=== PATIENT | female | born 1965 | race Caucasian/White ===

== ENCOUNTER → 2016-08-16 | Outpatient (CLI) | payer OTHER ==
[~2016-08-16] MED LIST: BND25 PO; DXY100 PO; LACTCAP3 PO; LVMIPEN SC; METF-382 PO; OXYC5TAB PO
[2016-08-16 10:25] LABS: ESTIMATED AVERAGE GLUCOSE 134 mg/dl; HA1C FLAG Normal (Normal)
[2016-08-16 10:54] LABS: ALT/SGPT 33 U/L (12-78); AST/SGOT 17 U/L (15-37); BLOOD UREA NITROGEN 18 mg/dl (7-18); BUN/CREATININE RATIO 32.3 (10-20); CALCIUM 9.4 mg/dl (8.5-10.1); CARBON DIOXIDE 30 mmol/L (21-32); CHLORIDE 101 mmol/L (98-107); CREATININE 0.57 mg/dl (0.60-1.20); GLUCOSE 170 mg/dl (70-99); POTASSIUM 4.4 mmol/L (3.5-5.1); SODIUM 140 mmol/L (136-145)
[2016-08-16 11:05] LABS: ALB/GLOB RATIO 1.2 (0.9-2); ALKALINE PHOSPHATASE 94 U/L (45-117); CHOLESTEROL 204 mg/dl (0-200); CHOLESTEROL/HDL RATIO 3.3; HDL CHOLESTEROL 62 mg/dl; LDL CHOLESTEROL CALCULATED 116 mg/dl; TRIGLYCERIDES 129 mg/dl (0-150); VERY LOW DENSITY LIPOPROT CALC 26 mg/dl
== END | disposition home or self-care (01) ==
LOC: C.LAB 09:05
PROVIDERS: ATTEND Family Medicine
DX: E11.65 Type 2 diabetes mellitus with hyperglycemia (principal)

== ENCOUNTER → 2017-08-28 | Outpatient (CLI) | payer OTHER ==
[~2017-08-28] MED LIST changes: -BND25 PO; +DIPH25CA5 PO
[2017-08-28 09:43] LABS: HEMATOCRIT 46.6 % (37-47); HEMOGLOBIN 15.1 g/dL (12.0-16.0); IG# 0.02 K/uL (0.00-0.02); LYMPH % 23.7 %; LYMPH ABS # 1.75 K/uL (1.2-3.4); MEAN CELL VOLUME 79.8 fL (80-100); MEAN CORPUSCULAR HEMOGLOBIN 25.9 pg (25-34); MEAN CORPUSCULAR HGB CONC 32.4 g/dl (32-36); MEAN PLATELET VOLUME 11.3 fL (7.4-10.4); MONO % 7.2 %; MONO ABS # 0.53 K/uL (0.11-0.59); NEUT % 68.8 %; NEUT ABS # 5.08 K/uL (1.4-6.5); PLATELET COUNT 217 K/uL (130-400); RED CELL DISTRIBUTION WIDTH CV 15.2 % (11.5-14.5); WHITE BLOOD COUNT 7.38 K/uL (4.8-10.8)
[2017-08-28 10:00] LABS: ALBUMIN 3.8 gm/dl (3.4-5.0); ALT/SGPT 31 U/L (12-78); AST/SGOT 14 U/L (15-37); BLOOD UREA NITROGEN 21 mg/dl (7-18); CALCIUM 8.8 mg/dl (8.5-10.1); CARBON DIOXIDE 29 mmol/L (21-32); CREATININE 0.66 mg/dl (0.60-1.20); GLUCOSE 187 mg/dl (70-99); POTASSIUM 4.4 mmol/L (3.5-5.1); SODIUM 133 mmol/L (136-145)
[2017-08-28 10:04] LABS: HEMOGLOBIN A1C 7.9 % (4.5-5.6)
[2017-08-28 10:11] LABS: ALKALINE PHOSPHATASE 141 U/L (45-117); CHOLESTEROL 202 mg/dl (0-200); LDL CHOLESTEROL CALCULATED 110 mg/dl; TOTAL PROTEIN 7.5 gm/dl (6.4-8.2)
== END | disposition home or self-care (01) ==
LOC: C.LAB 07:23
PROVIDERS: ATTEND Internal Medicine
DX: Z00.00 Encounter for general adult medical examination without abnormal findings (principal); E78.5 Hyperlipidemia, unspecified; I10 Essential (primary) hypertension; E11.9 Type 2 diabetes mellitus without complications

== ENCOUNTER → 2017-09-12 | Outpatient (CLI) | payer OTHER ==
--- NOTE | 2017-09-12 18:42 | DIAGNOSTIC IMAGING REPORT ---
CHEST 2 VIEWS ROUTINE CLINICAL HISTORY: 51 years-old Female presenting with COUGH. TECHNIQUE: PA and lateral views of the chest were obtained. COMPARISON: 03/17/2016. FINDINGS: Atherosclerosis of the aortic arch. Cardiac silhouette normal in size. Lungs and pleural spaces clear. Osseous structures normal. Upper abdomen normal. IMPRESSION: 1. No acute cardiopulmonary disease. Electronically signed by: Stan Burnham M.D. 09/12/2017 6:41 PM Dictated Date/Time: 09/12/2017 6:40 PM
== END | disposition home or self-care (01) ==
LOC: C.RAD 18:24
PROVIDERS: ATTEND Internal Medicine
DX: R05 Cough (principal)

== ENCOUNTER → 2017-10-23 | Outpatient (CLI) | payer OTHER ==
[2017-10-23 17:54] LABS: BLOOD UREA NITROGEN 18 mg/dl (7-18); CARBON DIOXIDE 27 mmol/L (21-32); GLUCOSE 235 mg/dl (70-99); SODIUM 134 mmol/L (136-145)
== END | disposition home or self-care (01) ==
LOC: C.LAB1850 16:06
PROVIDERS: ATTEND Internal Medicine
DX: I10 Essential (primary) hypertension (principal)

== ENCOUNTER → 2017-12-05 | Outpatient (CLI) | payer OTHER ==
[2017-12-05 12:34] LABS: BLOOD UREA NITROGEN 18 mg/dl (7-18); CARBON DIOXIDE 32 mmol/L (21-32); CREATININE 0.68 mg/dl (0.60-1.20); GLUCOSE 128 mg/dl (70-99); POTASSIUM 4.3 mmol/L (3.5-5.1); SODIUM 139 mmol/L (136-145)
[2017-12-05 12:46] LABS: HEMOGLOBIN A1C 7.8 % (4.5-5.6)
== END | disposition home or self-care (01) ==
LOC: C.LAB1850 10:29
PROVIDERS: ATTEND Nurse Practitioner Adult Health
DX: E11.65 Type 2 diabetes mellitus with hyperglycemia (principal); Z79.4 Long term (current) use of insulin; I10 Essential (primary) hypertension

== ENCOUNTER 2020-03-29 17:16 | Inpatient (IN) ==
[2020-03-29] MEDS ORDERED: MoRPHine SULFATE 4 MG/ML 1 ML CARP\\VIAL IV STA (18:44)
[2020-03-29] MEDS ORDERED: ONDANSETRON INJ 2 MG/ML 2 ML VIAL IV STA (18:44)
[2020-03-29] MEDS ORDERED: SODIUM CHLORIDE 0.9% 500 ML IV SCH (18:45)
--- NOTE | 2020-03-29 18:52 | Emergency Department Note ---
History of Present Illness General Chief complaint: Fall Stated complaint: fell, severe abd pain, back pain Time Seen by Provider: 03/29/20 18:30 Source: patient History of Present Illness Provider complaint: Upper abdominal pain Onset (ago): hour(s) Location: abdomen Radiation: back Severity: severe Pain Consistency: + constant Maximum Pain Intensity: 10 Quality: + other (Sore) Relieved By: + none Associated symptoms: + nausea/vomiting; no chest pain, no cough, no fever/chills, no headaches and no shortness of breath This is a 54-year-old female presents with abdominal pain after falling today. The patient states that she was cleaning her porch and the step was wet which caused her foot to slip and she fell backwards hitting her lower back into the deck. Since then she developed pain in the upper abdomen radiating around toward her back. She describes it as sore. She rates it a 10 on a 10 in severity. No alleviating factors. It is associated with vomiting. She states that she has been having self diagnosed gallbladder issues for the past 3 weeks. The patient states that when she had her daughter 30 years ago she was told that she had gallbladder problems. Over the past 3 weeks she has been having epigastric abdominal pain which got much worse after her fall at 2 PM today. She does state that she had some peirogies at 12:00 today but did not have much pain after that. She denies any fever, chest pain, shortness of breath, urinary symptoms or diarrhea. She denies cough or cold symptoms or known exposure to COVID-19. She denies any head or neck injury from the fall. She denies any urinary symptoms, black or bloody stools or diarrhea. Home Medications Home Medications Medication Instructions Recorded Confirmed Type cholecalciferol (vitamin D3) 25 1,000 units PO DAILY cap 05/29/19 03/29/20 History mcg (1,000 unit) capsule cyanocobalamin (vitamin B-12) 1,000 mcg PO DAILY tab 05/29/19 03/29/20 History 1,000 mcg tablet,extended release ramipril 10 mg capsule 10 mg PO DAILY #90 cap 09/23/19 03/29/20 Rx hydrochlorothiazide 25 mg tablet 25 mg PO DAILY #90 tab 10/22/19 03/29/20 Rx rosuvastatin 5 mg tablet 5 mg PO DAILY #90 tab 11/20/19 03/29/20 Rx Basaglar BeckyPen U-100 Insulin 100 90 units SQ DAILY 90 Days #6 box NS 01/24/20 03/29/20 Rx unit/mL (3 mL) subcutaneous liraglutide 0.6 mg/0.1 mL (18 mg/3 1.8 mg SUBCUT DAILY #27 ml 01/24/20 03/29/20 Rx mL) subcutaneous pen injector metformin 1,000 mg tablet 1,000 mg PO BID #180 tab 01/24/20 03/29/20 Rx Allergies Allergy/AdvReac Type Severity Reaction Status Date / Time latex Allergy Rash Unverified 03/29/20 21:39 Past Med/Surg History Medical History Controlled type 2 diabetes mellitus, with long-term current use of insulin Dyslipidemia Essential hypertension 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 Shingles Surgical History History of incision and drainage abdominal wall abscess--panniculitis History of tonsillectomy Family History Aunt Colorectal cancer Father H/O coronary artery bypass surgery age 70 Cardiac disorder Diabetes Gallbladder disease Hypertension Sister Gallbladder disease Mother Hypothyroidism Social History Smoking Status: Never smoker Second Hand Exposure: No; Hx Alcohol Use: No Hx Substance Use: No Preferred Language: Luxembourgish Visual Impairment: No Limitations Hearing Ability: Normal marital status: Single Current Living Situation: Family Current Living Situation Comment: daughter and father current occupational status: employed 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 and A total of 10 systems reviewed and were otherwise negative Physical Exam Vital Signs Vital Signs - 24 hr 03/29/20 17:27 03/29/20 19:02 03/29/20 21:00 Temperature 36.8 C Temperature Source Oral Pulse Rate 74 Pulse Rate [Finger] 68 75 Respiratory Rate 18 20 18 Respiratory Effort / Characteristics Non-Labored Spontaneous Respiratory Depth Normal Blood Pressure 193/73 H Blood Pressure [Left Arm] 224/93 H 167/90 H Blood Pressure Mean 113 Blood Pressure Mean [Left Arm] 136 115 Pulse Oximetry 100 100 94 Oxygen Delivery Method Room Air Room Air Sepsis Recent Fever Within 48 Hours No Sepsis New/Unexplained Change in Mental Status No Sepsis Action Taken by Nursing No Action Required 03/29/20 22:46 03/29/20 23:31 Temperature Temperature Source Pulse Rate Pulse Rate [Finger] 65 80 Respiratory Rate 20 20 Respiratory Effort / Characteristics Non-Labored Spontaneous Non-Labored Spontaneous Respiratory Depth Normal Normal Blood Pressure Blood Pressure [Left Arm] 179/106 H 169/118 H Blood Pressure Mean Blood Pressure Mean [Left Arm] 130 135 Pulse Oximetry 99 98 Oxygen Delivery Method Room Air Room Air Sepsis Recent Fever Within 48 Hours Sepsis New/Unexplained Change in Mental Status Sepsis Action Taken by Nursing Constitutional: Vital signs reviewed. Eyes: Pupils are equal round reactive to light. Conjunctiva are noninjected. ENT: Pharynx is clear without erythema or exudate. Mucous membranes are dry. Neck supple without meningeal signs. Respiratory: Clear to auscultation bilaterally. Breath sounds are equal bilaterally. Cardiovascular: Regular rate and rhythm. No rubs or gallops. GI: Soft, nondistended with epigastric and right upper quadrant tenderness. No Del Rio sign. Bowel sounds are present. Musculoskeletal: No midline tenderness to the thoracic or lumbar spine. She does have a linear bruise across her right lower back without rib tenderness. Integumentary: No cyanosis. or jaundice. Neurological: The patient is awake and alert. No focal deficits. Psychiatric: Normal affect. Not anxious appearing. Course Administered Medications Discontinued Medications Hydromorphone HCl (Hydromorphone Inj 0.5 Mg/0.5 Ml Syr) 0.5 mg IV NOW STA Stop: 03/29/20 20:48 Last Admin: 03/29/20 20:57 Dose: 0.5 mg Documented by: [id number] Hydromorphone HCl (Hydromorphone Inj 0.5 Mg/0.5 Ml Syr) 0.25 mg IV NOW STA Stop: 03/29/20 22:22 Last Admin: 03/29/20 22:27 Dose: 0.25 mg Documented by: [id number] Sodium Chloride (Nss) 500 mls @ 999 mls/hr IV .Q31M LUZ Stop: 03/29/20 19:15 Last Infusion: 03/29/20 19:35 Dose: 0 mls/hr Documented by: [id number] Admin: 03/29/20 19:00 Dose: 999 mls/hr Documented by: [id number] Ioversol (Ioversol 100ml) 93 ml IV ONCE ONE Stop: 03/29/20 20:07 Last Admin: 03/29/20 20:06 Dose: 93 ml Documented by: [id number] Morphine Sulfate (Morphine Sulfate 4 Mg/Ml 1 Ml Carp\Vial) 4 mg IV NOW STA Stop: 03/29/20 18:45 Last Admin: 03/29/20 19:00 Dose: 4 mg Documented by: [id number] Ondansetron HCl (Ondansetron Inj 2 Mg/Ml 2 Ml Vial) 4 mg IV NOW STA Stop: 03/29/20 18:45 Last Admin: 03/29/20 19:00 Dose: 4 mg Documented by: [id number] Medical Decision Making Differential Diagnosis Liver laceration, hemoperitoneum, cholecystitis, cholelithiasis, pancreatitis, peptic ulcer disease, rib fracture Medical Records Attestation: I reviewed the patient's medical records. I did perform a limited focused review of portions of the patient's old chart on the electronic medical record. The patient has had no recent pertinent visits to this hospital. Home Medications Current Medication List: was personally reviewed by me Laboratory Data Attestation: I reviewed the patient's lab results. Result diagrams: 03/29/20 18:46 03/29/20 18:46 Lab Results 03/29/20 03/29/20 03/29/20 Range/Units 18:46 18:46 18:51 WBC 8.68 (4.8-10.8) K/uL RBC 5.39 (4.2-5.4) M/uL Hgb 14.3 (12.0-16.0) g/dL POC Hgb 15.0 (12.0-16.0) g/dl Hct 43.5 (37-47) % POC Hct 44 (37-47) % MCV 80.7 (80-100) fL MCH 26.5 (25-34) pg MCHC 32.9 (32-36) g/dL RDW Std Deviation 44.4 (36.4-46.3) fL RDW Coeff of Jim 15.1 H (11.5-14.5) % Plt Count 179 (130-400) K/uL MPV 10.5 H (7.4-10.4) fL Immature Gran % (Auto) 0.2 % Neut % (Auto) 80.1 % Lymph % (Auto) 13.1 % Moody % (Auto) 6.6 % Eos % (Auto) 0.0 % Baso % (Auto) 0.0 % Neut # (Auto) 6.95 H (1.4-6.5) K/uL Lymph # (Auto) 1.14 L (1.2-3.4) K/uL Moody # (Auto) 0.57 (0.11-0.59) K/uL Eos # (Auto) 0.00 (0-0.5) K/uL Baso # (Auto) 0.00 (0-0.2) K/uL Immature Gran # (Auto) 0.02 (0.00-0.02) K/uL POC Sodium 138 (135-144) mmol/L Sodium 138 (136-145) mmol/L POC Potassium 3.7 (3.3-5.0) mmol/L Potassium 3.6 (3.5-5.1) mmol/L POC Chloride 99 L (101-112) mmol/L Chloride 101 (98-107) mmol/L Carbon Dioxide 28 (21-32) mmol/L POC Total CO2 27 (24-31) mmol/L Anion Gap 9.0 (3-11) POC Anion Gap 16.0 (16-25) mmol/L POC BUN 28 H (7-18) mg/dl BUN 28 H (7-18) mg/dl Creatinine 0.99 (0.6-1.2) mg/dl POC Creatinine 0.9 (0.6-1.3) mg/dl Est Cr Clr Drug Dosing 79.2 ml/min Est GFR ( Amer) 74.9 Est GFR (Non-Af Amer) 64.6 BUN/Creatinine Ratio 28.3 H (10-20) Glucose 160 H (70-99) mg/dl POC Glucose (other) 162 H (70-99) mg/dl Calcium 9.8 (8.5-10.1) mg/dl POC Ioniz Calcium Gabriella 1.19 (1.12-1.32) mmol/l Total Bilirubin 0.6 (0.2-1) mg/dl AST 20 (15-37) U/L ALT 26 (12-78) U/L Alkaline Phosphatase 108 (45-117) U/L Total Protein 8.0 (6.4-8.2) gm/dl Albumin 4.2 (3.4-5.0) gm/dl Globulin 3.8 (2.5-4.0) gm/dl Albumin/Globulin Ratio 1.1 (0.9-2) Lipase 350 (73-393) U/L Urine Color Urine Appearance (Clear) Urine pH (4.5-7.5) Ur Specific [place] (1.000-1.030) Urine Protein (Negative) Urine Glucose (UA) (Negative) Urine Ketones (Negative) Urine Blood (Negative) Urine Nitrite (Negative) Urine Bilirubin (Negative) Urine Urobilinogen (Negative) Ur Leukocyte Esterase (Negative) 03/29/20 Range/Units 19:05 WBC (4.8-10.8) K/uL RBC (4.2-5.4) M/uL Hgb (12.0-16.0) g/dL POC Hgb (12.0-16.0) g/dl Hct (37-47) % POC Hct (37-47) % MCV (80-100) fL MCH (25-34) pg MCHC (32-36) g/dL RDW Std Deviation (36.4-46.3) fL RDW Coeff of Jim (11.5-14.5) % Plt Count (130-400) K/uL MPV (7.4-10.4) fL Immature Gran % (Auto) % Neut % (Auto) % Lymph % (Auto) % Moody % (Auto) % Eos % (Auto) % Baso % (Auto) % Neut # (Auto) (1.4-6.5) K/uL Lymph # (Auto) (1.2-3.4) K/uL Moody # (Auto) (0.11-0.59) K/uL Eos # (Auto) (0-0.5) K/uL Baso # (Auto) (0-0.2) K/uL Immature Gran # (Auto) (0.00-0.02) K/uL POC Sodium (135-144) mmol/L Sodium (136-145) mmol/L POC Potassium (3.3-5.0) mmol/L Potassium (3.5-5.1) mmol/L POC Chloride (101-112) mmol/L Chloride (98-107) mmol/L Carbon Dioxide (21-32) mmol/L POC Total CO2 (24-31) mmol/L Anion Gap (3-11) POC Anion Gap (16-25) mmol/L POC BUN (7-18) mg/dl BUN (7-18) mg/dl Creatinine (0.6-1.2) mg/dl POC Creatinine (0.6-1.3) mg/dl Est Cr Clr Drug Dosing ml/min Est GFR ( Amer) Est GFR (Non-Af Amer) BUN/Creatinine Ratio (10-20) Glucose (70-99) mg/dl POC Glucose (other) (70-99) mg/dl Calcium (8.5-10.1) mg/dl POC Ioniz Calcium Gabriella (1.12-1.32) mmol/l Total Bilirubin (0.2-1) mg/dl AST (15-37) U/L ALT (12-78) U/L Alkaline Phosphatase (45-117) U/L Total Protein (6.4-8.2) gm/dl Albumin (3.4-5.0) gm/dl Globulin (2.5-4.0) gm/dl Albumin/Globulin Ratio (0.9-2) Lipase (73-393) U/L Urine Color Yellow Urine Appearance Clear (Clear) Urine pH 5.0 (4.5-7.5) Ur Specific [place] 1.022 (1.000-1.030) Urine Protein Negative (Negative) Urine Glucose (UA) Negative (Negative) Urine Ketones Negative (Negative) Urine Blood Negative (Negative) Urine Nitrite Negative (Negative) Urine Bilirubin Negative (Negative) Urine Urobilinogen Negative (Negative) Ur Leukocyte Esterase Negative (Negative) Imaging Data Attestation: I personally reviewed and interpreted this imaging study as fol lows: My Impression: Chest x-ray per my interpretation shows no acute cardiopulmonary process. X-rays of the right ribs do not show any acute fracture or dislocati on. Radiologist's Impression: CT ABDOMEN & PELVIS With Contrast: The lung bases are clear Right coronary calcification or stent The gallbladder is distended and contains several small calcified dependent layering gallstones, clinically correlate No evidence of calcified duct stone Abdominal solid organs and abdominal aorta appear within limits No bowel dilation or free air Normal caliber appendix without secondary signs No free fluid Ovaries appear within limits Radiologist: Mykel Soto M.D. Study ready at 20:19 and initial results transmitted at 20:33 CT L SPINE: No fracture or malalignment No CT evidence of significant appearing central or foraminal canal narrowing Spondylosis Radiologist: Mykel Soto M.D. Study ready at 20:19 and initial results transmitted at 20:35 US GALLBLADDER: Cholelithiasis. No significant gallbladder wall thickening. Common bile duct is upper normal measuring 6 mm. Negative sonographic Del Rio's sign. Correlate clinically regarding cholecystitis. Heterogeneous liver parenchyma Radiologist: Adriana Mayen M.D. Study ready at 22:18 and initial results transmitted at 22:32 ECG Data Attestation: I personally reviewed and interpreted this ECG as follows: Indication: + abdominal pain Rate (beats per minute): 66 Rhythm: + normal sinus ECG Intervals/blocks: + Normal QRS ECG ST segments: no ST depression and no ST elevation ECG Findings: no PVCs Blood Pressure Blood Pressure Findings: Elevated blood pressure Blood Pressure Disposition: Referred to patients primary care provider MDM Narrative I did evaluate the patient as noted above. The patient is presenting with abdominal pain after a fall today at 2 PM. I did attempt to perform a FAST exam on her but unfortunately due to body habitus this was limited. No hemoperitoneum was noted. IV access was established. She was treated with IV morphine and Zofran. I did place an order for continuous cardiac monitoring. The monitor showed normal sinus rhythm at a rate of 68 bpm. I did order and personally review the patient's 12-lead EKG as described above. She has no acute ischemic changes on her EKG. I did order and personally reviewed the images of the patient's chest/rib x-ray as described above. There is no evidence of acute fracture or dislocation of the ribs. No pneumothorax. I did order a urine analysis. She has no UTI or hematuria. I did order and review the patient's blood work as noted in the electronic medical record. She does not have leukocytosis or anemia. Electrolytes and LFTs and lipase are all unremarkable. I did order a CT of the abdomen and pelvis and lumbar spine. I did review the images myself as well as the radiology report as described above. There is no evidence of solid organ injury. She does have a distended gallbladder with multiple gallstones. There is no evidence of acute fracture of the lumbar spine. I did reassess the patient. She continues to have pain. I did treat her with Dilaudid IV. I did order a right upper quadrant ultrasound which shows gallstones but no evidence of cholecystitis or biliary obstruction. On reassessment the patient continues to have pain. She initially stated she felt better but after the ultrasound her pain got worse. I did feel she should be hospitalized for further care and evaluation including surgical consultation and/or HIDA scan. I did treat her with additional Dilaudid IV. I did discuss the case with the hospitalist and pillowcase cutter. Impression & Plan Intractable abdominal pain, Cholelithiasis, Fall Discharge Plan Visit Data Chief Complaint: Fall Stated Complaint: fell, severe abd pain, back pain ED Provider: Mansoor Jorgensen Discharge Problem: Intractable abdominal pain, Cholelithiasis, Fall Patient Disposition: Being Evaluated by Hospitalist Forms Stand Alone Forms: [facility] Prescriptions Prescriptions: No Action ramipril 10 mg capsule 10 mg PO DAILY Qty: 90 RF: 3 hydrochlorothiazide 25 mg tablet 25 mg PO DAILY Qty: 90 RF: 1 rosuvastatin 5 mg tablet 5 mg PO DAILY Qty: 90 RF: 3 cholecalciferol (vitamin D3) 1,000 unit capsule 1,000 units PO DAILY RF: 0 cyanocobalamin (vitamin B-12) 1,000 mcg tablet extended release 1,000 mcg PO DAILY RF: 0 metformin 1,000 mg tablet 1,000 mg PO BID Qty: 180 RF: 3 liraglutide 0.6 mg/0.1 mL (18 mg/3 mL) pen injector 1.8 mg subcut DAILY Qty: 27 RF: 3 Basaglar KwikPen U-100 Insulin 100 unit/mL (3 mL) insulin pen 90 units SQ DAILY 90 Days Qty: 6 RF: 3 Referrals Referrals: Stan Fernández MD [Primary Care Provider] - Discharge Problem: Cholelithiasis Qualifiers: Cholelithiasis location: gallbladder Cholecystitis presence: without cholecystitis Biliary obstruction: without biliary obstruction Qualified Code (s): K80.20 - Calculus of gallbladder without cholecystitis without obstruction Fall Qualifiers: Encounter type: initial encounter Qualified Code(s): W19.XXXA - Unspecified fall, initial encounter
[2020-03-29 18:59] LABS: Hematocrit (blood only) 43.5 % (37-47); Hemoglobin 14.3 g/dL (12.0-16.0); Immature Granulocytes # (auto) 0.02 K/uL (0.00-0.02); Immature Granulocytes % (auto) 0.2 %; Lymphocytes # (auto) 1.14 K/uL (1.2-3.4); Lymphocytes % (auto) 13.1 %; Mean Corpuscular Hemoglobin 26.5 pg (25-34); Mean Corpuscular Hgb Conc 32.9 g/dL (32-36); Mean Corpuscular Volume 80.7 fL (80-100); Mean Platelet Volume 10.5 fL (7.4-10.4); Monocytes # (auto) 0.57 K/uL (0.11-0.59); Monocytes % (auto) 6.6 %; Neutrophils # (auto) 6.95 K/uL (1.4-6.5); Neutrophils % (auto) 80.1 %; Platelet Count 179 K/uL (130-400); RDW Coefficient of Variation 15.1 % (11.5-14.5); RDW Standard Deviation 44.4 fL (36.4-46.3); Red Blood Count 5.39 M/uL (4.2-5.4); White Blood Count 8.68 K/uL (4.8-10.8)
[2020-03-29 19:07] LABS: iSTAT Creatinine 0.9 mg/dl (0.6-1.3); iSTAT Ionized Calcium 1.19 mmol/l (1.12-1.32); iSTAT Potassium 3.7 mmol/L (3.3-5.0)
[2020-03-29 19:23] LABS: Appearance Urine Clear (Clear); Bilirubin Urine Negative (Negative); Blood Urine Negative (Negative); Color Urine Yellow; Glucose Urine UA Negative (Negative); Ketones Urine Negative (Negative); Leukocyte Esterase Urine Negative (Negative); Nitrite Urine Negative (Negative); Protein Urine Negative (Negative); Specific Gravity Urine 1.022 (1.000-1.030); Urobilinogen Urine Negative (Negative)
[2020-03-29 19:24] LABS: Albumin Level 4.2 gm/dl (3.4-5.0); BUN Creatinine Ratio 28.3 (10-20); Calcium 9.8 mg/dl (8.5-10.1); Creatinine Clr Calc Pharmacy 79.2 ml/min; Est GFR (African American) 74.9; Est GFR (Non-African American) 64.6; Potassium 3.6 mmol/L (3.5-5.1)
[2020-03-29 19:27] LABS: Albumin Globulin Ratio 1.1 (0.9-2); Bilirubin,Total 0.6 mg/dl (0.2-1); Globulin 3.8 gm/dl (2.5-4.0)
[2020-03-29] MEDS ORDERED: IOVERSOL 100ml IV ONE (20:06)
[2020-03-29] MEDS ORDERED: HYDROmorphone INJ 0.5 MG/0.5 ML SYR IV STA ×2 (20:47→22:21)
--- NOTE | 2020-03-30 00:51 | History & Physical Report ---
Date of Service March 30, 2020 Assessment & Plan (1) Intractable abdominal pain: Effie Franklin is a 54 y/o is a with past medical hx of DM2-insulin dependent, HLD, HTN, Abdominal Pain who presented to [facility] ED for Fall. But was admitted for intractable abdominal pain. - She notes coming here for a fall, but that she has been dealing with RUQ pain that has increased in severity over the past 3 weeks. She has turned down outpatient workup in the past. - It is worsened with lettuce and spicy foods over the past 3 weeks, which is odd because lettuce wouldn't cause contraction of the gallbladder...unless the dressing was fatty. - In the ED, she is afebrile, no elevated WBC or signs of infection, Lipase WNL, ALT/AST WNL. - Imaging workup did show gallstones, and common bile duct upper limit of normal 6mm. Will order HIDA scan for further workup. - Clinically signs do not point to acute cholecystitis, there is no elevated WBC, there is no elevated LFTs for a choledolecholithiasis. [place] Rio's was negative. - Discussed that cholecystectomy wouldn't be indicated for need to be done emergent or urgently. Since, she didn't have surgical referral or work up in outpatient this could be worked up as outpatient. But, she would like admission to hospital for pain management and further workup. Will work up with HIDA. Surgical consult not indicated at this time. - Will provide analgesics but already with significant dosage to opioid naive patient, will be cautious. Discussed that she most likely will have pain from fall for several days and that this usually wouldn't require opioids as there was no acute fractures or injury from fall. - It is difficult to associate how fall would have exacerbated her gallbladder pain. - Other differentials could be gastritis or adverse effect from her Victoza. - Will make NPO overnight in case day time team would like to pursue surgical consult if HIDA scan shows something of interest. I believe surgical referral for outpatient would be appropriate. Dispo: Obs, med/surg Code: Full FENGI: NPO, NSS @ 125ml/hr DVT ppx: SCDs (2) Fall: Mechanical, no acute fractures. Suspect will be sore from fall in upcoming days. (3) Cholelithiasis: as above (4) Essential hypertension: c/w HCTZ 25mg PO daily Ramipril 10mg non formulary (5) Dyslipidemia: Rosuvastatin 5mg PO daily (6) Controlled type 2 diabetes mellitus, with long-term current use of insulin: pharmacy consult placed, insulin dependent, currently NPO (7) Morbid obesity: Recommend lifestyle modifications. History of Present Illness Chief Complaint: Abdominal Pain Primary Care Provider: Stan Fernández MD Effie Franklin is a 54 y/o is a with past medical hx of DM2-insulin dependent, HLD, HTN, Abdominal Pain who presented to [facility] ED for Fall. She notes today she fell about 2pm after slipping on wet porch she was cleaning. She fell backwards and struck her lower back against the deck. She notes she got up and was recovering from fall when about 30 minutes later she had 10/10 RUQ pain. She notes the pain has been constant since. She notes coming here for a fall, but that she has been dealing with RUQ pain that has increased in severity over the past 3 weeks. It is worsened with lettuce and spicy foods over the past 3 weeks. She notes she has brought this up to her PCP, but she has always declined the workup/US Gallbladder in the office. She notes she has been using lechitin in attempt to treat her this. She notes she had perorgies and saur kraut at 12pm today. She notes that the ride took 45 minutes here from where she lives and she almost passed out from the pain. She notes she had nausea and vomiting from pain when she arrived. She denies any recent fever, chills, chest pain, shortness of breath. In the ED, she is afebrile, no elevated WBC or signs of infection, Lipase WNL, ALT/AST WNL. Imaging with CT Abd Pelvis w/IV contrast - The gallbladder is distended and contains several small calcified dependent layering gallstone, correlate clinically. Normal appendix. CT L spine no evidence of fracture or malalignment US gallbladder - Cholelithiasis, no significant gallbladder wall thickening, common bile duct upper limit of normal 6mm, negative del rio's. CXR no evidence of rib fracture. She received Morphine 4mg IV, Dilaudid 0.25mg IV, Dilaudid 0.5mg, Zofran 4mg IV, NS 500cc. Allergies Allergy/AdvReac Type Severity Reaction Status Date / Time latex Allergy Rash Unverified 03/29/20 21:39 Home Medications Home Medications Medication Instructions Recorded Confirmed Type cholecalciferol (vitamin D3) 25 1,000 units PO DAILY cap 05/29/19 03/29/20 History mcg (1,000 unit) capsule cyanocobalamin (vitamin B-12) 1,000 mcg PO DAILY tab 05/29/19 03/29/20 History 1,000 mcg tablet,extended release ramipril 10 mg capsule 10 mg PO DAILY #90 cap 09/23/19 03/29/20 Rx hydrochlorothiazide 25 mg tablet 25 mg PO DAILY #90 tab 10/22/19 03/29/20 Rx rosuvastatin 5 mg tablet 5 mg PO DAILY #90 tab 11/20/19 03/29/20 Rx Basaglar KwikPen U-100 Insulin 100 90 units SQ DAILY 90 Days #6 box NS 01/24/20 03/29/20 Rx unit/mL (3 mL) subcutaneous liraglutide 0.6 mg/0.1 mL (18 mg/3 1.8 mg SUBCUT DAILY #27 ml 01/24/20 03/29/20 Rx mL) subcutaneous pen injector metformin 1,000 mg tablet 1,000 mg PO BID #180 tab 01/24/20 03/29/20 Rx Past Med/Surg History Medical History Controlled type 2 diabetes mellitus, with long-term current use of insulin Dyslipidemia Essential hypertension 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 Shingles Surgical History History of incision and drainage abdominal wall abscess--panniculitis History of tonsillectomy Family History Aunt Colorectal cancer Father H/O coronary artery bypass surgery age 70 Cardiac disorder Diabetes Gallbladder disease Hypertension Sister Gallbladder disease Mother Hypothyroidism Social History Smoking Status: Never smoker Second Hand Exposure: No; Hx Alcohol Use: No Hx Substance Use: No Preferred Language: Khmer Communication Ability: Effective Visual Impairment: No Limitations Hearing Ability: Normal Beliefs That Will Affect Care: None marital status: Single Current Living Situation: Parent, Family and Other Current Living Situation Comment: patients father and daughter live with her current occupational status: employed 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 Other Information That Helps Us Care for You: No Feels Safe at Home: Yes Safety Concerns: Feels Safe At This Time Childhood Exposure to Second-Hand Smoke: No Dental Care, Regularly: No Physical Activity Frequency: Daily Seatbelt Use: always Sunscreen Use: Yes Review of Systems Review of Systems: All systems reviewed & are unremarkable except as noted in HPI & below Constitutional: no fever and no chills Eyes: no diplopia and no spots in vision Ear, Nose, Mouth, Throat: no nasal congestion, no nasal obstruction and no epistaxis Respiratory: no cough and no dyspnea Cardiovascular: no chest pain and no syncope Gastrointestinal: as per Subjective / HPI; no constipation and no diarrhea/loose stools Genitourinary: no dysuria and no urinary frequency Musculoskeletal: as per Subjective / HPI; no neck pain, no joint pain and no deformity Integumentary: no rash and no skin ulcer Neurologic: as per Subjective / HPI; no localized weakness and no numbness Endocrine: no polydipsia, no polyphagia and no polyuria Physical Exam Constitutional: WD/WN, vitals as above cooperative and comfortable able to sit up when asked to auscultate lungs without noticable pain; nods off occasionally during interview Eyes: PERRL, conjunctivae normal, anicteric sclerae ENMT: external ear and nose normal, oropharynx normal Neck: normal visual inspection and trachea midline Respiratory: normal respiratory effort, lungs clear to auscultation Cardiovascular: Rate/Rhythm: regular rate and regular rhythm Extremities: no calf tenderness Gastrointestinal (Abdomen): Inspection/Auscultation: abdomen normal to inspection and normal bowel sounds Percussion/Palpation: + abdomen tender (mild epigastric without rebound) and abdomen soft; no guarding and abdomen not rigid negative del rio Musculoskeletal: Head/Neck/Chest: normocephalic and head atraumatic Skin: no rashes, warm and dry Neurologic: moves all extremities and awake Psychiatric: Orientation: alert and oriented x 3 Results & Data Results & Data ([facility]) Vital Signs (Past 12 Hours) Vital Signs Temp Pulse Pulse Resp BP BP Pulse Ox 03/29/20 23:31 80 20 169/118 H 98 03/29/20 22:46 65 20 179/106 H 99 03/29/20 21:00 75 18 167/90 H 94 03/29/20 19:02 68 20 224/93 H 100 03/29/20 17:27 36.8 C 74 18 193/73 H 100 Laboratory Results Laboratory Results - last 24 hr 03/29/20 03/29/20 03/29/20 18:46 18:46 18:51 WBC 8.68 RBC 5.39 Hgb 14.3 POC Hgb 15.0 Hct 43.5 POC Hct 44 MCV 80.7 MCH 26.5 MCHC 32.9 RDW Std Deviation 44.4 RDW Coeff of Jim 15.1 H Plt Count 179 MPV 10.5 H Immature Gran % (Auto) 0.2 Neut % (Auto) 80.1 Lymph % (Auto) 13.1 [place] % (Auto) 6.6 Eos % (Auto) 0.0 Baso % (Auto) 0.0 Neut # (Auto) 6.95 H Lymph # (Auto) 1.14 L [place] # (Auto) 0.57 Eos # (Auto) 0.00 Baso # (Auto) 0.00 Immature Gran # (Auto) 0.02 POC Sodium 138 Sodium 138 POC Potassium 3.7 Potassium 3.6 POC Chloride 99 L Chloride 101 Carbon Dioxide 28 POC Total CO2 27 Anion Gap 9.0 POC Anion Gap 16.0 POC BUN 28 H BUN 28 H Creatinine 0.99 POC Creatinine 0.9 Est Cr Clr Drug Dosing 79.2 Est GFR ( Amer) 74.9 Est GFR (Non-Af Amer) 64.6 BUN/Creatinine Ratio 28.3 H Glucose 160 H POC Glucose (other) 162 H Calcium 9.8 POC Ioniz Calcium Gabriella 1.19 Total Bilirubin 0.6 AST 20 ALT 26 Alkaline Phosphatase 108 Total Protein 8.0 Albumin 4.2 Globulin 3.8 Albumin/Globulin Ratio 1.1 Lipase 350 Urine Color Urine Appearance Urine pH Ur Specific [place] Urine Protein Urine Glucose (UA) Urine Ketones Urine Blood Urine Nitrite Urine Bilirubin Urine Urobilinogen Ur Leukocyte Esterase 03/29/20 19:05 WBC RBC Hgb POC Hgb Hct POC Hct MCV MCH MCHC RDW Std Deviation RDW Coeff of Jim Plt Count MPV Immature Gran % (Auto) Neut % (Auto) Lymph % (Auto) [place] % (Auto) Eos % (Auto) Baso % (Auto) Neut # (Auto) Lymph # (Auto) [place] # (Auto) Eos # (Auto) Baso # (Auto) Immature Gran # (Auto) POC Sodium Sodium POC Potassium Potassium POC Chloride Chloride Carbon Dioxide POC Total CO2 Anion Gap POC Anion Gap POC BUN BUN Creatinine POC Creatinine Est Cr Clr Drug Dosing Est GFR ( Amer) Est GFR (Non-Af Amer) BUN/Creatinine Ratio Glucose POC Glucose (other) Calcium POC Ioniz Calcium Gabriella Total Bilirubin AST ALT Alkaline Phosphatase Total Protein Albumin Globulin Albumin/Globulin Ratio Lipase Urine Color Yellow Urine Appearance Clear Urine pH 5.0 Ur Specific [place] 1.022 Urine Protein Negative Urine Glucose (UA) Negative Urine Ketones Negative Urine Blood Negative Urine Nitrite Negative Urine Bilirubin Negative Urine Urobilinogen Negative Ur Leukocyte Esterase Negative Diagnostic Findings Imaging with CT Abd Pelvis w/IV contrast - The gallbladder is distended and contains several small calcified dependent layering gallstone, correlate clinically. Normal appendix. CT L spine no evidence of fracture or malalignment US gallbladder - Cholelithiasis, no significant gallbladder wall thickening, common bile duct upper limit of normal 6mm, negative del rio's. CXR no evidence of rib fracture. Medications Administered Code Status & VTE Plan Code Status Full Code VTE Prophylaxis Plan VTE Prophylaxis will be ordered: Yes Supervising Physician Co-Signing Physician Notes Patient seen and examined, chart reviewed, case discussed with Dr. Reese and I agree with his assessment and plan as documented above Resident Activity Tracking Resident Involvement: Resident Care Provided Care Provided: Adult Hospital Medicine (1) Fall Encounter type: initial encounter Qualified Code(s): W19.XXXA - Unspecified fall, initial encounter (2) Cholelithiasis Biliary obstruction: without biliary obstruction Cholecystitis presence: without cholecystitis Cholelithiasis location: gallbladder Qualified Code(s): K80.20 - Calculus of gallbladder without cholecystitis without obstruction
[2020-03-30] MEDS ORDERED: GLUCAGON FOR INJ 1 MG VIAL SQ PRN (01:15)
[2020-03-30] MEDS ORDERED: GLUCOSE 40% GEL 15 GM TUBE PO PRN (01:15)
[2020-03-30] MEDS ORDERED: GLUCOSE 10 TABS/TUBE PO PRN (01:15)
[2020-03-30] MEDS ORDERED: DEXTROSE 50% 50 ML SYRINGE IV PRN (01:15)
[2020-03-30] MEDS ORDERED: DC ALL PREVIOUSLY ORDERED DIABETES MEDS ONE (01:15)
[2020-03-30] MEDS ORDERED: CARBOHYDRATES FOR HYPOGLYCEMIA PO PRN (01:15)
[2020-03-30] MEDS ORDERED: SODIUM CHLORIDE 0.9% 1000ML 1,000 ML IV SCH ×2 (01:15→09:15)
[2020-03-30] MEDS ORDERED: POLYETHYLENE (MIRALAX) 17 GM PACK PO PRN (01:15)
[2020-03-30] MEDS ORDERED: OXYCODONE HCL IR 5 MG TAB (IMMEDIATE RELEASE) PO PRN ×2 (01:15→17:50)
[2020-03-30] MEDS: ACETAMINOPHEN 1,000 MG/100 ML VIAL IV PRN ×2 (01:57→12:14)
[2020-03-30] MEDS: ONDANSETRON INJ 2 MG/ML 2 ML VIAL IV PRN ×3 (01:58→22:24)
[2020-03-30] MEDS: HYDROmorphone INJ 0.5 MG/0.5 ML SYR IV PRN ×2 (01:58→02:10)
[2020-03-30] MEDS ORDERED: Nursing to Pharmacy Communication SCH (02:30)
[2020-03-30] MEDS ORDERED: PHARMACY GLYCEMIC MGMT CONSULT PRN (04:52)
[2020-03-30] MEDS ORDERED: INSULIN GLARGINE SOLOSTAR 100 UNITS/ML 3 ML PEN SC SCH ×3 (06:00)
[2020-03-30] MEDS: INSULIN ASPART 100 UNITS/ML 3 ML PEN SC SCH ×5 (06:23→23:37)
--- NOTE | 2020-03-30 06:43 | Billing Data ---
Date of Service March 30, 2020 Coding Level of Care Code 80577 OBS Care - Level 3
--- NOTE | 2020-03-30 07:08 | XRay Report ---
XR ribs RT min 3V w CXR1V CLINICAL HISTORY: Fall. Evaluate for fracture. COMPARISON: Chest radiograph September 12, 2017. FINDINGS: Cardiomediastinal silhouette is stable. No pneumothorax or pleural effusion is noted. No a irspace opacities are identified. No acute right rib fractures are identified. IMPRESSION: No pneumothorax. No acute right rib fractures identified. ACT 112: Negative or not required by law. Electronically signed by: Jeremy Weiss M.D. 03/30/2020 7:07 AM
[2020-03-30 07:13] LABS: Estimated Average Glucose 137 mg/dl; Hemoglobin A1C 6.4 % (4.5-5.6)
--- NOTE | 2020-03-30 07:31 | CT Scan Report ---
CT OF THE ABDOMEN AND PELVIS WITH CONTRAST CLINICAL HISTORY: fall eval for liver lac/cholecystitis COMPARISON STUDY: Right upper quadrant ultrasound March 21, 2016. TECHNIQUE: Following IV administration of 93 mL of Optiray-320, axial images of the abdomen and pelvi s were obtained from the lung bases to the proximal femurs. Images were reviewed in the axial, sagitt al, and coronal planes. IV contrast was administered without complication. Automated exposure contro l was utilized for the study. A dose lowering technique was utilized adhering to the principles of A ALEXX. CT DOSE: 1606.65 mGy.cm FINDINGS: Imaged portions of the lower chest demonstrate a probable acute nondisplaced fracture of th e anterior right eighth rib. No pneumatosis, free air or portal venous gas is present. There is fatty infiltration liver. There is nodularity of the liver surface which suggests cirrhosis. There are gal lstones within the gallbladder. Gallbladder is moderately distended. There is trace fluid adjacent to the gallbladder neck and a probable 3 mm calculus within the cystic duct. The spleen, adrenal glands , kidneys and pancreas are unremarkable. Subcentimeter lesion within the upper pole of the right kidn ey favors a cyst. There is no peripancreatic infiltration. The caliber and wall thickness of small an d large bowel are normal. There is no ascites. There is no lymphadenopathy. No hydronephrosis. IMPRESSION: 1. Acute nondisplaced fracture of the anterior right eighth rib. This finding will be called/faxed to the floor following dictation. No additional acute traumatic findings on this exam. 2. Moderate gallbladder distention and cholelithiasis. Trace fluid adjacent to the gallbladder neck a nd a probable 3 mm calculus within the cystic duct. These findings raise the possibility of acute cho lecystitis. 3. Fatty infiltration of the liver. Probable cirrhosis. Findings discussed with Dr. Lyles at time of dictation. ACT 112: Negative or not required by law. Electronically signed by: Jeremy Weiss M.D. 03/30/2020 7:29 AM
--- NOTE | 2020-03-30 08:02 | CT Scan Report ---
CT lumbar spine wo con CT DOSE: CLINICAL HISTORY: Back pain status post trauma TECHNIQUE: Helical images were acquired in transverse plane. Reformatted sagittal and coronal images were reviewed. A dose lowering technique was utilized adhering to the principles of ALARA. CONTRAST: No contrast was administered COMPARISON STUDY: None. FINDINGS: L1-2 level: There is no evidence of significant disc bulge or focal herniation. There is no evidence of spinal or foraminal stenosis. L2-3 level: There is no evidence of significant disc bulge or focal herniation. There is no evidence of spinal or foraminal stenosis. L3-4 level: There is a circumferential disc bulge and mild spinal stenosis. There is no significant f oraminal narrowing L4-5 level: There is a circumferential disc bulge and mild to moderate spinal stenosis. There is no s ignificant foraminal narrowing L5-S1 level: There is no evidence of significant disc bulge or focal herniation. There is no evidence of spinal or foraminal stenosis. No acute fractures or traumatic subluxations are visualized. IMPRESSION: No fractures or subluxations are visualized. ACT 112: Negative or not required by law. Electronically signed by: Boom Tuttle M.D. 03/30/2020 8:01 AM
--- NOTE | 2020-03-30 08:13 | Ultrasound Report ---
Biliary ultrasound CLINICAL HISTORY: Right upper quadrant abdominal pain cholelithiasis COMPARISON STUDY: CT scan dated 03/29/2020 FINDINGS: The liver is somewhat heterogeneous in echotexture without evidence of focal mass. The appendix appears normal as visualized. Multiple gallstones are visualized. There is no gallbladder wall thickening and no evidence of perich olecystic fluid. The technologist reports a negative sonographic [place] sign. There is no ductal dilatation. The common bile duct measures 6 mm. There is no right-sided hydronephrosis. IMPRESSION: 1. Cholelithiasis. No evidence of ductal dilatation 2. Heterogeneous hepatic echotexture without evidence of focal mass ACT 112: Negative or not required by law. Electronically signed by: Boom Tuttle M.D. 03/30/2020 8:12 AM
[2020-03-30] MEDS: hydroCHLOROthiazide 25 MG TAB PO SCH (08:32)
[2020-03-30] MEDS: ROSUVASTATIN CALCIUM 5 MG TAB PO SCH (08:33)
[2020-03-30] MEDS: ENALAPRIL MALEATE 10 MG TAB PO SCH (08:33)
--- NOTE | 2020-03-30 09:32 | Pharmacy Report ---
Pharmacy Glycemic Short Note 2 - Date of Service March 30, 2020 - Glycemic Short BSG Results (Last 24 hours): 03/29/20 03/29/20 03/30/20 18:46 18:51 06:21 Glucose 160 H POC Glucose 155 H POC Glucose (other) 162 H OUTPATIENT ANTIDIABETIC REGIMEN: * Basaglar 90 units QAM, Metformin 1000 mg BIDM, Victoza 1.8 sq daily ASSESSMENT: * Ms. Franklin has type II diabetes admitted to observation with abdominal pain * Currently NPO, reduced lantus dose given this morning- will dose BID for now and then transition back to once daily dosing * Novolog parameters dosed at weight based stress of 3 (although will not be getting carb coverage d/t NPO status) for now * Patient to [place] this afternoon for [place], will set lantus scale for this evening up to 45 units (total daily dose would be ~44-12% reduction from home dose) PLAN FOR INPATIENT GLYCEMIC CONTROL: * Hold outpatient oral diabetes medications * Basal insulin * Lantus 35 units SQ this AM, Scale for PM 25-45 units * Bolus insulin * NovoLog per scale ACHS or Q6hrs while NPO * Goal Range: Low 110 mg/dL - High 140 mg/dL * Correction Factor: 15 mg/dL/unit * Nutritional / Prandial insulin per carb ratio of 1 unit per 5 grams CHO consumed PLAN FOR DISCHARGE: * TBD
--- NOTE | 2020-03-30 10:40 | Hospitalist Progress Note ---
Date of Service March 30, 2020 Assessment & Plan (1) Intractable abdominal pain: Effie Franklin is a 54 y/o is a with past medical hx of DM2-insulin dependent, HLD, HTN, Abdominal Pain who presented to [facility] ED for Fall. But was admitted for intractable abdominal pain. She notes coming here for a fall, but that she has been dealing with RUQ pain that has increased in severity over the past 3 weeks. She has turned down outpatient workup in the past. It is worsened with lettuce and spicy foods over the past 3 weeks, which is odd because lettuce wouldn't cause contraction of the gallbladder...unless the dressing was fatty. She has been afebrile, no elevated WBC or signs of infection, Lipase WNL, ALT/AST WNL. She denies her pain is related to the fall. Imaging workup did show gallstones, and common bile duct upper limit of normal 6mm. Per Radiology HIDA was positive, will order Surgery cx. -HIDA positive, official read pending -Surg CX appreciated -requested rapid COVID pre-op test -continue NPO pending surg cx -IVF @100 CC -continue analgesia with IV Tylenol and 0.5 mg dilaudid q3h -supportive care Dispo: Obs, med/surg Code: Full FENGI: NPO, NSS @ 100ml/hr DVT ppx: SCDs (2) Fall: Mechanical, no acute fractures. Suspect will be sore from fall in upcoming days. -analgesia as above, discussed with pt importance to reduce opiate use as much as possible to prevent constipation and other adverse events (3) Cholelithiasis: as above (4) Essential hypertension: c/w HCTZ 25mg PO daily Ramipril 10mg non formulary (5) Dyslipidemia: Rosuvastatin 5mg PO daily (6) Controlled type 2 diabetes mellitus, with long-term current use of insulin: pharmacy consult placed, insulin dependent, currently NPO (7) Morbid obesity: Recommend lifestyle modifications. pt is precontemplation Admission and Anticipated Discharge Date Admission Date: March 30, 2020 Supervising Physician Co-Signing Physician Notes I personally examined the patient and verified all lambert points of history and exam, discussed case, and agree with decision making with Dr Brown. feeling sore but reaosnalbe post op. pain under control vitals noted nad heent nc at mmm breathing unlabored no accessory muscles good effort skin no rashes no pallor or icterus gangrenous cholecystitis - now post op. continue zosyn. DM - insulin management DVT proph - heparin SQ Subjective Pt lying in bed this morning endorsing ruq pain. Pt reports sleeping well overnight s/p pain meds. SHe has been voiding and stooling without issue. PT has been NPO overnight for HIDA to be preformed today PT requesting surgical consult. Pt reports pain is well controlled with pain meds. Acute concerns related to RUQ pain, questions related to surgical consult. Review of Systems Review of Systems: All systems reviewed & are unremarkable except as noted in HPI & below Physical Exam Physical Exam: General:NAD Eyes:EOMI, NL to visual inspection Neck:normal to visual inspection trachea midline Chest:See attestation Cardiac:see attestation GI:Tender throughout all quadrants worst in the RUQ, no gaurding, neg murphys MSK:moves all extremities Neuro:alert and oriented Psych:calm, cooperative Results & Data Results & Data ([facility]) Vital Signs (Past 12 Hours) Vital Signs Temp Pulse Resp BP Pulse Ox 03/30/20 07:25 37.1 C 85 18 157/81 H 97 03/30/20 01:15 36.6 C 75 16 179/91 H 99 03/30/20 00:53 76 20 169/89 H 100 03/29/20 23:31 80 20 169/118 H 98 03/29/20 22:46 65 20 179/106 H 99 Laboratory Results 03/30/20 03/30/20 03/30/20 Range/Units 06:21 05:21 05:21 WBC (4.8-10.8) K/uL RBC (4.2-5.4) M/uL Hgb (12.0-16.0) g/dL POC Hgb (12.0-16.0) g/dl Hct (37-47) % POC Hct (37-47) % MCV (80-100) fL MCH (25-34) pg MCHC (32-36) g/dL RDW Std Deviation (36.4-46.3) fL RDW Coeff of Jim (11.5-14.5) % Plt Count (130-400) K/uL MPV (7.4-10.4) fL Immature Gran % (Auto) % Neut % (Auto) % Lymph % (Auto) % Wallace % (Auto) % Eos % (Auto) % Baso % (Auto) % Neut # (Auto) (1.4-6.5) K/uL Lymph # (Auto) (1.2-3.4) K/uL Wallace # (Auto) (0.11-0.59) K/uL Eos # (Auto) (0-0.5) K/uL Baso # (Auto) (0-0.2) K/uL Immature Gran # (Auto) (0.00-0.02) K/uL POC Sodium (135-144) mmol/L Sodium (136-145) mmol/L POC Potassium (3.3-5.0) mmol/L Potassium (3.5-5.1) mmol/L POC Chloride (101-112) mmol/L Chloride (98-107) mmol/L Carbon Dioxide (21-32) mmol/L POC Total CO2 (24-31) mmol/L Anion Gap (3-11) POC Anion Gap (16-25) mmol/L POC BUN (7-18) mg/dl BUN (7-18) mg/dl Creatinine (0.6-1.2) mg/dl POC Creatinine (0.6-1.3) mg/dl Est Cr Clr Drug Dosing ml/min Est GFR ( Amer) Est GFR (Non-Af Amer) BUN/Creatinine Ratio (10-20) Glucose (70-99) mg/dl POC Glucose 155 H (70-99) mg/dl POC Glucose (other) (70-99) mg/dl Estimat Average Glucose 137 mg/dl Hemoglobin A1c 6.4 H (4.5-5.6) % Calcium (8.5-10.1) mg/dl POC Ioniz Calcium Gabriella (1.12-1.32) mmol/l Total Bilirubin (0.2-1) mg/dl AST (15-37) U/L ALT (12-78) U/L Alkaline Phosphatase (45-117) U/L Total Protein (6.4-8.2) gm/dl Albumin (3.4-5.0) gm/dl Globulin (2.5-4.0) gm/dl Albumin/Globulin Ratio (0.9-2) Amylase 64 (25-115) U/L Lipase (73-393) U/L Urine Color Urine Appearance (Clear) Urine pH (4.5-7.5) Ur Specific [place] (1.000-1.030) Urine Protein (Negative) Urine Glucose (UA) (Negative) Urine Ketones (Negative) Urine Blood (Negative) Urine Nitrite (Negative) Urine Bilirubin (Negative) Urine Urobilinogen (Negative) Ur Leukocyte Esterase (Negative) 03/29/20 03/29/20 03/29/20 Range/Units 19:05 18:51 18:46 WBC 8.68 (4.8-10.8) K/uL RBC 5.39 (4.2-5.4) M/uL Hgb 14.3 (12.0-16.0) g/dL POC Hgb 15.0 (12.0-16.0) g/dl Hct 43.5 (37-47) % POC Hct 44 (37-47) % MCV 80.7 (80-100) fL MCH 26.5 (25-34) pg MCHC 32.9 (32-36) g/dL RDW Std Deviation 44.4 (36.4-46.3) fL RDW Coeff of Jim 15.1 H (11.5-14.5) % Plt Count 179 (130-400) K/uL MPV 10.5 H (7.4-10.4) fL Immature Gran % (Auto) 0.2 % Neut % (Auto) 80.1 % Lymph % (Auto) 13.1 % Wallace % (Auto) 6.6 % Eos % (Auto) 0.0 % Baso % (Auto) 0.0 % Neut # (Auto) 6.95 H (1.4-6.5) K/uL Lymph # (Auto) 1.14 L (1.2-3.4) K/uL Wallace # (Auto) 0.57 (0.11-0.59) K/uL Eos # (Auto) 0.00 (0-0.5) K/uL Baso # (Auto) 0.00 (0-0.2) K/uL Immature Gran # (Auto) 0.02 (0.00-0.02) K/uL POC Sodium 138 (135-144) mmol/L Sodium (136-145) mmol/L POC Potassium 3.7 (3.3-5.0) mmol/L Potassium (3.5-5.1) mmol/L POC Chloride 99 L (101-112) mmol/L Chloride (98-107) mmol/L Carbon Dioxide (21-32) mmol/L POC Total CO2 27 (24-31) mmol/L Anion Gap (3-11) POC Anion Gap 16.0 (16-25) mmol/L POC BUN 28 H (7-18) mg/dl BUN (7-18) mg/dl Creatinine (0.6-1.2) mg/dl POC Creatinine 0.9 (0.6-1.3) mg/dl Est Cr Clr Drug Dosing ml/min Est GFR ( Amer) Est GFR (Non-Af Amer) BUN/Creatinine Ratio (10-20) Glucose (70-99) mg/dl POC Glucose (70-99) mg/dl POC Glucose (other) 162 H (70-99) mg/dl Estimat Average Glucose mg/dl Hemoglobin A1c (4.5-5.6) % Calcium (8.5-10.1) mg/dl POC Ioniz Calcium Gabriella 1.19 (1.12-1.32) mmol/l Total Bilirubin (0.2-1) mg/dl AST (15-37) U/L ALT (12-78) U/L Alkaline Phosphatase (45-117) U/L Total Protein (6.4-8.2) gm/dl Albumin (3.4-5.0) gm/dl Globulin (2.5-4.0) gm/dl Albumin/Globulin Ratio (0.9-2) Amylase (25-115) U/L Lipase (73-393) U/L Urine Color Yellow Urine Appearance Clear (Clear) Urine pH 5.0 (4.5-7.5) Ur Specific [place] 1.022 (1.000-1.030) Urine Protein Negative (Negative) Urine Glucose (UA) Negative (Negative) Urine Ketones Negative (Negative) Urine Blood Negative (Negative) Urine Nitrite Negative (Negative) Urine Bilirubin Negative (Negative) Urine Urobilinogen Negative (Negative) Ur Leukocyte Esterase Negative (Negative) 03/29/20 Range/Units 18:46 WBC (4.8-10.8) K/uL RBC (4.2-5.4) M/uL Hgb (12.0-16.0) g/dL POC Hgb (12.0-16.0) g/dl Hct (37-47) % POC Hct (37-47) % MCV (80-100) fL MCH (25-34) pg MCHC (32-36) g/dL RDW Std Deviation (36.4-46.3) fL RDW Coeff of Jim (11.5-14.5) % Plt Count (130-400) K/uL MPV (7.4-10.4) fL Immature Gran % (Auto) % Neut % (Auto) % Lymph % (Auto) % Wallace % (Auto) % Eos % (Auto) % Baso % (Auto) % Neut # (Auto) (1.4-6.5) K/uL Lymph # (Auto) (1.2-3.4) K/uL Wallace # (Auto) (0.11-0.59) K/uL Eos # (Auto) (0-0.5) K/uL Baso # (Auto) (0-0.2) K/uL Immature Gran # (Auto) (0.00-0.02) K/uL POC Sodium (135-144) mmol/L Sodium 138 (136-145) mmol/L POC Potassium (3.3-5.0) mmol/L Potassium 3.6 (3.5-5.1) mmol/L POC Chloride (101-112) mmol/L Chloride 101 (98-107) mmol/L Carbon Dioxide 28 (21-32) mmol/L POC Total CO2 (24-31) mmol/L Anion Gap 9.0 (3-11) POC Anion Gap (16-25) mmol/L POC BUN (7-18) mg/dl BUN 28 H (7-18) mg/dl Creatinine 0.99 (0.6-1.2) mg/dl POC Creatinine (0.6-1.3) mg/dl Est Cr Clr Drug Dosing 79.2 ml/min Est GFR ( Amer) 74.9 Est GFR (Non-Af Amer) 64.6 BUN/Creatinine Ratio 28.3 H (10-20) Glucose 160 H (70-99) mg/dl POC Glucose (70-99) mg/dl POC Glucose (other) (70-99) mg/dl Estimat Average Glucose mg/dl Hemoglobin A1c (4.5-5.6) % Calcium 9.8 (8.5-10.1) mg/dl POC Ioniz Calcium Gabriella (1.12-1.32) mmol/l Total Bilirubin 0.6 (0.2-1) mg/dl AST 20 (15-37) U/L ALT 26 (12-78) U/L Alkaline Phosphatase 108 (45-117) U/L Total Protein 8.0 (6.4-8.2) gm/dl Albumin 4.2 (3.4-5.0) gm/dl Globulin 3.8 (2.5-4.0) gm/dl Albumin/Globulin Ratio 1.1 (0.9-2) Amylase (25-115) U/L Lipase 350 (73-393) U/L Urine Color Urine Appearance (Clear) Urine pH (4.5-7.5) Ur Specific [place] (1.000-1.030) Urine Protein (Negative) Urine Glucose (UA) (Negative) Urine Ketones (Negative) Urine Blood (Negative) Urine Nitrite (Negative) Urine Bilirubin (Negative) Urine Urobilinogen (Negative) Ur Leukocyte Esterase (Negative) Medications Administered Current Inpatient Medications Acetaminophen (Acetaminophen 325 Mg Tab) 650 mg PO Q4H PRN PRN Reason: Pain or Fever Stop: 04/29/20 01:14 Dextrose (Dextrose 50% 50 Ml Syringe) 25 - 50 ml IV UD PRN; Protocol PRN Reason: Hypoglycemia Protocol Stop: 04/29/20 01:14 Enalapril Maleate (Enalapril Maleate 10 Mg Tab) 40 mg PO DAILY PENDING SALE TO [facility] Stop: 04/29/20 08:59 Last Admin: 03/30/20 08:33 Dose: 10 mg Documented by: Glucagon (Glucagon For Inj 1 Mg Vial) 1 mg SQ UD PRN; Protocol PRN Reason: Hypoglycemia Protocol Stop: 04/29/20 01:14 Glucose (Glucose 10 Tabs/Tube) 4 - 8 tabs PO UD PRN; Protocol PRN Reason: Hypoglycemia Protocol Stop: 04/29/20 01:14 Glucose (Glucose 40% Gel 15 Gm Tube) 15 - 30 gm PO UD PRN; Protocol PRN Reason: Hypoglycemia Protocol Stop: 04/29/20 01:14 Hydrochlorothiazide (Hydrochlorothiazide 25 Mg Tab) 25 mg PO DAILY LUZ Stop: 04/29/20 08:59 Last Admin: 03/30/20 08:32 Dose: 25 mg Documented by: Hydromorphone HCl (Hydromorphone Inj 0.5 Mg/0.5 Ml Syr) 0.5 mg IV Q3H PRN PRN Reason: SEVERE Pain (Scale 7,8,9,10) Stop: 04/13/20 01:14 Last Admin: 03/30/20 02:10 Dose: 0.5 mg Documented by: Acetaminophen (Ofirmev) 1,000 mg in 100 mls @ 400 mls/hr IV Q8H PRN PRN Reason: MILD Pain (Scale 1,2,3) Stop: 04/02/20 01:14 Last Infusion: 03/30/20 02:12 Dose: Infused Documented by: Sodium Chloride (Nss 1000ml) 1,000 mls @ 100 mls/hr IV .Q10H LUZ Stop: 04/29/20 09:14 Last Admin: 03/30/20 09:14 Dose: 100 mls/hr Documented by: Insulin Aspart (Insulin Aspart 100 Units/Ml 3 Ml Pen) 0 units SC Q6 LUZ Stop: 04/29/20 05:59 Last Admin: 03/30/20 06:23 Dose: 1 units Documented by: Insulin Glargine (Insulin Glargine Solostar 100 Units/Ml 3 Ml Pen) 35 units SC BID PENDING SALE TO [facility] Stop: 04/29/20 05:59 Last Admin: 03/30/20 06:23 Dose: 35 units Documented by: Miscellaneous (Carbohydrates For Hypoglycemia ) 15 - 30 gm PO UD PRN PRN Reason: Hypoglycemia Protocol Stop: 04/29/20 01:14 Miscellaneous Information (Pharmacy Glycemic Mgmt Consult) 1 ea N/A UD PRN; Protocol PRN Reason: Consult Stop: 04/29/20 04:51 Ondansetron HCl (Ondansetron Inj 2 Mg/Ml 2 Ml Vial) 4 mg IV Q6H PRN PRN Reason: Nausea Stop: 04/29/20 01:14 Last Admin: 03/30/20 08:36 Dose: 4 mg Documented by: Oxycodone HCl (Oxycodone Hcl Ir 5 Mg Tab (Immediate Release)) 5 mg PO Q4H PRN PRN Reason: MODERATE Pain (Scale 4,5,6) Stop: 04/13/20 01:14 Polyethylene Glycol (Polyethylene (Miralax) 17 Gm Pack) 17 gm PO DAILY PRN PRN Reason: Constipation Stop: 04/29/20 01:14 Rosuvastatin Calcium (Rosuvastatin Calcium 5 Mg Tab) 5 mg PO DAILY LUZ Stop: 04/29/20 08:59 Last Admin: 03/30/20 08:33 Dose: 5 mg Documented by: Resident Activity Tracking Resident Involvement: Resident Care Provided Care Provided: Adult Hospital Medicine (1) Fall Encounter type: initial encounter Qualified Code(s): W19.XXXA - Unspecified fall, initial encounter (2) Cholelithiasis Biliary obstruction: without biliary obstruction Cholecystitis presence: without cholecystitis Cholelithiasis location: gallbladder Qualified Code(s): K80.20 - Calculus of gallbladder without cholecystitis without obstruction
[2020-03-30] MEDS ORDERED: SINCALIDE 2.3 MCG in 0.9 % SODIUM CHLORIDE 100 ML IV SCH (11:30)
[2020-03-30] MEDS ORDERED: cefOXitin 2,000 MG in DEXTROSE 5% 50 ML IV STA (11:51)
--- NOTE | 2020-03-30 12:00 | Nuclear Medicine Report ---
NUCLEAR MEDICINE HEPATOBILIARY SCAN CLINICAL HISTORY: Right upper quadrant pain. COMPARISON: CT of the abdomen and pelvis and ultrasound March 29, 2020. TECHNIQUE: 5.4 mCi of technetium 99m Choletec IV was injected at 10:30 AM on March 30, 2020. Immed iately following injection, imaging of the abdomen was carried out for 60 minutes in the anterior pro jection. FINDINGS: Hepatic uptake of radiotracer is prompt and homogeneous. Activity is identified within the common bile duct at 10 minutes. Small bowel activity was noted at 15 minutes. No gallbladder activit y was identified at 60 minutes. Given the findings on the previous imaging studies, picture and lack of gallbladder activity at 60 minutes, the surgeon decided to not proceed with further imaging. IMPRESSION: Nonvisualization of the gallbladder is 60 minutes. This favors acute cholecystitis given the findings on prior CT. ACT 112: Negative or not required by law. Electronically signed by: Jeremy Weiss M.D. 03/30/2020 11:59 AM
[2020-03-30] MEDS ORDERED: LIDOCAINE HCL 2% 2 ML VIAL/AMP(20MG/ML) INFIL ONE (12:14)
[2020-03-30] MEDS ORDERED: ROCURONIUM BROMIDE 10 MG/ML 5 ML VIAL IV ONE (12:14)
[2020-03-30] MEDS ORDERED: DEXAMETHASONE SOD INJ 4 MG/ML VIAL ONE (12:14)
[2020-03-30] MEDS ORDERED: MIDAZOLAM HCL 1 MG/ML 2ML VIAL ONE (12:14)
[2020-03-30] MEDS ORDERED: fentaNYL citrate 100 MCG/2 ML VIAL ONE ×3 (12:14→15:55)
[2020-03-30] MEDS ORDERED: ONDANSETRON INJ 2 MG/ML 2 ML VIAL ONE (12:14)
[2020-03-30] MEDS ORDERED: LARYING-O-JET KIT (LTA) ONE (12:14)
[2020-03-30] MEDS ORDERED: PROPOFOL IV EMULSION 10 MG/ML 20 ML VIAL IV ONE (12:14)
--- NOTE | 2020-03-30 12:36 | Anesthesiology Consultation ---
Date of Service March 30, 2020 Assessment & Plan (1) Encounter for pre-operative examination: Chart Review Chart Review: Acceptable Risk for Surgery and Patient NOT seen in Pre Admission Testing Consults Requested none History Surgery Operation Date: 03/30/20 10:20 Proposed Procedures p Laparoscopic Cholecystectomy - Mykel Ellis MD, FACS Height/Weight Height: 5 ft 3 in Weight: 114.1 kg Allergies Allergy/AdvReac Type Severity Reaction Status Date / Time latex Allergy Rash Unverified 03/29/20 21:39 Medications Home Medications Medication Instructions Recorded Confirmed Last Taken cholecalciferol (vitamin D3) 25 1,000 units PO DAILY cap 05/29/19 03/29/20 Unknown mcg (1,000 unit) capsule cyanocobalamin (vitamin B-12) 1,000 mcg PO DAILY tab 05/29/19 03/29/20 Unknown 1,000 mcg tablet,extended release ramipril 10 mg capsule 10 mg PO DAILY #90 cap 09/23/19 03/29/20 Unknown hydrochlorothiazide 25 mg tablet 25 mg PO DAILY #90 tab 10/22/19 03/29/20 Unknown rosuvastatin 5 mg tablet 5 mg PO DAILY #90 tab 11/20/19 03/29/20 Unknown Basaglar KwikPen U-100 Insulin 100 90 units SQ DAILY 90 Days #6 box NS 01/24/20 03/29/20 Unknown unit/mL (3 mL) subcutaneous liraglutide 0.6 mg/0.1 mL (18 mg/3 1.8 mg SUBCUT DAILY #27 ml 01/24/20 03/29/20 Unknown mL) subcutaneous pen injector metformin 1,000 mg tablet 1,000 mg PO BID #180 tab 01/24/20 03/29/20 Unknown Active Medications Generic Name Dose Route Start Last Admin Trade Name Freq PRN Reason Stop Dose Admin Enalapril Maleate 40 mg 03/30/20 09:00 03/30/20 08:33 Enalapril Maleate 10 Mg Tab PO 04/29/20 08:59 10 mg DAILY LUZ Administration Hydrochlorothiazide 25 mg 03/30/20 09:00 03/30/20 08:32 Hydrochlorothiazide 25 Mg Tab PO 04/29/20 08:59 25 mg DAILY LUZ Administration Hydromorphone HCl 0.5 mg 03/30/20 01:15 03/30/20 02:10 Hydromorphone Inj 0.5 Mg/0.5 Ml Syr IV 04/13/20 01:14 0.5 mg Q3H PRN Administration SEVERE Pain (Scale 7,8,9,10) Acetaminophen 1,000 mg in 100 mls @ 400 mls/hr 03/30/20 01:15 03/30/20 12:14 Ofirmev IV 04/02/20 01:14 400 mls/hr Q8H PRN Administration MILD Pain (Scale 1,2,3) Sodium Chloride 1,000 mls @ 100 mls/hr 03/30/20 09:15 03/30/20 09:14 Nss 1000ml IV 04/29/20 09:14 100 mls/hr .Q10H LUZ Administration Insulin Aspart 0 units 03/30/20 06:00 03/30/20 06:23 Insulin Aspart 100 Units/Ml 3 Ml Pen SC 04/29/20 05:59 1 units Q6 LUZ Administration Insulin Glargine 35 units 03/30/20 06:00 03/30/20 06:23 Insulin Glargine Solostar 100 Units/Ml 3 Ml Pen SC 04/29/20 05:59 35 units BID LUZ Administration Ondansetron HCl 4 mg 03/30/20 01:15 03/30/20 08:36 Ondansetron Inj 2 Mg/Ml 2 Ml Vial IV 04/29/20 01:14 4 mg Q6H PRN Administration Nausea Rosuvastatin Calcium 5 mg 03/30/20 09:00 03/30/20 08:33 Rosuvastatin Calcium 5 Mg Tab PO 04/29/20 08:59 5 mg DAILY LUZ Administration NPO Date Last Intake of Fluids: 03/30/20 Time Last Intake of Fluids: 01:15 Date Last Intake of Solids: 03/30/20 Time Last Intake of Solids: 01:15 Last Intake of Solids Comment: Patient arrived to the floor from the ED at 0115 Past Medical History Medical History Controlled type 2 diabetes mellitus, with long-term current use of insulin Dyslipidemia Essential hypertension Left knee DJD Obesity Proteinuria due to type 2 diabetes mellitus Shingles Past Family History Family History Aunt Colorectal cancer Father H/O coronary artery bypass surgery age 70 Cardiac disorder Diabetes Gallbladder disease Hypertension Sister Gallbladder disease Mother Hypothyroidism Past Surgical History Surgical History History of incision and drainage abdominal wall abscess--panniculitis History of tonsillectomy Social History Smoking Status: Never smoker Hx Alcohol Use: No Hx Substance Use: No Physical Exam Vital Signs Last Vital Signs Temp 37.1 C 03/30/20 07:25 Pulse 85 03/30/20 07:25 Resp 18 03/30/20 07:25 BP 157/81 H 03/30/20 07:25 Pulse Ox 97 03/30/20 07:25 Testing Laboratory Results 03/29/20 18:46 03/29/20 18:46 Hemoglobin A1c 6.4 % (4.5-5.6) H 03/30/20 05:21 Urine Color Yellow 03/29/20 19:05 Urine Appearance Clear (Clear) 03/29/20 19:05 Urine pH 5.0 (4.5-7.5) 03/29/20 19:05 Ur Specific [place] 1.022 (1.000-1.030) 03/29/20 19:05 Urine Protein Negative (Negative) 03/29/20 19:05 Urine Glucose (UA) Negative (Negative) 03/29/20 19:05 Urine Ketones Negative (Negative) 03/29/20 19:05 Urine Nitrite Negative (Negative) 03/29/20 19:05 Ur Leukocyte Esterase Negative (Negative) 03/29/20 19:05 03/30/20 03/30/20 12:26 06:21 POC Glucose 140 H 155 H Electrocardiogram Date: 03/29/20 Findings: + NSR @ (66) Chest X-Ray Date: 03/29/20 Findings: + NAD
--- NOTE | 2020-03-30 13:33 | History & Physical Report ---
Date of Service March 30, 2020 Assessment & Plan (1) Acute cholecystitis: Patient has a very distended gallbladder with stones and possible sludge I believe her pain is from obstructive symptoms of the gallbladder especially with early nonvisualization of the gallbladder She is for laparoscopic cholecystectomy She does understand and does wish to proceed Admission and Anticipated Discharge Date Admission Date: March 30, 2020 History of Present Illness Primary Care Provider: Stan Fernández MD 54-year-old female presenting to the hospital after a fall and persistent abdominal pain in the right upper quadrant Found on ultrasound with a very distended gallbladder with gallstones and probable sludge Her CAT scan showed a very distended gallbladder with mild fluid consistent with possible early acute cholecystitis She underwent HIDA scan which initially did not show any visualization of the gallbladder and it was stopped Allergies Allergy/AdvReac Type Severity Reaction Status Date / Time latex Allergy Rash Unverified 03/29/20 21:39 Home Medications Home Medications Medication Instructions Recorded Confirmed Type cholecalciferol (vitamin D3) 25 1,000 units PO DAILY cap 05/29/19 03/29/20 History mcg (1,000 unit) capsule cyanocobalamin (vitamin B-12) 1,000 mcg PO DAILY tab 05/29/19 03/29/20 History 1,000 mcg tablet,extended release ramipril 10 mg capsule 10 mg PO DAILY #90 cap 09/23/19 03/29/20 Rx hydrochlorothiazide 25 mg tablet 25 mg PO DAILY #90 tab 10/22/19 03/29/20 Rx rosuvastatin 5 mg tablet 5 mg PO DAILY #90 tab 11/20/19 03/29/20 Rx Basaglhung Joseph U-100 Insulin 100 90 units SQ DAILY 90 Days #6 box NS 01/24/20 03/29/20 Rx unit/mL (3 mL) subcutaneous liraglutide 0.6 mg/0.1 mL (18 mg/3 1.8 mg SUBCUT DAILY #27 ml 01/24/20 03/29/20 Rx mL) subcutaneous pen injector metformin 1,000 mg tablet 1,000 mg PO BID #180 tab 01/24/20 03/29/20 Rx Past Med/Surg History Medical History Controlled type 2 diabetes mellitus, with long-term current use of insulin Dyslipidemia Essential hypertension Left knee DJD Obesity Proteinuria due to type 2 diabetes mellitus Shingles Surgical History History of incision and drainage abdominal wall abscess--panniculitis History of tonsillectomy Family History Aunt Colorectal cancer Father H/O coronary artery bypass surgery age 70 Cardiac disorder Diabetes Gallbladder disease Hypertension Sister Gallbladder disease Mother Hypothyroidism Social History Smoking Status: Never smoker Second Hand Exposure: No; Hx Alcohol Use: No Hx Substance Use: No Preferred Language: Bol[place]ian Communication Ability: Effective Visual Impairment: No Limitations Hearing Ability: Normal Beliefs That Will Affect Care: None marital status: Single Current Living Situation: Parent, Family and Other Current Living Situation Comment: patients father and daughter live with her current occupational status: employed 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 Other Information That Helps Us Care for You: No Feels Safe at Home: Yes Safety Concerns: Feels Safe At This Time Childhood Exposure to Second-Hand Smoke: No Dental Care, Regularly: No Physical Activity Frequency: Daily Seatbelt Use: always Sunscreen Use: Yes Review of Systems All systems reviewed & are unremarkable except as noted in HPI & below Physical Exam Constitutional: well developed and well nourished; no acute distress Eyes: + anicteric sclerae Respiratory: normal respiratory effort; no respiratory distress Cardiovascular: Rate/Rhythm: regular rate Gastrointestinal (Abdomen): Percussion/Palpation: abdomen soft Musculoskeletal: Gait: normal gait Skin: no rashes, warm and dry Neurologic: awake Psychiatric: Orientation: alert Results & Data ([facility]) Vital Signs (Past 12 Hours) Vital Signs Temp Pulse Resp BP Pulse Ox 03/30/20 12:59 37.2 C 90 18 155/86 H 98 03/30/20 07:25 37.1 C 85 18 157/81 H 97 I did review her ultrasound and CAT scan Code Status & VTE Plan VTE Prophylaxis Plan VTE Prophylaxis will be ordered: Yes
[2020-03-30] MEDS ORDERED: BUPIVACAINE 0.5 % 5 MG/1 ML MPF 30ML VIAL ONE (13:51)
[2020-03-30] MEDS ORDERED: GLYCOPYRROLATE 0.2 MG/ML VIAL ONE (14:47)
[2020-03-30] MEDS ORDERED: NEOSTIGMINE METHYLSULFATE 5 MG/5 ML SYR ONE (14:47)
--- NOTE | 2020-03-30 15:11 | Post Operative Brief Note ---
PG Immediate Post Op with CF Date of Surgery March 30, 2020 Pre & Post Diagnosis Operation Date: 03/30/20 10:20 Pre-Op Diagnosis: Acute Cholecystitis Post-Op Diagnosis: Gangrenous Cholecystitis I identified the patient and participated in the time-out.: Yes Procedure Operation Date: 03/30/20 10:20 Actual Procedures p Laparoscopic Cholecystectomy - Mykel Ellis MD, FACS Surgeon Mykel Ellis MD, FACS Pricing Supervisor Germain Mckeon Estimated Blood Loss 20 Findings Consistent with Post-Op Diagnosis Specimens Specimen Description: A. Gallbladder and Contents Drains [place] Drain (15fr)
[2020-03-30] MEDS ORDERED: ACETAMINOPHEN 1,000 MG/100 ML VIAL IV ONE (15:14)
[2020-03-30] MEDS ORDERED: PIPERACILLIN/TAZOBACTAM 3.375 GM in DEXTROSE 5% 100 ML IV SCH (15:15)
[2020-03-30] MEDS ORDERED: FLOSEAL HEMOSTATIC MATRIX 10ML TOP ONE (15:18)
[2020-03-30] MEDS ORDERED: PIPERACILL/TAZOBAC CONSULT ACTIVE PRN (15:30)
[2020-03-30] MEDS ORDERED: SUGAMMADEX SODIUM 200 MG/2 ML VIAL IV ONE (15:32)
[2020-03-30] MEDS ORDERED: PIPERACILLIN/TAZOBACTAM 4.5 GM in DEXTROSE 5% 100 ML IV ONE (15:35)
[2020-03-30] MEDS ORDERED: ONDANSETRON INJ 2 MG/ML 2 ML VIAL IV PRN (15:55)
[2020-03-30] MEDS ORDERED: ePHEDrine sulfate 50 MG/ML AMP IV PRN (15:55)
[2020-03-30] MEDS ORDERED: ATROPINE SULFATE 0.1 MG/ML 10ML SYR IV PRN (15:55)
[2020-03-30] MEDS ORDERED: PROMETHAZINE HCL 6.25 MG in SODIUM CHLORIDE 0.9% 50 ML IV PRN (15:55)
[2020-03-30] MEDS ORDERED: PROMETHAZINE HCL 6.25 MG in SODIUM CHLORIDE 0.9% 50 ML IV STA (15:56)
[2020-03-30] MEDS: fentaNYL citrate 100 MCG/2 ML VIAL IV PRN ×4 (16:01→16:25)
--- NOTE | 2020-03-30 16:02 | Operative Report (OR) ---
DATE OF OPERATION: 03/30/2020 NAME OF OPERATION: Laparoscopic cholecystectomy with drainage. PREOPERATIVE DIAGNOSIS: Acute cholecystitis. POSTOPERATIVE DIAGNOSES: Acute cholecystitis with acute necrotizing cholecystitis, gangrenous gallbladder. STAFF SURGEON: Mykel Ellis MD. VALIDATION ENGINEER: Jessica Mckeon PA-C. ANESTHESIA: General. DESCRIPTION OF PROCEDURE: The patient was brought in the operating room and placed on the operating table in supine position. Her abdomen was prepped and draped in usual fashion. Pneumatic stockings, orogastric tube were placed. Incision was made above the umbilicus, carrying dissection down through significant adipose tissue to the fascia, placing a Veress needle producing pneumoperitoneum. An 11 mm port placed at this level. Under visualization, three 5 mm ports were placed, 1 cephalad and 2 laterally. Gallbladder was very inflamed. There were acute adhesions to the gallbladder as well as some chronic adhesions. There were necrotic areas of the gallbladder consistent with necrotizing cholecystitis. I did aspirate the bile from the gallbladder to decompress it some. We did have some bile spillage also. With some difficulty, the gallbladder was retracted. I did have to reposition my upper mid 5 mm port. At this point, we were able to identify the cystic duct and cystic artery. These were clipped and transected. It was with some difficulty because of the edema and inflammation. There was severe edema in the wall of the gallbladder. It was dissected away from the liver bed with some mild bleeding. I did place some FloSeal. After appropriate hemostasis and irrigation, a #15 round Efrain-Flores drain was placed into the subhepatic space, secured to the skin using 3-0 nylon suture. Prior to this, the gallbladder was placed into an Endobag. Using a 5 mm scope, the Endobag was removed through the umbilical site. I did have to enlarge the fascial defect and skin to remove the gallbladder as it was very large. The fascia at the umbilical area was closed using interrupted 0 PDS suture. Skin reapproximated there using 5-0 Prolene suture. Other sites using subcuticular 4-0 Monocryl with Dermabond. Dressings applied and patient was transferred to recovery room in stable condition. My events assistant helped with prepping, draping, removal of the gallbladder and closure of the wounds. I attest to the content of the Intraoperative Record and any orders documented therein. Any exception s are noted below.
[2020-03-30] MEDS ORDERED: NovoLIN-R INSULIN PER UNIT CHARGE ONE ×2 (16:07→16:40)
[2020-03-30] MEDS ORDERED: INSULIN HUMAN REGULAR PER UNIT 5 UNITS in SYRINGE 0 ML IV STA ×2 (16:11→16:41)
--- NOTE | 2020-03-30 16:59 | Anesthesiology Progress Note ---
Date of Service March 30, 2020 Anesthesia Post Procedure Vital Signs Vital Signs: Temp Pulse Pulse Pulse Resp BP BP 03/30/20 16:55 97.5 F L 79 16 03/30/20 16:45 82 16 03/30/20 16:34 97.2 F L 81 14 03/30/20 16:25 75 14 03/30/20 16:15 83 20 03/30/20 16:05 102 H 21 03/30/20 15:55 83 16 03/30/20 15:45 86 15 03/30/20 15:38 97.0 F L 89 16 03/30/20 12:59 99.0 F 90 18 155/86 H 03/30/20 07:25 98.8 F 85 18 157/81 H 03/30/20 01:15 97.9 F 75 16 179/91 H 03/30/20 00:53 76 20 169/89 H 03/29/20 23:31 80 20 169/118 H 03/29/20 22:46 65 20 179/106 H 03/29/20 21:00 75 18 167/90 H 03/29/20 19:02 68 20 224/93 H 03/29/20 17:27 98.2 F 74 18 193/73 H BP Pulse Ox 03/30/20 16:55 143/88 H 99 03/30/20 16:45 123/86 99 03/30/20 16:34 129/81 98 03/30/20 16:25 134/77 96 03/30/20 16:15 139/77 97 03/30/20 16:05 151/78 H 95 03/30/20 15:55 137/116 H 90 03/30/20 15:45 145/110 H 93 03/30/20 15:38 154/85 H 93 03/30/20 12:59 98 03/30/20 07:25 97 03/30/20 01:15 99 03/30/20 00:53 100 03/29/20 23:31 98 03/29/20 22:46 99 03/29/20 21:00 94 03/29/20 19:02 100 03/29/20 17:27 100 Pain Intensity Abdomen: Pain Intensity: 3 Transfer of Care Handoff Completed per policy Notes Mental Status: alert / awake / arousable and participated in evaluation Patient Amnestic to Procedure: Yes Nausea / Vomiting: adequately controlled Pain: adequately controlled Airway Patency, RR, SpO2: stable & adequate BP & HR: stable & adequate Hydration State: stable & adequate Anesthetic Complications: no major complications apparent and Pt Satisfied with anesthetic care
[2020-03-30] MEDS ORDERED: HYDROmorphone INJ 0.5 MG/0.5 ML SYR IV PRN (17:50)
[2020-03-30] MEDS ORDERED: IBUPROFEN 600 MG TAB PO PRN (17:50)
[2020-03-30] MEDS: SODIUM CHLORIDE 0.9% 1000ML 1,000 ML IV SCH (18:27)
[2020-03-30] MEDS: OXYCODONE HCL IR 5 MG TAB (IMMEDIATE RELEASE) PO PRN (18:42)
[2020-03-30] MEDS: PIPERACILLIN/TAZOBACTAM 4.5 GM in DEXTROSE 5% 100 ML IV SCH (20:17)
[2020-03-30] MEDS: INSULIN GLARGINE SOLOSTAR 100 UNITS/ML 3 ML PEN SC SCH (21:08)
[2020-03-30] MEDS: HYDROmorphone INJ 1 MG/ML SYRINGE IV PRN (22:24)
[2020-03-31] MEDS: INSULIN ASPART 100 UNITS/ML 3 ML PEN SC SCH ×5 (03:56→21:26)
[2020-03-31] MEDS: ONDANSETRON INJ 2 MG/ML 2 ML VIAL IV PRN (04:02)
[2020-03-31] MEDS: OXYCODONE HCL IR 5 MG TAB (IMMEDIATE RELEASE) PO PRN ×2 (04:02→09:19)
[2020-03-31] MEDS: PIPERACILLIN/TAZOBACTAM 4.5 GM in DEXTROSE 5% 100 ML IV SCH ×3 (04:06→20:49)
[2020-03-31] MEDS: SODIUM CHLORIDE 0.9% 1000ML 1,000 ML IV SCH ×2 (04:07→13:25)
[2020-03-31 06:12] LABS: Hematocrit (blood only) 37.4 % (37-47); Hemoglobin 12.3 g/dL (12.0-16.0); Immature Granulocytes # (auto) 0.04 K/uL (0.00-0.02); Immature Granulocytes % (auto) 0.4 %; Lymphocytes # (auto) 0.86 K/uL (1.2-3.4); Lymphocytes % (auto) 8.1 %; Mean Corpuscular Hemoglobin 26.6 pg (25-34); Mean Corpuscular Hgb Conc 32.9 g/dL (32-36); Mean Platelet Volume 10.7 fL (7.4-10.4); Monocytes % (auto) 8.5 %; Neutrophils # (auto) 8.79 K/uL (1.4-6.5); Platelet Count 150 K/uL (130-400); RDW Coefficient of Variation 15.3 % (11.5-14.5); RDW Standard Deviation 45.2 fL (36.4-46.3); Red Blood Count 4.62 M/uL (4.2-5.4); White Blood Count 10.59 K/uL (4.8-10.8)
--- NOTE | 2020-03-31 06:31 | Electrocardiogram Report ---
Test Reason : Blood Pressure : / mmHG Vent. Rate : 066 BPM Atrial Rate : 066 BPM P-R Int : 132 ms QRS Dur : 090 ms QT Int : 410 ms P-R-T Axes : 050 019 039 degrees QTc Int : 429 ms Normal sinus rhythm Normal ECG When compared with ECG of 17-MAR-2016 12:06, Vent. rate has decreased BY 43 BPM Nonspecific T wave abnormality no longer evident in Anterior leads Confirmed by Abhishek Schroeder ([id number]) on 03/31/2020 6:30:55 AM Referred By: REFERRED SELF Confirmed By:Abhishek Schroeder
[2020-03-31 06:42] LABS: Bilirubin Direct 0.3 mg/dl (0-0.2); Calcium 8.8 mg/dl (8.5-10.1); Creatinine Clr Calc Pharmacy 97.8 ml/min; Est GFR (African American) 96.9; Est GFR (Non-African American) 83.6; Magnesium 1.9 mg/dl (1.8-2.4); Potassium 3.7 mmol/L (3.5-5.1)
[2020-03-31 06:45] LABS: Albumin Globulin Ratio 0.9 (0.9-2); Globulin 3.3 gm/dl (2.5-4.0); Phosphorus 2.7 mg/dl (2.5-4.9); Total Protein 6.3 gm/dl (6.4-8.2)
--- NOTE | 2020-03-31 07:10 | Surgery Progress Note ---
Date of Service March 31, 2020 Assessment & Plan (1) History of laparoscopic cholecystectomy: Patient with gangrenous cholecystitis and some bilious ascites Operation was very difficult secondary to body habitus and severe inflammation I believe she should stay on IV antibiotics for another 48 hours and then be discharged home on oral antibiotics Advance activity and diet Leave drain and likely will discharge home with the drain Admission and Anticipated Discharge Date Admission Date: March 31, 2020 Results & Data ([facility]) Vital Signs (Past 12 Hours) Vital Signs Temp Pulse Resp BP Pulse Ox 03/31/20 03:51 37 C 81 18 145/83 H 97 03/30/20 23:30 36.9 C 84 20 123/77 97 03/30/20 19:34 36.9 C 86 17 124/75 92 PG Care Time/CCT Total # of Minutes Spent Total Time Spent with Patient: Total time spent is greater than 50% in coordination of care (as documented) at patient's floor/unit and/or counseling patient: Coding Level of Care Code None Diagnoses History of laparoscopic cholecystectomy Z90.49
[2020-03-31] MEDS: hydroCHLOROthiazide 25 MG TAB PO SCH (08:02)
[2020-03-31] MEDS: ROSUVASTATIN CALCIUM 5 MG TAB PO SCH (08:02)
[2020-03-31] MEDS: ENALAPRIL MALEATE 10 MG TAB PO SCH (08:02)
[2020-03-31] MEDS: INSULIN GLARGINE SOLOSTAR 100 UNITS/ML 3 ML PEN SC SCH (09:18)
[2020-03-31] MEDS: HEPARIN SOD 5,000 UNIT/0.5 ML VIAL SQ SCH ×2 (09:19→21:19)
[2020-03-31] MEDS ORDERED: Nursing to Pharmacy Communication SCH (13:00)
[2020-03-31] MEDS ORDERED: COUGH DROP (SUGAR FREE) LOZ 24 LOZ/1 BOX BUCCAL STA (13:27)
--- NOTE | 2020-03-31 14:49 | Pharmacy Report ---
Pharmacy Glycemic Short Note 2 - Date of Service March 31, 2020 - Glycemic Short BSG Results (Last 24 hours): 03/30/20 03/30/20 03/30/20 15:58 16:38 16:56 Glucose POC Glucose 226 H 241 H 245 H 03/30/20 03/30/20 03/30/20 17:48 20:27 23:33 Glucose POC Glucose 214 H 241 H 191 H 03/31/20 03/31/20 03/31/20 03:47 05:15 09:00 Glucose 161 H POC Glucose 164 H 163 H 03/31/20 03/31/20 12:04 12:27 Glucose POC Glucose 122 H 118 H OUTPATIENT ANTIDIABETIC REGIMEN: * Basaglar 90 units QAM, Metformin 1000 mg BIDM, Victoza 1.8 sq daily ASSESSMENT: 03/31 * Patient received total of 92 units of insulin yesterday, of which 70 were basal. Patient had been NPO, for procedure but then changed to diet at dinner yesterday * BSGs elevated yesterday evening likely related to steroids given in OR - fasting BSG 161 mg/dL, continue with Lantus 35 units this AM and will continue scale for HS * No change with CF/CR PLAN FOR INPATIENT GLYCEMIC CONTROL: * Hold outpatient oral diabetes medications * Basal insulin * Lantus 35 units SQ this AM, Scale for PM 25-35 units * Plan to adjust Lantus back to once daily dosing - will give this evenings dose slightly sooner * Bolus insulin * NovoLog per scale ACHS or Q6hrs while NPO * Goal Range: Low 110 mg/dL - High 140 mg/dL * Correction Factor: 15 mg/dL/unit * Nutritional / Prandial insulin per carb ratio of 1 unit per 5 grams CHO consumed PLAN FOR DISCHARGE: * tbd
--- NOTE | 2020-03-31 17:38 | Hospitalist Progress Note ---
Date of Service March 31, 2020 Assessment & Plan (1) Intractable abdominal pain: Effie Franklin is a 54 y/o is a with past medical hx of DM2-insulin dependent, HLD, HTN, Abdominal Pain who presented to [facility] ED for Fall. But was admitted for intractable abdominal pain. She notes coming here for a fall, but that she has been dealing with RUQ pain that has increased in severity over the past 3 weeks. She has turned down outpatient workup in the past. It is worsened with lettuce and spicy foods over the past 3 weeks, which is odd because lettuce wouldn't cause contraction of the gallbladder...unless the dressing was fatty. She has been afebrile, no elevated WBC or signs of infection, Lipase WNL, ALT/AST WNL. She denies her pain is related to the fall. Imaging workup did show gallstones, and common bile duct upper limit of normal 6mm. Per Radiology HIDA was positive, will order Surgery cx. -HIDA positive -Surg CX appreciated -Currently status post cholecystectomy postop day 1 -Routine postoperative care per surgery -Recommend 48 hours of IV antibiotics before transition to oral antibiotics -To consider transition to Augmentin -Advance diet and activity today patient tolerated well -Likely to discharge with a drain to be removed as an outpatient -continue analgesia with IV Tylenol and 0.5 mg dilaudid q3h Dispo: Obs, med/surg Code: Full FENGI: NPO, NSS @ 100ml/hr DVT ppx: SCDs (2) Fall: Mechanical, no acute fractures. Suspect will be sore from fall in upcoming days. -analgesia as above, discussed with pt importance to reduce opiate use as much as possible to prevent constipation and other adverse events -Rib fracture noted on review of chest x-ray, continue adequate analgesia to ensure pain control and full chest expansion (3) Cholelithiasis: as above (4) Essential hypertension: c/w HCTZ 25mg PO daily Ramipril 10mg non formulary (5) Dyslipidemia: Rosuvastatin 5mg PO daily (6) Controlled type 2 diabetes mellitus, with long-term current use of insulin: pharmacy consult placed, insulin dependent, currently NPO (7) Morbid obesity: Recommend lifestyle modifications. pt is precontemplation (8) Rib fracture: ensure adequate pain control. Incentive spirometer every hour while awake Admission and Anticipated Discharge Date Admission Date: March 31, 2020 Supervising Physician Co-Signing Physician Notes I personally examined the patient and verified all lambert points of history and exam, discussed case, and agree with decision making with Dr Brown. doing ok overall no new complaints vitals noted nad heent nc at mmm breathing unlabored no accessory muscles good effort skin no rashes no pallor or icterus gangrenous cholecystitis - now post op and doing well. continue zosyn. DM - insulin management, sugars acceptable. DVT proph - heparin SQ Subjective Patient lying in bed this morning in no acute distress. Patient reports not sleeping well overnight and that she is in significant discomfort although improved from yesterday. Patient reports her pain is well controlled on current pain regimen, however at times it takes a little bit to be effective. Patient reports voiding, has not had a bowel movement, sleeping well, tolerating her diet. Plan is to advance patient's diet this afternoon. Patient has been meeting her postoperative milestones and doing well. Acute concerns related to postoperative pain, all questions were answered. Review of Systems Review of Systems: All systems reviewed & are unremarkable except as noted in HPI & below Physical Exam Physical Exam: General:NAD Eyes:EOMI, NL to visual inspection Neck:normal to visual inspection trachea midline Chest:See attestation Cardiac:see attestation GI:Tender throughout all quadrants worst in the RUQ although improved from yesterday, no gaurding, neg murphys MSK:moves all extremities Neuro:alert and oriented Psych:calm, cooperative Results & Data Results & Data ([place]) Vital Signs (Past 12 Hours) Vital Signs Temp Pulse Resp BP BP Pulse Ox 03/31/20 16:29 37.3 C 85 16 143/85 H 98 03/31/20 13:49 36.9 C 87 16 107/70 98 03/31/20 07:54 36.8 C 76 16 125/80 97 Laboratory Results 03/31/20 03/31/20 03/31/20 Range/Units 17:02 12:27 12:04 WBC (4.8-10.8) K/uL RBC (4.2-5.4) M/uL Hgb (12.0-16.0) g/dL Hct (37-47) % MCV (80-100) fL MCH (25-34) pg MCHC (32-36) g/dL RDW Std Deviation (36.4-46.3) fL RDW Coeff of Jim (11.5-14.5) % Plt Count (130-400) K/uL MPV (7.4-10.4) fL Immature Gran % (Auto) % Neut % (Auto) % Lymph % (Auto) % Addison % (Auto) % Eos % (Auto) % Baso % (Auto) % Neut # (Auto) (1.4-6.5) K/uL Lymph # (Auto) (1.2-3.4) K/uL Addison # (Auto) (0.11-0.59) K/uL Eos # (Auto) (0-0.5) K/uL Baso # (Auto) (0-0.2) K/uL Immature Gran # (Auto) (0.00-0.02) K/uL Sodium (136-145) mmol/L Potassium (3.5-5.1) mmol/L Chloride (98-107) mmol/L Carbon Dioxide (21-32) mmol/L Anion Gap (3-11) BUN (7-18) mg/dl Creatinine (0.6-1.2) mg/dl Est Cr Clr Drug Dosing ml/min Est GFR ( Amer) Est GFR (Non-Af Amer) BUN/Creatinine Ratio (10-20) Glucose (70-99) mg/dl POC Glucose 133 H 118 H 122 H (70-99) mg/dl Calcium (8.5-10.1) mg/dl Phosphorus (2.5-4.9) mg/dl Magnesium (1.8-2.4) mg/dl Total Bilirubin (0.2-1) mg/dl Direct Bilirubin (0-0.2) mg/dl AST (15-37) U/L ALT (12-78) U/L Alkaline Phosphatase (45-117) U/L Total Protein (6.4-8.2) gm/dl Albumin (3.4-5.0) gm/dl Globulin (2.5-4.0) gm/dl Albumin/Globulin Ratio (0.9-2) 03/31/20 03/31/20 03/31/20 Range/Units 09:00 05:15 05:15 WBC 10.59 (4.8-10.8) K/uL RBC 4.62 (4.2-5.4) M/uL Hgb 12.3 (12.0-16.0) g/dL Hct 37.4 (37-47) % MCV 81.0 (80-100) fL MCH 26.6 (25-34) pg MCHC 32.9 (32-36) g/dL RDW Std Deviation 45.2 (36.4-46.3) fL RDW Coeff of Jim 15.3 H (11.5-14.5) % Plt Count 150 (130-400) K/uL MPV 10.7 H (7.4-10.4) fL Immature Gran % (Auto) 0.4 % Neut % (Auto) 83.0 % Lymph % (Auto) 8.1 % Addison % (Auto) 8.5 % Eos % (Auto) 0.0 % Baso % (Auto) 0.0 % Neut # (Auto) 8.79 H (1.4-6.5) K/uL Lymph # (Auto) 0.86 L (1.2-3.4) K/uL Addison # (Auto) 0.90 H (0.11-0.59) K/uL Eos # (Auto) 0.00 (0-0.5) K/uL Baso # (Auto) 0.00 (0-0.2) K/uL Immature Gran # (Auto) 0.04 H (0.00-0.02) K/uL Sodium 134 L (136-145) mmol/L Potassium 3.7 (3.5-5.1) mmol/L Chloride 99 (98-107) mmol/L Carbon Dioxide 28 (21-32) mmol/L Anion Gap 7.0 (3-11) BUN 13 D (7-18) mg/dl Creatinine 0.80 (0.6-1.2) mg/dl Est Cr Clr Drug Dosing 97.8 ml/min Est GFR ( Amer) 96.9 Est GFR (Non-Af Amer) 83.6 BUN/Creatinine Ratio 16.0 (10-20) Glucose 161 H (70-99) mg/dl POC Glucose 163 H (70-99) mg/dl Calcium 8.8 (8.5-10.1) mg/dl Phosphorus 2.7 (2.5-4.9) mg/dl Magnesium 1.9 (1.8-2.4) mg/dl Total Bilirubin 1.0 (0.2-1) mg/dl Direct Bilirubin 0.3 H (0-0.2) mg/dl AST 29 (15-37) U/L ALT 43 (12-78) U/L Alkaline Phosphatase 68 (45-117) U/L Total Protein 6.3 L D (6.4-8.2) gm/dl Albumin 3.0 L (3.4-5.0) gm/dl Globulin 3.3 (2.5-4.0) gm/dl Albumin/Globulin Ratio 0.9 (0.9-2) 03/31/20 03/30/20 03/30/20 Range/Units 03:47 23:33 20:27 WBC (4.8-10.8) K/uL RBC (4.2-5.4) M/uL Hgb (12.0-16.0) g/dL Hct (37-47) % MCV (80-100) fL MCH (25-34) pg MCHC (32-36) g/dL RDW Std Deviation (36.4-46.3) fL RDW Coeff of Jim (11.5-14.5) % Plt Count (130-400) K/uL MPV (7.4-10.4) fL Immature Gran % (Auto) % Neut % (Auto) % Lymph % (Auto) % Addison % (Auto) % Eos % (Auto) % Baso % (Auto) % Neut # (Auto) (1.4-6.5) K/uL Lymph # (Auto) (1.2-3.4) K/uL Addison # (Auto) (0.11-0.59) K/uL Eos # (Auto) (0-0.5) K/uL Baso # (Auto) (0-0.2) K/uL Immature Gran # (Auto) (0.00-0.02) K/uL Sodium (136-145) mmol/L Potassium (3.5-5.1) mmol/L Chloride (98-107) mmol/L Carbon Dioxide (21-32) mmol/L Anion Gap (3-11) BUN (7-18) mg/dl Creatinine (0.6-1.2) mg/dl Est Cr Clr Drug Dosing ml/min Est GFR ( Amer) Est GFR (Non-Af Amer) BUN/Creatinine Ratio (10-20) Glucose (70-99) mg/dl POC Glucose 164 H 191 H 241 H (70-99) mg/dl Calcium (8.5-10.1) mg/dl Phosphorus (2.5-4.9) mg/dl Magnesium (1.8-2.4) mg/dl Total Bilirubin (0.2-1) mg/dl Direct Bilirubin (0-0.2) mg/dl AST (15-37) U/L ALT (12-78) U/L Alkaline Phosphatase (45-117) U/L Total Protein (6.4-8.2) gm/dl Albumin (3.4-5.0) gm/dl Globulin (2.5-4.0) gm/dl Albumin/Globulin Ratio (0.9-2) 03/30/20 Range/Units 17:48 WBC (4.8-10.8) K/uL RBC (4.2-5.4) M/uL Hgb (12.0-16.0) g/dL Hct (37-47) % MCV (80-100) fL MCH (25-34) pg MCHC (32-36) g/dL RDW Std Deviation (36.4-46.3) fL RDW Coeff of Jim (11.5-14.5) % Plt Count (130-400) K/uL MPV (7.4-10.4) fL Immature Gran % (Auto) % Neut % (Auto) % Lymph % (Auto) % Addison % (Auto) % Eos % (Auto) % Baso % (Auto) % Neut # (Auto) (1.4-6.5) K/uL Lymph # (Auto) (1.2-3.4) K/uL Addison # (Auto) (0.11-0.59) K/uL Eos # (Auto) (0-0.5) K/uL Baso # (Auto) (0-0.2) K/uL Immature Gran # (Auto) (0.00-0.02) K/uL Sodium (136-145) mmol/L Potassium (3.5-5.1) mmol/L Chloride (98-107) mmol/L Carbon Dioxide (21-32) mmol/L Anion Gap (3-11) BUN (7-18) mg/dl Creatinine (0.6-1.2) mg/dl Est Cr Clr Drug Dosing ml/min Est GFR ( Amer) Est GFR (Non-Af Amer) BUN/Creatinine Ratio (10-20) Glucose (70-99) mg/dl POC Glucose 214 H (70-99) mg/dl Calcium (8.5-10.1) mg/dl Phosphorus (2.5-4.9) mg/dl Magnesium (1.8-2.4) mg/dl Total Bilirubin (0.2-1) mg/dl Direct Bilirubin (0-0.2) mg/dl AST (15-37) U/L ALT (12-78) U/L Alkaline Phosphatase (45-117) U/L Total Protein (6.4-8.2) gm/dl Albumin (3.4-5.0) gm/dl Globulin (2.5-4.0) gm/dl Albumin/Globulin Ratio (0.9-2) Medications Administered Current Inpatient Medications Acetaminophen (Acetaminophen 325 Mg Tab) 650 mg PO Q4H PRN PRN Reason: Pain or Fever Stop: 04/29/20 01:14 Dextrose (Dextrose 50% 50 Ml Syringe) 25 - 50 ml IV UD PRN; Protocol PRN Reason: Hypoglycemia Protocol Stop: 04/29/20 01:14 Enalapril Maleate (Enalapril Maleate 10 Mg Tab) 40 mg PO DAILY LUZ Stop: 04/29/20 08:59 Last Admin: 03/31/20 08:02 Dose: 40 mg Documented by: Glucagon (Glucagon For Inj 1 Mg Vial) 1 mg SQ UD PRN; Protocol PRN Reason: Hypoglycemia Protocol Stop: 04/29/20 01:14 Glucose (Glucose 10 Tabs/Tube) 4 - 8 tabs PO UD PRN; Protocol PRN Reason: Hypoglycemia Protocol Stop: 04/29/20 01:14 Glucose (Glucose 40% Gel 15 Gm Tube) 15 - 30 gm PO UD PRN; Protocol PRN Reason: Hypoglycemia Protocol Stop: 04/29/20 01:14 Heparin Sodium (Porcine) (Heparin Sod 5,000 Unit/0.5 Ml Vial) 5,000 units SQ Q12 LUZ Stop: 04/30/20 08:59 Last Admin: 03/31/20 09:19 Dose: 5,000 units Documented by: Hydrochlorothiazide (Hydrochlorothiazide 25 Mg Tab) 25 mg PO DAILY LUZ Stop: 04/29/20 08:59 Last Admin: 03/31/20 08:02 Dose: 25 mg Documented by: Hydromorphone HCl (Hydromorphone Inj 0.5 Mg/0.5 Ml Syr) 0.5 mg IV Q3H PRN PRN Reason: SEVERE Pain (Scale 7,8,9,10) Stop: 04/13/20 01:14 Last Admin: 03/30/20 02:10 Dose: 0.5 mg Documented by: Hydromorphone HCl (Hydromorphone Inj 0.5 Mg/0.5 Ml Syr) 0.5 mg IV Q3HWA PRN PRN Reason: Pain Stop: 04/13/20 17:49 Hydromorphone HCl (Hydromorphone Inj 1 Mg/Ml Syringe) 1 mg IV Q3HWA PRN PRN Reason: Pain Stop: 04/13/20 17:49 Last Admin: 03/30/20 22:24 Dose: 1 mg Documented by: Piperacillin Sod/Tazobactam (Sod 4.5 gm/ Dextrose) 120 mls @ 30 mls/hr IV Q8H [facility]; Protocol Stop: 04/09/20 19:59 Last Infusion: 03/31/20 15:48 Dose: Infused Documented by: Ibuprofen (Ibuprofen 600 Mg Tab) 600 mg PO Q6H PRN PRN Reason: Pain Stop: 04/29/20 17:49 Insulin Aspart (Insulin Aspart 100 Units/Ml 3 Ml Pen) 0 units SC ACHS [facility] Stop: 04/29/20 16:59 Last Admin: 03/31/20 17:32 Dose: 5 units Documented by: Insulin Glargine (Insulin Glargine Solostar 100 Units/Ml 3 Ml Pen) 0 units SC TODAY@1800 [facility]; Protocol Stop: 03/31/20 23:59 Last Admin: 03/31/20 17:32 Dose: 25 units Documented by: Miscellaneous (Carbohydrates For Hypoglycemia ) 15 - 30 gm PO UD PRN PRN Reason: Hypoglycemia Protocol Stop: 04/29/20 01:14 Miscellaneous Information (Pharmacy Glycemic Mgmt Consult) 1 ea N/A UD PRN; Protocol PRN Reason: Consult Stop: 04/29/20 04:51 Miscellaneous Information (Piperacill/Tazobac Consult Active) 1 ea N/A UD PRN PRN Reason: Consult Stop: 04/29/20 15:29 Ondansetron HCl (Ondansetron Inj 2 Mg/Ml 2 Ml Vial) 4 mg IV Q6H PRN PRN Reason: Nausea Stop: 04/29/20 01:14 Last Admin: 03/31/20 04:02 Dose: 4 mg Documented by: Oxycodone HCl (Oxycodone Hcl Ir 5 Mg Tab (Immediate Release)) 5 mg PO Q4HWA PRN PRN Reason: Pain Stop: 04/13/20 17:49 Last Admin: 03/31/20 13:25 Dose: 5 mg Documented by: Oxycodone HCl (Oxycodone Hcl Ir 5 Mg Tab (Immediate Release)) 10 mg PO Q4HWA PRN PRN Reason: Pain Stop: 04/13/20 18:34 Last Admin: 03/31/20 09:19 Dose: 10 mg Documented by: Polyethylene Glycol (Polyethylene (Miralax) 17 Gm Pack) 17 gm PO DAILY PRN PRN Reason: Constipation Stop: 04/29/20 01:14 Last Admin: 03/31/20 14:57 Dose: 17 gm Documented by: Rosuvastatin Calcium (Rosuvastatin Calcium 5 Mg Tab) 5 mg PO DAILY LUZ Stop: 04/29/20 08:59 Last Admin: 03/31/20 08:02 Dose: 5 mg Documented by: Resident Activity Tracking Resident Involvement: Resident Care Provided Care Provided: Adult Hospital Medicine (1) Fall Encounter type: initial encounter Qualified Code(s): W19.XXXA - Unspecified fall, initial encounter (2) Cholelithiasis Biliary obstruction: without biliary obstruction Cholecystitis presence: without cholecystitis Cholelithiasis location: gallbladder Qualified Code(s): K80.20 - Calculus of gallbladder without cholecystitis without obstruction
[2020-03-31] MEDS ORDERED: INSULIN GLARGINE SOLOSTAR 100 UNITS/ML 3 ML PEN SC SCH (18:00)
--- NOTE | 2020-03-31 20:04 | Billing Data ---
Date of Service March 31, 2020 Coding Level of Care Code 88255 Subseq Hosp Care Lvl 2
[2020-03-31] MEDS: HYDROmorphone INJ 1 MG/ML SYRINGE IV PRN (21:09)
[2020-04-01] MEDS: PIPERACILLIN/TAZOBACTAM 4.5 GM in DEXTROSE 5% 100 ML IV SCH ×3 (03:26→20:28)
--- NOTE | 2020-04-01 06:23 | Surgery Progress Note ---
Date of Service April 01, 2020 Assessment & Plan (1) History of laparoscopic cholecystectomy: Patient is doing well Tolerating some p.o. Continue IV antibiotics Check a.m. labs Planning on discharge tomorrow possibly with drain p.o. antibiotics And oxycodone Admission and Anticipated Discharge Date Admission Date: March 31, 2020 Results & Data ([facility]) Vital Signs (Past 12 Hours) Vital Signs Temp Pulse Resp BP Pulse Ox 04/01/20 00:12 36.8 C 86 20 143/76 H 97 PG Care Time/CCT Total # of Minutes Spent Total Time Spent with Patient: Total time spent is greater than 50% in coordination of care (as documented) at patient's floor/unit and/or counseling patient: Coding Level of Care Code None Diagnoses History of laparoscopic cholecystectomy Z90.49
[2020-04-01 06:49] LABS: Calcium 8.1 mg/dl (8.5-10.1); Potassium 3.5 mmol/L (3.5-5.1)
[2020-04-01 06:51] LABS: BUN Creatinine Ratio 15.2 (10-20); Creatinine Clr Calc Pharmacy 94.3 ml/min; Est GFR (African American) 92.7; Est GFR (Non-African American) 79.9
[2020-04-01 06:55] LABS: Albumin Globulin Ratio 0.8 (0.9-2); Albumin Level 2.8 gm/dl (3.4-5.0); Bilirubin Direct 0.4 mg/dl (0-0.2); Bilirubin,Total 1.1 mg/dl (0.2-1); Globulin 3.5 gm/dl (2.5-4.0); Total Protein 6.3 gm/dl (6.4-8.2)
[2020-04-01] MEDS: HEPARIN SOD 5,000 UNIT/0.5 ML VIAL SQ SCH ×2 (09:02→20:28)
[2020-04-01] MEDS: INSULIN ASPART 100 UNITS/ML 3 ML PEN SC SCH ×4 (09:03→20:33)
[2020-04-01] MEDS: ENALAPRIL MALEATE 10 MG TAB PO SCH (09:08)
[2020-04-01] MEDS: hydroCHLOROthiazide 25 MG TAB PO SCH (09:08)
[2020-04-01] MEDS: ROSUVASTATIN CALCIUM 5 MG TAB PO SCH (09:08)
--- NOTE | 2020-04-01 10:11 | Pharmacy Report ---
Pharmacy Glycemic Short Note 2 - Date of Service April 01, 2020 - Glycemic Short BSG Results (Last 24 hours): 03/31/20 03/31/20 03/31/20 12:04 12:27 17:02 Glucose POC Glucose 122 H 118 H 133 H 03/31/20 04/01/20 04/01/20 20:42 05:37 08:07 Glucose 141 H POC Glucose 160 H 131 H OUTPATIENT ANTIDIABETIC REGIMEN: * Basaglar 90 units QAM, Metformin 1000 mg BIDM, Victoza 1.8 sq daily ASSESSMENT: 04/01 * Patient received total of 73 units of insulin yesterday, of which 60 were basal insulin. No further steroids ordered * Fasting BSG 131 mg/dL - continue with 60 units of basal / adjusted to once daily dosing for ease in discharge to home regimen * BSGs well controlled / continue same CF/CR 03/31 * Patient received total of 92 units of insulin yesterday, of which 70 were basal. Patient had been NPO, for procedure but then changed to diet at dinner yesterday * BSGs elevated yesterday evening likely related to steroids given in OR - fasting BSG 161 mg/dL, continue with Lantus 35 units this AM and will continue scale for HS * No change with CF/CR PLAN FOR INPATIENT GLYCEMIC CONTROL: * Patient diet improving - restart home metformin with dinner * Basal insulin * Lantus 60 units daily * Bolus insulin * NovoLog per scale ACHS or Q6hrs while NPO * Goal Range: Low 110 mg/dL - High 140 mg/dL * Correction Factor: 15 mg/dL/unit * Nutritional / Prandial insulin per carb ratio of 1 unit per 5 grams CHO consumed PLAN FOR DISCHARGE: * A1C 6.4% - would recommend continuation of home diabetic medications as long as patient not reporting low BSGs at home
[2020-04-01] MEDS: ACETAMINOPHEN 325 MG TAB PO PRN ×2 (10:17→20:29)
[2020-04-01] MEDS ORDERED: POLYETHYLENE (MIRALAX) 17 GM PACK PO ONE ×2 (10:33→12:30)
--- NOTE | 2020-04-01 11:26 | Hospitalist Progress Note ---
Date of Service April 01, 2020 Assessment & Plan (1) Intractable abdominal pain: Effie Franklin is a 54 y/o is a with past medical hx of DM2-insulin dependent, HLD, HTN, Abdominal Pain who presented to [facility] for Fall. But was admitted for intractable abdominal pain. She notes coming here for a fall, but that she has been dealing with RUQ pain that has increased in severity over the past 3 weeks. She has turned down outpatient workup in the past. It is worsened with lettuce and spicy foods over the past 3 weeks, which is odd because lettuce wouldn't cause contraction of the gallbladder...unless the dressing was fatty. She has been afebrile, no elevated WBC or signs of infection, Lipase WNL, ALT/AST WNL. She denies her pain is related to the fall. Imaging workup did show gallstones, and common bile duct upper limit of normal 6mm. Per Radiology HIDA was positive, will order Surgery cx. -HIDA positive -Surg CX appreciated -Currently status post cholecystectomy postop day 2 -Routine postoperative care per surgery -day 2/2 of IV antibiotics before transition to oral antibiotics -To consider transition to Augmentin tomorrow -Advance diet and activity today patient tolerated well -Plan to discharge tomorrow with ocycodone for pain management drain to be removed as an outpatient -continue analgesia with IV Tylenol and 0.5 mg dilaudid q3h Dispo: Obs, med/surg Code: Full FENGI: NPO, NSS @ 100ml/hr DVT ppx: Heparin SQ (2) Fall: Mechanical, no acute fractures. Suspect will be sore from fall in upcoming days. -analgesia as above, discussed with pt importance to reduce opiate use as much as possible to prevent constipation and other adverse events -Rib fracture noted on review of chest x-ray, continue adequate analgesia to ensure pain control and full chest expansion -no concerns (3) Cholelithiasis: as above (4) Essential hypertension: c/w HCTZ 25mg PO daily Ramipril 10mg non formulary (5) Dyslipidemia: Rosuvastatin 5mg PO daily (6) Controlled type 2 diabetes mellitus, with long-term current use of insulin: pharmacy consult placed, insulin dependent, currently NPO (7) Morbid obesity: Recommend lifestyle modifications. pt is precontemplation (8) Rib fracture: ensure adequate pain control. Incentive spirometer every hour while awake Admission and Anticipated Discharge Date Admission Date: March 31, 2020 Supervising Physician Co-Signing Physician Notes I personally examined the patient and verified all lambert points of history and exam, discussed case, and agree with decision making with Dr Brown. feeling reasonably well. visiting w friends. in good spirits. vitals noted nad heent nc at mmm breathing unlabored no accessory muscles good effort skin no rashes no pallor or icterus gangrenous cholecystitis - now post op and doing well. continue zosyn into tomorrow - hopefully home tomorrow on po abx. DM - insulin management, sugars remain acceptable. DVT proph - heparin SQ Subjective Patient standing up next to the bed no acute distress. Reports significant improvement in her subjective pain today. Patient is in better spirits and overall feeling better. The plan is for the patient to receive 1 more day of IV antibiotics and transition to Augmentin which was subsequently discharged. She has been voiding, passing flatus, no bowel movement, sleeping, tolerating her diet. Acute concerns related to bowel movement all questions answered. Review of Systems Review of Systems: All systems reviewed & are unremarkable except as noted in HPI & below Physical Exam Physical Exam: General: No acute distress HEENT: Normocephalic atraumatic Neck: Normal to visual inspection trachea midline Cardiac: See attending attestation Respiratory: See attending attestation GI: Soft, significantly less tender, nondistended MSK: Negative calf tenderness Skin: Cool dry and intact Neuro: Alert and oriented x4 Psych: Calm and cooperative Results & Data Results & Data ([facility]) Vital Signs (Past 12 Hours) Vital Signs Temp Pulse Resp BP BP Pulse Ox 04/01/20 09:07 91 H 128/78 04/01/20 07:25 36.9 C 78 16 138/77 93 04/01/20 00:12 36.8 C 86 20 143/76 H 97 Laboratory Results 04/01/20 04/01/20 03/31/20 Range/Units 08:07 05:37 20:42 Sodium 136 (136-145) mmol/L Potassium 3.5 (3.5-5.1) mmol/L Chloride 100 (98-107) mmol/L Carbon Dioxide 29 (21-32) mmol/L Anion Gap 7.0 (3-11) BUN 13 (7-18) mg/dl Creatinine 0.83 (0.6-1.2) mg/dl Est Cr Clr Drug Dosing 94.3 ml/min Est GFR ( Amer) 92.7 Est GFR (Non-Af Amer) 79.9 BUN/Creatinine Ratio 15.2 (10-20) Glucose 141 H (70-99) mg/dl POC Glucose 131 H 160 H (70-99) mg/dl Calcium 8.1 L (8.5-10.1) mg/dl Total Bilirubin 1.1 H (0.2-1) mg/dl Direct Bilirubin 0.4 H (0-0.2) mg/dl AST 17 (15-37) U/L ALT 35 (12-78) U/L Alkaline Phosphatase 72 (45-117) U/L Total Protein 6.3 L (6.4-8.2) gm/dl Albumin 2.8 L (3.4-5.0) gm/dl Globulin 3.5 (2.5-4.0) gm/dl Albumin/Globulin Ratio 0.8 L (0.9-2) 03/31/20 03/31/20 03/31/20 Range/Units 17:02 12:27 12:04 Sodium (136-145) mmol/L Potassium (3.5-5.1) mmol/L Chloride (98-107) mmol/L Carbon Dioxide (21-32) mmol/L Anion Gap (3-11) BUN (7-18) mg/dl Creatinine (0.6-1.2) mg/dl Est Cr Clr Drug Dosing ml/min Est GFR ( Amer) Est GFR (Non-Af Amer) BUN/Creatinine Ratio (10-20) Glucose (70-99) mg/dl POC Glucose 133 H 118 H 122 H (70-99) mg/dl Calcium (8.5-10.1) mg/dl Total Bilirubin (0.2-1) mg/dl Direct Bilirubin (0-0.2) mg/dl AST (15-37) U/L ALT (12-78) U/L Alkaline Phosphatase (45-117) U/L Total Protein (6.4-8.2) gm/dl Albumin (3.4-5.0) gm/dl Globulin (2.5-4.0) gm/dl Albumin/Globulin Ratio (0.9-2) Medications Administered Current Inpatient Medications Acetaminophen (Acetaminophen 325 Mg Tab) 650 mg PO Q4H PRN PRN Reason: Pain or Fever Stop: 04/29/20 01:14 Last Admin: 04/01/20 10:17 Dose: 650 mg Documented by: Dextrose (Dextrose 50% 50 Ml Syringe) 25 - 50 ml IV UD PRN; Protocol PRN Reason: Hypoglycemia Protocol Stop: 04/29/20 01:14 Enalapril Maleate (Enalapril Maleate 10 Mg Tab) 40 mg PO DAILY LUZ Stop: 04/29/20 08:59 Last Admin: 04/01/20 09:08 Dose: 40 mg Documented by: Glucagon (Glucagon For Inj 1 Mg Vial) 1 mg SQ UD PRN; Protocol PRN Reason: Hypoglycemia Protocol Stop: 04/29/20 01:14 Glucose (Glucose 10 Tabs/Tube) 4 - 8 tabs PO UD PRN; Protocol PRN Reason: Hypoglycemia Protocol Stop: 04/29/20 01:14 Glucose (Glucose 40% Gel 15 Gm Tube) 15 - 30 gm PO UD PRN; Protocol PRN Reason: Hypoglycemia Protocol Stop: 04/29/20 01:14 Heparin Sodium (Porcine) (Heparin Sod 5,000 Unit/0.5 Ml Vial) 5,000 units SQ Q12 LUZ Stop: 04/30/20 08:59 Last Admin: 04/01/20 09:02 Dose: 5,000 units Documented by: Hydrochlorothiazide (Hydrochlorothiazide 25 Mg Tab) 25 mg PO DAILY LUZ Stop: 04/29/20 08:59 Last Admin: 04/01/20 09:08 Dose: 25 mg Documented by: Hydromorphone HCl (Hydromorphone Inj 0.5 Mg/0.5 Ml Syr) 0.5 mg IV Q3H PRN PRN Reason: SEVERE Pain (Scale 7,8,9,10) Stop: 04/13/20 01:14 Last Admin: 03/30/20 02:10 Dose: 0.5 mg Documented by: Hydromorphone HCl (Hydromorphone Inj 0.5 Mg/0.5 Ml Syr) 0.5 mg IV Q3HWA PRN PRN Reason: Pain Stop: 04/13/20 17:49 Hydromorphone HCl (Hydromorphone Inj 1 Mg/Ml Syringe) 1 mg IV Q3HWA PRN PRN Reason: Pain Stop: 04/13/20 17:49 Last Admin: 03/31/20 21:09 Dose: 1 mg Documented by: Piperacillin Sod/Tazobactam (Sod 4.5 gm/ Dextrose) 120 mls @ 30 mls/hr IV Q8H LUZ; Protocol Stop: 04/09/20 19:59 Last Infusion: 04/01/20 07:40 Dose: Infused Documented by: Ibuprofen (Ibuprofen 600 Mg Tab) 600 mg PO Q6H PRN PRN Reason: Pain Stop: 04/29/20 17:49 Insulin Aspart (Insulin Aspart 100 Units/Ml 3 Ml Pen) 0 units SC ACHS LUZ Stop: 04/29/20 16:59 Last Admin: 04/01/20 09:03 Dose: 9 units Documented by: Insulin Glargine (Insulin Glargine Solostar 100 Units/Ml 3 Ml Pen) 60 units SC DAILY LUZ Stop: 05/01/20 11:59 Metformin HCl (Metformin Hcl 500 Mg Tab) 1,000 mg PO BIDM LUZ Stop: 05/01/20 16:59 Miscellaneous (Carbohydrates For Hypoglycemia ) 15 - 30 gm PO UD PRN PRN Reason: Hypoglycemia Protocol Stop: 04/29/20 01:14 Miscellaneous Information (Pharmacy Glycemic Mgmt Consult) 1 ea N/A UD PRN; Protocol PRN Reason: Consult Stop: 04/29/20 04:51 Miscellaneous Information (Piperacill/Tazobac Consult Active) 1 ea N/A UD PRN PRN Reason: Consult Stop: 04/29/20 15:29 Ondansetron HCl (Ondansetron Inj 2 Mg/Ml 2 Ml Vial) 4 mg IV Q6H PRN PRN Reason: Nausea Stop: 04/29/20 01:14 Last Admin: 03/31/20 04:02 Dose: 4 mg Documented by: Oxycodone HCl (Oxycodone Hcl Ir 5 Mg Tab (Immediate Release)) 5 mg PO Q4HWA PRN PRN Reason: Pain Stop: 04/13/20 17:49 Last Admin: 03/31/20 13:25 Dose: 5 mg Documented by: Oxycodone HCl (Oxycodone Hcl Ir 5 Mg Tab (Immediate Release)) 10 mg PO Q4HWA PRN PRN Reason: Pain Stop: 04/13/20 18:34 Last Admin: 03/31/20 09:19 Dose: 10 mg Documented by: Polyethylene Glycol (Polyethylene (Miralax) 17 Gm Pack) 17 gm PO DAILY PRN PRN Reason: Constipation Stop: 04/29/20 01:14 Last Admin: 03/31/20 14:57 Dose: 17 gm Documented by: Polyethylene Glycol (Polyethylene (Miralax) 17 Gm Pack) 17 gm PO BID LUZ Stop: 05/01/20 20:59 Rosuvastatin Calcium (Rosuvastatin Calcium 5 Mg Tab) 5 mg PO DAILY LUZ Stop: 04/29/20 08:59 Last Admin: 04/01/20 09:08 Dose: 5 mg Documented by: Resident Activity Tracking Resident Involvement: Resident Care Provided Care Provided: Adult Hospital Medicine (1) Fall Encounter type: initial encounter Qualified Code(s): W19.XXXA - Unspecified fall, initial encounter (2) Cholelithiasis Biliary obstruction: without biliary obstruction Cholecystitis presence: without cholecystitis Cholelithiasis location: gallbladder Qualified Code(s): K80.20 - Calculus of gallbladder without cholecystitis without obstruction
[2020-04-01] MEDS: INSULIN GLARGINE SOLOSTAR 100 UNITS/ML 3 ML PEN SC SCH (12:15)
[2020-04-01] MEDS: METFORMIN HCL 500 MG TAB PO SCH (17:34)
--- NOTE | 2020-04-01 18:36 | Billing Data ---
Date of Service April 01, 2020 Coding Level of Care Code 20244 Subseq Hosp Care Lvl 2
[2020-04-01] MEDS: POLYETHYLENE (MIRALAX) 17 GM PACK PO SCH (20:29)
[2020-04-02] MEDS: PIPERACILLIN/TAZOBACTAM 4.5 GM in DEXTROSE 5% 100 ML IV SCH (04:06)
--- NOTE | 2020-04-02 06:28 | Surgery Progress Note ---
Date of Service April 02, 2020 Assessment & Plan (1) History of laparoscopic cholecystectomy: Patient with necrotizing cholecystitis-gangrenous cholecystitis She is stable for discharge from a surgical standpoint We will leave the drain in place and remove it in the office early next week I have written for oxycodone and Augmentin-prescription sent to pharmacy Activity info filled out in the discharge as well as other instructions We will see the patient in the office early next week Admission and Anticipated Discharge Date Admission Date: March 31, 2020 Results & Data ([facility]) Vital Signs (Past 12 Hours) Vital Signs Temp Pulse Resp BP Pulse Ox 04/01/20 23:25 36.7 C 80 16 137/83 97 PG Care Time/CCT Total # of Minutes Spent Total Time Spent with Patient: Total time spent is greater than 50% in c oordination of care (as documented) at patient's floor/unit and/or counseling patient: Coding Level of Care Code None Diagnoses History of laparoscopic cholecystectomy Z90.49
[2020-04-02 07:36] LABS: Est GFR (African American) 87.5; Est GFR (Non-African American) 75.5
--- NOTE | 2020-04-02 07:39 | Discharge Summary ---
Date of Service April 02, 2020 Admission HPI Per Admitting Provider Chief Complaint: Abdominal Pain Primary Care Provider: Stan Fernández MD Effie Franklin is a 54 y/o is a with past medical hx of DM2-insulin dependent, HLD, HTN, Abdominal Pain who presented to [facility] ED for Fall. She notes today she fell about 2pm after slipping on wet porch she was cleaning. She fell backwards and struck her lower back against the deck. She notes she got up and was recovering from fall when about 30 minutes later she had 10/10 RUQ pain. She notes the pain has been constant since. She notes coming here for a fall, but that she has been dealing with RUQ pain that has increased in severity over the past 3 weeks. It is worsened with lettuce and spicy foods over the past 3 weeks. She notes she has brought this up to her PCP, but she has always declined the workup/US Gallbladder in the office. She notes she has been using lechitin in attempt to treat her this. She notes she had perorgies and [place] at 12pm today. She notes that the ride took 45 minutes here from where she lives and she almost passed out from the pain. She notes she had nausea and vomiting from pain when she arrived. She denies any recent fever, chills, chest pain, shortness of breath. In the ED, she is afebrile, no elevated WBC or signs of infection, Lipase WNL, ALT/AST WNL. Imaging with CT Abd Pelvis w/IV contrast - The gallbladder is distended and contains several small calcified dependent layering gallstone, correlate clinically. Normal appendix. CT L spine no evidence of fracture or malalignment US gallbladder - Cholelithiasis, no significant gallbladder wall thickening, common bile duct upper limit of normal 6mm, negative marcelo's. CXR no evidence of rib fracture. She received Morphine 4mg IV, Dilaudid 0.25mg IV, Dilaudid 0.5mg, Zofran 4mg IV, NS 500cc. Admission Exam Per Admitting Provider Constitutional: WD/WN, vitals as above cooperative and comfortable able to sit up when asked to auscultate lungs without noticable pain; nods off occasionally during interview Eyes: PERRL, conjunctivae normal, anicteric sclerae ENMT: external ear and nose normal, oropharynx normal Neck: normal visual inspection and trachea midline Respiratory: normal respiratory effort, lungs clear to auscultation Cardiovascular: Rate/Rhythm: regular rate and regular rhythm Extremities: no calf tenderness Gastrointestinal (Abdomen): Inspection/Auscultation: abdomen normal to inspection and normal bowel sounds Percussion/Palpation: + abdomen tender (mild epigastric without rebound) and abdomen soft; no guarding and abdomen not rigid negative marcelo Musculoskeletal: Head/Neck/Chest: normocephalic and head atraumatic Skin: no rashes, warm and dry Neurologic: moves all extremities and awake Psychiatric: Orientation: alert and oriented x 3 Principal Diagnosis Necrotizing cholecystitis in the setting of abdominal pain status post fall complicated by morbid obesity, essential hypertension, diabetes end-stage and essential hypertension Discharge Exam General: No acute distress HEENT: Normocephalic atraumatic Neck: Normal to visual inspection trachea midline Cardiac: See attending attestation Respiratory: See attending attestation GI: Soft, significantly less tender, nondistended MSK: Negative calf tenderness Skin: Cool dry and intact Neuro: Alert and oriented x4 Psych: Calm and cooperative Discharge Data Allergies Allergy/AdvReac Type Severity Reaction Status Date / Time latex Allergy Rash Unverified 03/29/20 21:39 Consultations 03/29/20 23:10 ED Decision to Admit Stat 03/30/20 09:52 Consult General Surgery Routine Procedures Performed Operation Date: 03/30/20 10:20 Actual Procedures p Laparoscopic Cholecystectomy - Mykel Ellis MD, FACS Ordered Studies 03/29/20 18:44 CT abd pelvis IV con only Urgent CT lumbar spine wo con Urgent 03/29/20 20:47 US gallbladder Urgent Hospital Course (1) Intractable abdominal pain: Effie Franklin is a 54 y/o is a with past medical hx of DM2-insulin dependent, HLD, HTN, Abdominal Pain who presented to [facility] ED for Fall. But was admitted for intractable abdominal pain. She notes coming here for a fall, but that she has been dealing with RUQ pain that has increased in severity over the past 3 weeks. She has turned down outpatient workup in the past. It is worsened with lettuce and spicy foods over the past 3 weeks, which is odd because lettuce wouldn't cause contraction of the gallbladder...unless the dressing was fatty. She has been afebrile, no elevated WBC or signs of infection, Lipase WNL, ALT/AST WNL. She denies her pain is related to the fall. Imaging workup did show gallstones, and common bile duct upper limit of normal 6mm. Per Radiology HIDA was positive, will order general surgery was consulted and diagnosed with cholecystitis. Intraoperatively she was diagnosed with gangrenous acute cholecystitis. She tolerated the procedure well and met all of her postoperative milestones. She was provided routine postoperative care and 2 days of IV antibiotics before transitioning to Augmentin. She will be discharged with a drain in place to follow-up with surgery next week and to complete an outpatient course of Augmentin. Analgesia with NSAIDs and oxycodone per surgery Dispo: home Code: Full FENGI: NPO, NSS @ 100ml/hr DVT ppx: Heparin SQ (2) Fall: Because of her original presentation it was mechanical in nature with an acute rib fracture. Patient has been breathing well with no significant distress. Analgesia as above (3) Cholelithiasis: as above (4) Essential hypertension: c/w HCTZ 25mg PO daily Ramipril 10mg non formulary (5) Dyslipidemia: Rosuvastatin 5mg PO daily (6) Controlled type 2 diabetes mellitus, with long-term current use of insulin: Resume home insulin regimen on discharge (7) Morbid obesity: Recommend lifestyle modifications. pt is precontemplation (8) Rib fracture: ensure adequate pain control. Counseled patient on importance to take deep breaths Total Time Total Time Spent Total Time Spent (In Minutes): <30 Discharge Plan Discharge Items Patient Disposition: Home - Self-Care Reason For Visit: ABDOMINAL PAIN Discharge Diagnosis: Necrotizing cholecystitis Activity: As commented below Activity Comment: Light activity for 3 weeks Lifting: No more than 10 pounds Bathing Comment: May shower Exercise Comment: Wait 3 weeks Non-emergency contact: Primary Care Provider and Surgeon Call non-emergency contact if: your pain is not controlled, your temperature is above 101 and your wound has increased drainage Follow-up/Referrals: Stan Fernández MD [Primary Care Provider] - Diet: Carb Consistent or DM2 Addtl Attending Provider Instructions: SPECIAL CARE INSTRUCTIONS: * Cover incisions and change daily for comfort/drainage. *Empty drain 1-2 times per day and record volume * May use ibuprofen for pain as tolerated. * Expect some swelling and bruising. Call your doctor if: * Temperature above 101 degrees * Pain not relieved by pain medicine ordered * There is increased drainage or redness from any incision * You have any unanswered questions or concerns [phone]. FOLLOW UP VISIT: If not already scheduled, please call the office for a follow-up visit. For next Monday/Monday-possible drain removal, some suture removal OFFICE PHONE NUMBER: Dr. Ellis Office Pending Studies at Discharge: No Stand-Alone Forms: My [facility], Smoking Cessation Medications and DC Order Prescriptions: New amoxicillin-pot clavulanate [Augmentin] 875-125 mg tablet 1 tab PO BID Qty: 14 RF: 0 oxycodone 5 mg tablet 5 - 10 mg PO Q6H PRN (Reason: pain) Qty: 30 RF: 0 Continued ramipril 10 mg capsule 10 mg PO DAILY Qty: 90 RF: 3 hydrochlorothiazide 25 mg tablet 25 mg PO DAILY Qty: 90 RF: 1 rosuvastatin 5 mg tablet 5 mg PO DAILY Qty: 90 RF: 3 cholecalciferol (vitamin D3) 1,000 unit capsule 1,000 units PO DAILY RF: 0 cyanocobalamin (vitamin B-12) 1,000 mcg tablet extended release 1,000 mcg PO DAILY RF: 0 metformin 1,000 mg tablet 1,000 mg PO BID Qty: 180 RF: 3 liraglutide 0.6 mg/0.1 mL (18 mg/3 mL) pen injector 1.8 mg subcut DAILY Qty: 27 RF: 3 Basaglar KwikPen U-100 Insulin 100 unit/mL (3 mL) insulin pen 90 units SQ DAILY 90 Days Qty: 6 RF: 3 Discharge Orders: Discharge Order (Routine); Ordered 04/02/20 Ordered By: Mykel Murillo/Other Patient Handouts: Managing Type 2 Diabetes Admission Data Admit Date/Time: 03/31/20 06:29 Attending Provider: Basim Joseph Admit Provider: Elvis Johnston Primary Care Provider: Stan Fernández Other Providers: Starr Brown ; Mykel Ellis ; Matthew Hicks ; Luan Aparicio ; Elvis Shoemaker Jr ; Junior Rodríguez ; Gerber Luciano ; Jessica Mckeon ; Hemant Segura ; Gregg Larry Other Interventions: Discharge Summary Assessment (RN) Last Done: 04/02/20 10:48 Supervising Physician Co-Signing Physician Notes I personally examined the patient and verified all lambert points of history and exam, discussed case, and agree with decision making with Dr Brown. feeling reasonably well. ready to go home vitals noted nad heent nc at mmm breathing unlabored no accessory muscles good effort skin no rashes no pallor or icterus gangrenous cholecystitis - now post op and doing well. stable for home, PO abx. DM - stable to resume outpt management DVT proph - heparin SQ utilized while she was here Resident Activity Tracking Resident Involvement: Resident Care Provided Care Provided: Adult Hospital Medicine
[2020-04-02] MEDS: ENALAPRIL MALEATE 10 MG TAB PO SCH (08:47)
[2020-04-02] MEDS: ROSUVASTATIN CALCIUM 5 MG TAB PO SCH (08:47)
[2020-04-02] MEDS: hydroCHLOROthiazide 25 MG TAB PO SCH (08:47)
[2020-04-02] MEDS: METFORMIN HCL 500 MG TAB PO SCH (08:47)
[2020-04-02] MEDS: INSULIN GLARGINE SOLOSTAR 100 UNITS/ML 3 ML PEN SC SCH (08:49)
[2020-04-02] MEDS: HEPARIN SOD 5,000 UNIT/0.5 ML VIAL SQ SCH (08:49)
[2020-04-02] MEDS: POLYETHYLENE (MIRALAX) 17 GM PACK PO SCH (08:49)
[2020-04-02] MEDS: INSULIN ASPART 100 UNITS/ML 3 ML PEN SC SCH (08:51)
--- NOTE | 2020-04-02 19:37 | Billing Data ---
Date of Service April 02, 2020 Coding Level of Care Code D/C Day Management <30 mins
== END 2020-04-02 11:40 | disposition home or self-care (01) | DRG 418 ==
LOC: ED 17:16 → 3E 17:16 → SUATTDRO 03-30 00:25 → 3E 03-30 01:00

== ENCOUNTER 2020-04-06 19:20 | Inpatient (IN) ==
[2020-04-06] MEDS ORDERED: ONDANSETRON INJ 2 MG/ML 2 ML VIAL IV STA (19:48)
--- NOTE | 2020-04-06 19:56 | Emergency Department Note ---
History of Present Illness General Chief complaint: Nausea Stated complaint: EXTREME VOMITING POST OP SINCE LAST WEEK Time Seen by Provider: 04/06/20 19:36 Source: patient Mode of arrival: ambulatory Limitations: no limitations History of Present Illness Provider complaint: Nausea/vomiting Maximum Pain Intensity: 3 This is a 54-year-old female who presents to the ED with a chief complaint of nausea and vomiting. The patient states that she had her gallbladder removed a week ago by Dr. Ellis. It was gangrenous at that time. She was discharged on . She states that she started having a little nausea on Monday and Monday. She started vomiting on Monday. She was called in a prescription for Zofran ODT. It helped overnight but it did not help at all today. Her last dose of Zofran was 3 PM today. She reports that she is not been able to eat or drink anything for the past few days. She is also experiencing some right-sided abdominal discomfort that seems to be about the same as it has been. She also has a GILMAR drain that has been draining a straw-colored fluid. This is not changed in color since it was placed. She did not report any diarrhea, chest pains, shortness of breath or fevers. Home Medications Home Medications Medication Instructions Recorded Confirmed Type cholecalciferol (vitamin D3) 25 1,000 units PO DAILY cap 05/29/19 04/06/20 History mcg (1,000 unit) capsule cyanocobalamin (vitamin B-12) 1,000 mcg PO DAILY tab 05/29/19 04/06/20 History 1,000 mcg tablet,extended release metformin 1,000 mg tablet 1,000 mg PO BID #180 tab 01/24/20 04/06/20 Rx amoxicillin-pot clavulanate 1 tab PO BID #14 tab 04/02/20 04/06/20 Rx [Augmentin] Basaglhnug Joseph U-100 Insulin 38 - 40 units SQ BID MDD 90 04/06/20 04/06/20 History UNITS/DAY hydrochlorothiazide 25 mg PO QAM 04/06/20 04/06/20 History liraglutide 1.8 mg SUBCUT QAM 04/06/20 04/06/20 History ondansetron HCl [Zofran] 4 mg PO Q8H PRN 04/06/20 04/06/20 History oxycodone 5 - 10 mg PO Q6H PRN 04/06/20 04/06/20 History ramipril 10 mg PO QAM 04/06/20 04/06/20 History rosuvastatin 5 mg PO QAM 04/06/20 04/06/20 History Allergies Allergy/AdvReac Type Severity Reaction Status Date / Time latex Allergy Rash Verified 04/06/20 20:22 Past Med/Surg History Medical History Controlled type 2 diabetes mellitus, with long-term current use of insulin Dyslipidemia Essential hypertension Left knee DJD Obesity Proteinuria due to type 2 diabetes mellitus Shingles Surgical History History of incision and drainage abdominal wall abscess--panniculitis History of tonsillectomy Hx laparoscopic cholecystectomy (03/30/20) Laparoscopic cholecystectomy with drainage. Dr. Ellis 03/30/2020 Family History Aunt Colorectal cancer Father H/O coronary artery bypass surgery age 70 Cardiac disorder Diabetes Gallbladder disease Hypertension Sister Gallbladder disease Mother Hypothyroidism Social History Smoking Status: Never smoker Second Hand Exposure: No; Hx Alcohol Use: No Hx Substance Use: No Preferred Language: Georgian Communication Ability: Effective Visual Impairment: No Limitations Hearing Ability: Normal Beliefs That Will Affect Care: None marital status: Single Current Living Situation: Parent, Family and Other Current Living Situation Comment: patients father and daughter live with her current occupational status: employed 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 Feels Safe at Home: Yes Childhood Exposure to Second-Hand Smoke: No Dental Care, Regularly: No Physical Activity Frequency: Daily Seatbelt Use: always Sunscreen Use: Yes Review of Systems A total of 10 systems reviewed and were otherwise negative Physical Exam Vital Signs Vital Signs - 24 hr 04/06/20 19:24 04/06/20 20:10 04/06/20 20:31 Temperature 37.1 C Temperature Source Oral Pulse Rate 97 H 87 87 Pulse Rate from SpO2 Sensor 88 Pulse Rhythm Regular Respiratory Rate 18 18 14 Respiratory Effort / Characteristics Non-Labored Respiratory Depth Normal Blood Pressure 174/100 H Blood Pressure Mean 145 Pulse Oximetry 96 96 97 Oxygen Delivery Method Room Air Room Air Room Air Sepsis Recent Fever Within 48 Hours No Sepsis New/Unexplained Change in Mental Status No Sepsis Action Taken by Nursing No Action Required 04/06/20 21:01 Temperature Temperature Source Pulse Rate 84 Pulse Rate from SpO2 Sensor 83 Pulse Rhythm Respiratory Rate 19 Respiratory Effort / Characteristics Respiratory Depth Blood Pressure 157/90 H Blood Pressure Mean 103 Pulse Oximetry 96 Oxygen Delivery Method Sepsis Recent Fever Within 48 Hours Sepsis New/Unexplained Change in Mental Status Sepsis Action Taken by Nursing CONSTITUTIONAL/VITAL SIGNS: Reviewed / noted above. GENERAL: Non-toxic in appearance. INTEGUMENTARY: Warm, dry, and Aristes. HEAD: Normocephalic. EYES: without scleral icterus or trauma. ENT/OROPHARYNX: clear and moist. LYMPHADENOPATHY/NECK: Is supple without lymphadenopathy or meningismus. RESPIRATORY: Lungs clear and equal. CARDIOVASCULAR: Regular rate and rhythm. GI/ABDOMEN: Soft and tender in the right upper and mid abdominal region. No organomegaly or pulsatile mass. No rebound or guarding. Normal bowel sounds. There is a GILMAR drain in place draining a bilious fluid. EXTREMITIES: Warm and well perfused. BACK: No CVA tenderness. NEUROLOGICAL: Intact without focal deficits. PSYCHIATRIC: normal affect. MUSCULOSKELETAL: Normally developed with good muscle tone. TRIAGE NURSING DOCUMENTATION REVIEWED. Course Administered Medications Discontinued Medications Sodium Chloride (Nss 1000ml) 1,000 mls @ 999 mls/hr IV .Q1H1M LUZ Stop: 04/06/20 21:00 Last Infusion: 04/06/20 20:52 Dose: 0 mls/hr Documented by: [id number] Admin: 04/06/20 20:12 Dose: 999 mls/hr Documented by: [id number] Prochlorperazine (Compazine) 2 mls @ 1 mls/min IV ONE ONE Stop: 04/06/20 21:34 Last Admin: 04/06/20 21:57 Dose: 1 mls/min Documented by: [id number] Ioversol (Ioversol 100ml) 94 ml IV ONCE ONE Stop: 04/06/20 22:47 Last Admin: 04/06/20 22:46 Dose: 94 ml Documented by: [id number] Ondansetron HCl (Ondansetron Inj 2 Mg/Ml 2 Ml Vial) 4 mg IV NOW STA Stop: 04/06/20 19:49 Last Admin: 04/06/20 20:12 Dose: 4 mg Documented by: [id number] Medical Decision Making Differential Diagnosis Differential considered: pancreatitis, hepatitis, acute cholecystitis, AAA, UTI, pyelonephritis, kidney stones, appendicitis, diverticulitis, shingles, bowel obstruction, mesenteric ischemia, intussusception,hernia, postsurgical complication. Medical Records Attestation: I reviewed the patient's medical records. Home Medications Current Medication List: was personally reviewed by me Laboratory Data Attestation: I reviewed the patient's lab results. Result diagrams: 04/06/20 20:10 04/06/20 20:10 Lab Results 04/06/20 04/06/20 04/06/20 Range/Units 20:10 20:10 20:10 WBC 6.85 (4.8-10.8) K/uL RBC 5.08 (4.2-5.4) M/uL Hgb 13.6 (12.0-16.0) g/dL Hct 41.1 (37-47) % MCV 80.9 (80-100) fL MCH 26.8 (25-34) pg MCHC 33.1 (32-36) g/dL RDW Std Deviation 43.6 (36.4-46.3) fL RDW Coeff of Jim 14.8 H (11.5-14.5) % Plt Count 231 (130-400) K/uL MPV 9.4 (7.4-10.4) fL Immature Gran % (Auto) 0.6 % Neut % (Auto) 81.9 % Lymph % (Auto) 10.5 % Villalba % (Auto) 7.0 % Eos % (Auto) 0.0 % Baso % (Auto) 0.0 % Neut # (Auto) 5.61 (1.4-6.5) K/uL Lymph # (Auto) 0.72 L (1.2-3.4) K/uL Villalba # (Auto) 0.48 (0.11-0.59) K/uL Eos # (Auto) 0.00 (0-0.5) K/uL Baso # (Auto) 0.00 (0-0.2) K/uL Immature Gran # (Auto) 0.04 H (0.00-0.02) K/uL Sodium 136 (136-145) mmol/L Potassium 3.7 (3.5-5.1) mmol/L Chloride 95 L (98-107) mmol/L Carbon Dioxide 33 H (21-32) mmol/L Anion Gap 8.0 (3-11) BUN 9 (7-18) mg/dl Creatinine 0.93 (0.6-1.2) mg/dl Est Cr Clr Drug Dosing Not Reportable Est GFR ( Amer) 80.8 Est GFR (Non-Af Amer) 69.7 BUN/Creatinine Ratio 10.0 (10-20) Glucose 117 H (70-99) mg/dl Calcium 9.8 (8.5-10.1) mg/dl Total Bilirubin 5.0 H (0.2-1) mg/dl Direct Bilirubin 4.1 H (0-0.2) mg/dl AST 251 H (15-37) U/L ALT 233 H (12-78) U/L Alkaline Phosphatase 445 H (45-117) U/L Total Protein 7.6 (6.4-8.2) gm/dl Albumin 3.4 (3.4-5.0) gm/dl Globulin 4.2 H (2.5-4.0) gm/dl Albumin/Globulin Ratio 0.8 L (0.9-2) Lipase 191 (73-393) U/L Urine Color Urine Appearance (Clear) Urine pH (4.5-7.5) Ur Specific [place] (1.000-1.030) Urine Protein (Negative) Urine Glucose (UA) (Negative) Urine Ketones (Negative) Urine Blood (Negative) Urine Nitrite (Negative) Urine Bilirubin (Negative) Urine Urobilinogen (Negative) Ur Leukocyte Esterase (Negative) 04/06/20 Range/Units 20:55 WBC (4.8-10.8) K/uL RBC (4.2-5.4) M/uL Hgb (12.0-16.0) g/dL Hct (37-47) % MCV (80-100) fL MCH (25-34) pg MCHC (32-36) g/dL RDW Std Deviation (36.4-46.3) fL RDW Coeff of Jim (11.5-14.5) % Plt Count (130-400) K/uL MPV (7.4-10.4) fL Immature Gran % (Auto) % Neut % (Auto) % Lymph % (Auto) % Villalba % (Auto) % Eos % (Auto) % Baso % (Auto) % Neut # (Auto) (1.4-6.5) K/uL Lymph # (Auto) (1.2-3.4) K/uL Villalba # (Auto) (0.11-0.59) K/uL Eos # (Auto) (0-0.5) K/uL Baso # (Auto) (0-0.2) K/uL Immature Gran # (Auto) (0.00-0.02) K/uL Sodium (136-145) mmol/L Potassium (3.5-5.1) mmol/L Chloride (98-107) mmol/L Carbon Dioxide (21-32) mmol/L Anion Gap (3-11) BUN (7-18) mg/dl Creatinine (0.6-1.2) mg/dl Est Cr Clr Drug Dosing Est GFR ( Amer) Est GFR (Non-Af Amer) BUN/Creatinine Ratio (10-20) Glucose (70-99) mg/dl Calcium (8.5-10.1) mg/dl Total Bilirubin (0.2-1) mg/dl Direct Bilirubin (0-0.2) mg/dl AST (15-37) U/L ALT (12-78) U/L Alkaline Phosphatase (45-117) U/L Total Protein (6.4-8.2) gm/dl Albumin (3.4-5.0) gm/dl Globulin (2.5-4.0) gm/dl Albumin/Globulin Ratio (0.9-2) Lipase (73-393) U/L Urine Color Yellow Urine Appearance Clear (Clear) Urine pH 7.5 (4.5-7.5) Ur Specific [place] 1.010 (1.000-1.030) Urine Protein Negative (Negative) Urine Glucose (UA) Negative (Negative) Urine Ketones Negative (Negative) Urine Blood Negative (Negative) Urine Nitrite Negative (Negative) Urine Bilirubin 1+ H (Negative) Urine Urobilinogen Negative (Negative) Ur Leukocyte Esterase Negative (Negative) Imaging Data Radiologist's Impression: CT scan of the abdomen pelvis: 6.2 cm collection with trace air in the gallbladder fossa, could be postoperative collection, infected biloma or abscess. Drain passes through the inferior aspect of the collection. Cholecystectomy. Fatty liver. Small low-attenuation focus in the right kidney. Radiologist: Daly Diaz MD MDM Narrative 54-year-old female presents as above with nausea and vomiting that has not been improved with Zofran ODT. Her exam reveals some tenderness and a GILMAR drain draining a bilious fluid. She has some tenderness on my exam. She is afebrile and her vital signs are stable. The laboratory studies reveal a normal CBC. C hemistry panel shows a increased bilirubin of 5. AST and ALT are elevated suggesting a transaminitis. Lipase is normal. The patient CT scan as noted above. The patient was seen by the surgical service and admitted to the hospital. Impression & Plan Nausea & vomiting, Abdominal pain Discharge Plan Visit Data Chief Complaint: Nausea Stated Complaint: EXTREME VOMITING POST OP SINCE LAST WEEK ED Provider: Asher Ferrari Discharge Problem: Nausea & vomiting, Abdominal pain Patient Disposition: Admitted As Inpatient Discharge Instructions Interventions: ED Discharge Assessment Last Done: 04/06/20 22:37 Discharge Problem: Nausea & vomiting Qualifiers: Vomiting type: unspecified Vomiting Intractability: non-intractable Qualified Code(s): R11.2 - Nausea with vomiting, unspecified Abdominal pain Qualifiers: Abdominal location: right upper quadrant Qualified Code(s): R10.11 - Right upper quadrant pain
[2020-04-06] MEDS ORDERED: SODIUM CHLORIDE 0.9% 1000ML 1,000 ML IV SCH (20:00)
[2020-04-06 20:24] LABS: Hematocrit (blood only) 41.1 % (37-47); Hemoglobin 13.6 g/dL (12.0-16.0); Immature Granulocytes # (auto) 0.04 K/uL (0.00-0.02); Immature Granulocytes % (auto) 0.6 %; Lymphocytes # (auto) 0.72 K/uL (1.2-3.4); Lymphocytes % (auto) 10.5 %; Mean Corpuscular Hemoglobin 26.8 pg (25-34); Mean Corpuscular Hgb Conc 33.1 g/dL (32-36); Mean Corpuscular Volume 80.9 fL (80-100); Mean Platelet Volume 9.4 fL (7.4-10.4); Monocytes # (auto) 0.48 K/uL (0.11-0.59); Neutrophils # (auto) 5.61 K/uL (1.4-6.5); Neutrophils % (auto) 81.9 %; Platelet Count 231 K/uL (130-400); RDW Coefficient of Variation 14.8 % (11.5-14.5); RDW Standard Deviation 43.6 fL (36.4-46.3); Red Blood Count 5.08 M/uL (4.2-5.4); White Blood Count 6.85 K/uL (4.8-10.8)
[2020-04-06 20:42] LABS: Alanine Aminotransferase 233 U/L (12-78); Albumin Level 3.4 gm/dl (3.4-5.0); Aspartate Aminotransferase 251 U/L (15-37); Blood Urea Nitrogen 9 mg/dl (7-18); Calcium 9.8 mg/dl (8.5-10.1); Carbon Dioxide 33 mmol/L (21-32); Chloride 95 mmol/L (98-107); Est GFR (African American) 80.8; Est GFR (Non-African American) 69.7; Glucose 117 mg/dl (70-99); Lipase 191 U/L (73-393); Potassium 3.7 mmol/L (3.5-5.1); Sodium 136 mmol/L (136-145)
[2020-04-06 20:45] LABS: Albumin Globulin Ratio 0.8 (0.9-2); Alkaline Phosphatase 445 U/L (45-117); Globulin 4.2 gm/dl (2.5-4.0); Total Protein 7.6 gm/dl (6.4-8.2)
--- NOTE | 2020-04-06 21:08 | History & Physical Report ---
Date of Service April 06, 2020 Assessment & Plan (1) Elevated LFTs: Admission and Anticipated Discharge Date Admission Date: -pt. to be admitted to hospital -due to recent cholecystectomy and elevated LFTs, will follow up on CT that has been ordered but or HIDA scan as well: -nuclear medicine contacted and they cannot obtain nuclear tracer this evening, but this will be available in the morning -will keep npo -hydrate with IVF -provide anti-emetics -as she was d/c on antibiotic, will place on IV zosyn -additional recommendations will be based on the results of the pending studies History of Present Illness Chief Complaint: Persistent Nausea Primary Care Provider: Stan Fernández MD 54 year old female who underwent a recent cholecystectomy by Dr. Ellis on 03/30/20. At the time of her surgery, she was noted to have a gangrenous GB. She was d/c home on 04/02/20 on oral augmentin. She notes she was initially tolerating solid food and was not really having N/V. No fevers, shakes, chills noted. She was d/c home with a GILMAR drain in place which was initially not draining much. Over the past 24-48 hours she has noticed persistent nausea and vomiting. In addtion her rain output has increased to about 200 cc the past 24 hours--the drainage was a brownish color. In the ED, labs revealed elevation of her LFTs. The ED physician ordered at CT scan of her abdomen which is pending. At he edilma of my exam she was in no distress. Allergies Allergy/AdvReac Type Severity Reaction Status Date / Time latex Allergy Rash Verified 04/06/20 20:22 Home Medications Home Medications Medication Instructions Recorded Confirmed Type cholecalciferol (vitamin D3) 25 1,000 units PO DAILY cap 05/29/19 04/06/20 History mcg (1,000 unit) capsule cyanocobalamin (vitamin B-12) 1,000 mcg PO DAILY tab 05/29/19 04/06/20 History 1,000 mcg tablet,extended release metformin 1,000 mg tablet 1,000 mg PO BID #180 tab 01/24/20 04/06/20 Rx amoxicillin-pot clavulanate 1 tab PO BID #14 tab 04/02/20 04/06/20 Rx [Augmentin] Selenaaglhung PenaPen U-100 Insulin 38 - 40 units SQ BID MDD 90 04/06/20 04/06/20 History UNITS/DAY hydrochlorothiazide 25 mg PO QAM 04/06/20 04/06/20 History liraglutide 1.8 mg SUBCUT QAM 04/06/20 04/06/20 History ondansetron HCl [Zofran] 4 mg PO Q8H PRN 04/06/20 04/06/20 History oxycodone 5 - 10 mg PO Q6H PRN 04/06/20 04/06/20 History ramipril 10 mg PO QAM 04/06/20 04/06/20 History rosuvastatin 5 mg PO QAM 04/06/20 04/06/20 History Past Med/Surg History Medical History Controlled type 2 diabetes mellitus, with long-term current use of insulin Dyslipidemia Essential hypertension Left knee DJD Obesity Proteinuria due to type 2 diabetes mellitus Shingles Surgical History History of incision and drainage abdominal wall abscess--panniculitis History of tonsillectomy Hx laparoscopic cholecystectomy (03/30/20) Laparoscopic cholecystectomy with drainage. Dr. Ellis 03/30/2020 Family History Aunt Colorectal cancer Father H/O coronary artery bypass surgery age 70 Cardiac disorder Diabetes Gallbladder disease Hypertension Sister Gallbladder disease Mother Hypothyroidism Social History Smoking Status: Never smoker Second Hand Exposure: No; Hx Alcohol Use: No Hx Substance Use: No Preferred Language: Sami Communication Ability: Effective Visual Impairment: No Limitations Hearing Ability: Normal Beliefs That Will Affect Care: None marital status: Single Current Living Situation: Parent, Family and Other Current Living Situation Comment: patients father and daughter live with her current occupational status: 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 Feels Safe at Home: Yes Childhood Exposure to Second-Hand Smoke: No Dental Care, Regularly: No Physical Activity Frequency: Daily Seatbelt Use: always Sunscreen Use: Yes Review of Systems Constitutional: no fever and no chills Eyes: no diplopia Ear, Nose, Mouth, Throat: no ear pain Respiratory: no cough and no dyspnea Cardiovascular: no chest pain Gastrointestinal: + abdominal pain (minor), + nausea and + vomiting Genitourinary: no dysuria Musculoskeletal: no back pain Integumentary: no rash Neurologic: no localized weakness Physical Exam Constitutional: well developed and well nourished; no acute distress Eyes: + anicteric sclerae ENMT: Ears: no hearing impairment sublingual jaundice noted Neck: trachea midline Respiratory: normal respiratory effort, lungs clear to auscultation Cardiovascular: Rate/Rhythm: regular rate and regular rhythm Gastrointestinal (Abdomen): Percussion/Palpation: + abdomen tender (RUQ--minimal ) and abdomen soft laparoscopic incisions are C/D/I Musculoskeletal: no calf pain Skin: no rashes, warm and dry Neurologic: moves all extremities Psychiatric: A+Ox3, euthymic affect Results & Data Results & Data ([facility]) Vital Signs (Past 12 Hours) Vital Signs Temp Pulse Resp BP Pulse Ox 04/06/20 20:31 87 14 174/100 H 97 04/06/20 20:10 87 18 96 04/06/20 19:24 37.1 C 97 H 18 96 Supervising Physician Co-Signing Physician Notes As per Juan Hicks physician boilermaker's assistant Resting comfortable at this time but would like something for pain as needed The abdomen is soft not distended minimal right upper quadrant discomfort CT scan is pending E[place]Flores drain right upper quadrant bilious in nature Unable to do HIDA scan until tomorrow for no isotope at this time Clinically the patient has a bile leak and possibly a common bile duct stone based on the elevated liver function tests and bilirubin Systemic antibiotics given keep n.p.o. after midnight most likely ERCP in the morning All questions were answered PG Care Time/CCT Total # of Minutes Spent Total Time Spent with Patient: Total time spent is greater than 50% in coordination of care (as documented) at patient's floor/unit and/or counseling patient: Coding Level of Care Code None Diagnoses Elevated LFTs R79.89
[2020-04-06 21:13] LABS: Appearance Urine Clear (Clear); Blood Urine Negative (Negative); Color Urine Yellow; Glucose Urine UA Negative (Negative); Ketones Urine Negative (Negative); Leukocyte Esterase Urine Negative (Negative); Nitrite Urine Negative (Negative); Protein Urine Negative (Negative); Urobilinogen Urine Negative (Negative); pH Urine 7.5 (4.5-7.5)
[2020-04-06 21:14] LABS: Bilirubin Urine 1+ (Negative)
[2020-04-06 21:15] LABS: Ictotest Urine Positive (Negative)
[2020-04-06] MEDS ORDERED: PROCHLORPERAZINE 2 ML IV ONE (21:33)
[2020-04-06] MEDS ORDERED: IOVERSOL 100ml IV ONE (22:46)
[2020-04-06] MEDS ORDERED: MoRPHine SULFATE 2 MG/ML CARP IV PRN (23:11)
[2020-04-06] MEDS ORDERED: PIPERACILL/TAZOBAC CONSULT ACTIVE PRN (23:11)
[2020-04-07] MEDS ORDERED: PATIENT'S HEIGHT AND/OR WEIGHT NEEDED SCH (00:15)
[2020-04-07] MEDS ORDERED: PIPERACILLIN/TAZOBACTAM 3.375 GM in DEXTROSE 5% 100 ML IV ONE (00:15)
[2020-04-07] MEDS: ONDANSETRON INJ 2 MG/ML 2 ML VIAL IV PRN ×2 (00:29→04:35)
[2020-04-07] MEDS: SODIUM CHLORIDE 0.9% 1000ML 1,000 ML IV SCH ×3 (00:29→20:44)
[2020-04-07] MEDS ORDERED: PROCHLORPERAZINE 5 MG in SYRINGE 4 ML IV PRN (05:49)
[2020-04-07 06:07] LABS: Hematocrit (blood only) 42.5 % (37-47); Hemoglobin 13.8 g/dL (12.0-16.0); Immature Granulocytes # (auto) 0.03 K/uL (0.00-0.02); Immature Granulocytes % (auto) 0.3 %; Lymphocytes # (auto) 0.52 K/uL (1.2-3.4); Mean Corpuscular Hemoglobin 26.7 pg (25-34); Mean Corpuscular Volume 82.2 fL (80-100); Mean Platelet Volume 9.9 fL (7.4-10.4); Monocytes # (auto) 1.12 K/uL (0.11-0.59); Monocytes % (auto) 10.8 %; Neutrophils # (auto) 8.74 K/uL (1.4-6.5); Neutrophils % (auto) 83.9 %; Platelet Count 223 K/uL (130-400); RDW Standard Deviation 45.2 fL (36.4-46.3); Red Blood Count 5.17 M/uL (4.2-5.4); White Blood Count 10.41 K/uL (4.8-10.8)
[2020-04-07 06:11] LABS: Mean Corpuscular Hgb Conc 32.5 g/dL (32-36)
[2020-04-07] MEDS: PIPERACILLIN/TAZOBACTAM 4.5 GM in DEXTROSE 5% 100 ML IV SCH ×3 (06:34→21:42)
[2020-04-07 06:37] LABS: Albumin Globulin Ratio 0.8 (0.9-2); Albumin Level 3.1 gm/dl (3.4-5.0); BUN Creatinine Ratio 9.6 (10-20); Bilirubin Direct 4.8 mg/dl (0-0.2); Bilirubin,Total 6.3 mg/dl (0.2-1); Calcium 9.4 mg/dl (8.5-10.1); Creatinine Clr Calc Pharmacy 77.2 ml/min; Est GFR (African American) 72.2; Est GFR (Non-African American) 62.3; Globulin 4.1 gm/dl (2.5-4.0); Potassium 3.9 mmol/L (3.5-5.1); Total Protein 7.2 gm/dl (6.4-8.2)
[2020-04-07] MEDS ORDERED: PROMETHAZINE HCL 12.5 MG in SODIUM CHLORIDE 0.9% 50 ML IV PRN (06:37)
[2020-04-07] MEDS ORDERED: PROMETHAZINE HCL 25 MG in SODIUM CHLORIDE 0.9% 50 ML IV PRN (06:37)
--- NOTE | 2020-04-07 07:34 | CT Scan Report ---
ABDOMEN AND PELVIS CT WITH IV AND ORAL CONTRAST CT DOSE: 1756.33 mGy.cm HISTORY: Acute right upper quadrant abdominal pain rt sided abd pain s/p eula 1 wk ago TECHNIQUE: Multiaxial CT images of the abdomen and pelvis were performed following the IV administrat ion of 94 cc of Optiray 320 and oral contrast. A dose lowering technique was utilized adhering to th e principles of ALARA. COMPARISON STUDY: CT abdomen and pelvis 03/29/2020 FINDINGS: Clear lung bases. Imaged inferior cardiac chambers are unremarkable with coronary artery calcificatio ns. The spleen is enlarged, 13.5 cm. Mild generalized pancreatic atrophy. Unremarkable adrenal glands . Unremarkable liver. There appears to been interval cholecystectomy and interval. There is a single focus of air noted within the superior aspect of the kingsley hepatis. There is a 6.1 x 5.0 x 6.2 cm ovo id circumscribed fluid attenuating lesion within the kingsley hepatis with mild peripheral enhancement a nd stranding noted along the inferior margin. There is a surgical drainage catheter which passes thro ugh the inferior margin of this collection with the distal tip present 2.5 cm anterior to the anterio r wall. No biliary ductal dilation or biliary filling defects identified. Normal kidneys. Small subcentimeter cyst of the superior pole right kidney. No urolith or obstructive uropathy. Unremarkable uterus and adnexa. No aortic aneurysm or adenopathy. No bowel obstruction. Sc attered air-fluid levels are noted throughout a nondilated large bowel. Visualized appendix is noninf lamed. Bones appear intact. Degenerative changes of the spine, pelvis and hips. IMPRESSION: 1. Postoperative changes suggestive of interval cholecystectomy. There is an ovoid fluid-filled struc ture of the kingsley hepatis measuring up to 6.2 cm with mild peripheral enhancement along the inferior margin along with associated mild stranding/trace free fluid. A surgical drainage catheter passes thr ough the inferior margin of this structure. A biloma is the primary differential consideration. Corre late with laboratory analysis to exclude abscess. 2. No bowel obstruction or bowel wall thickening. ACT 112: Negative or not required by law. The above report was generated using voice recognition software. It may contain grammatical, syntax o r spelling errors. Electronically signed by: Pb Hennessy M.D. 04/07/2020 7:33 AM
[2020-04-07] MEDS ORDERED: GLUCAGON FOR INJ 1 MG VIAL SQ PRN (07:37)
[2020-04-07] MEDS ORDERED: DEXTROSE 50% 50 ML SYRINGE IV PRN (07:37)
[2020-04-07] MEDS ORDERED: GLUCOSE 10 TABS/TUBE PO PRN (07:37)
[2020-04-07] MEDS ORDERED: CARBOHYDRATES FOR HYPOGLYCEMIA PO PRN (07:37)
[2020-04-07] MEDS ORDERED: GLUCOSE 40% GEL 15 GM TUBE PO PRN (07:37)
[2020-04-07] MEDS ORDERED: PHARMACY GLYCEMIC MGMT CONSULT PRN (07:43)
[2020-04-07] MEDS ORDERED: INSULIN ASPART 100 UNITS/ML 3 ML PEN SC SCH (08:00)
[2020-04-07] MEDS ORDERED: INSULIN GLARGINE SOLOSTAR 100 UNITS/ML 3 ML PEN SC ONE ×3 (08:00→21:00)
--- NOTE | 2020-04-07 08:47 | Pharmacy Report ---
Glycemic Control Consultation - Date of Service April 07, 2020 - Scope Scope: Glycemic Pharmacist consulted for glycemic control and to write orders per [facility] inpatient glycemic control protocol. - Objective Weight: 111.9 kg Accuchecks BSG (last 24hrs): 04/06/20 04/07/20 04/07/20 20:10 00:45 05:46 Glucose 117 H 186 H POC Glucose 130 H Laboratory Data (last 24hrs): 04/06/20 04/07/20 20:10 05:46 Potassium 3.7 3.9 Carbon Dioxide 33 H 31 Anion Gap 8.0 7.0 Creatinine 0.93 1.02 Est Cr Clr Drug Dosing Not Reportable 77.2 - Recent Pertinent Medications Outpatient Anti-diabetic Regimen: * Basaglar 38-40 units BID * Metformin 1000 mg PO BIDM * Victoza 1.8 mg SC daily * A1c = 6.4 % (03/30/20) Risk Factors for Insulin Resistance: * Infection: Zosyn 4.5 g IV q8h * IVF: Normal saline @125 mL/hr * Recent Surgery: 03/30/20 - laparoscopic cholecystectomy * Diet: NPO - ERCP today - Assessment & Plan Assessment & Plan: ASSESSMENT: * RYAN is a 54 year old female who presented to [facility] ED with persistent nausea and vomiting x 24-48 hours. * POD #8 s/p laparoscopic cholecystectomy (gangrenous gallbladder) * Pharmacy consulted for glycemic management during this recent admission - will use this data to guide treatment decisions * Patient NPO today for ERCP, Zosyn ordered empirically for possible gastrointestinal infection * Fasting BSG this morning of 186 mg/dL -> no basal insulin received last evening * Will give Lantus 20 units (~50% of home AM Basaglar dose) due to NPO status and reassess postoperatively PLAN FOR INPATIENT GLYCEMIC CONTROL: * Holding outpatient diabetes medications (metformin and Victoza) * Basal insulin * Lantus 20 units x 1 this morning * Lantus scale this evening (20-40 units - see EHR for details) * Bolus insulin * NovoLog per scale ACHS or Q6hrs while NPO * Goal Range: Low 110 mg/dL - High 140 mg/dL * Correction Factor: 20 mg/dL/unit * Nutritional / Prandial insulin per carb ratio of 1 unit per 7 grams CHO consumed * Please note that the plan above was derived based on current level of insulin resistance and hospital stress. These recommendations are appropriate for inpatient admission only. Plan of care upon discharge will need to be reassessed to avoid potential outpatient hypo/hyperglycemia. Thank you.
--- NOTE | 2020-04-07 09:32 | Gastrointestinal Consultation ---
Date of Consultation April 07, 2020 Assessment & Plan (1) Elevated LFTs: 54 y/o female s/p recent CCY with gangrenous GB, admitted with n/v, elevated LFTs which worsened overnight with abd pain this AM. She remains on empric ABX. Presentation concerning for biliary stone/sludge Vs bile leak. - Keep NPO - IVF - Analgesia PRN - Antiemetics PRN - ERCP today - Further recommendations to follow procedure Thank you for allowing us to participate in the care of this patient. Please call with any acute changes, questions or concerns. Please see addendum below with additional recommendation from my supervising physician. (2) Abdominal pain: (3) Nausea & vomiting: (4) History of laparoscopic cholecystectomy: Supervising Physician Co-Signing Physician Notes I performed a history and physical examination of the patient today, including specifically on physical exam - soft abdomen, slightly tender. I have discussed the patient's management with the advanced practitioner. Please refer to the nurse practitioner's note for the documented findings and plan of care. 54 yrs old female patient admitted with abdominal pain and jaundice, labs with elevated bilirubin, Imaging with 6 cm collection ? biloma, perc drain in good place. ? Bile leak Vs retained stone. Recommend: ERCP today, explained risk, benefit and alternatives and patient agreed. History of Present Illness Attending Physician: Luan Aparicio MD History of Present Illness Pt is a 54 y/o female with PMHx T2DM, HLD, HTN and others s/p cholecystectomy by Dr. Ellis on 03/30/20, (GB was gangrenous), DC'd home with GILMAR drain and maintained on Augmentin, readmitted over the weekend with N/V, and LFTs noted to be elevated in an obstructive pattern. She was placed on empiric ABX and CTAP noted "Postoperative changes suggestive of interval cholecystectomy. There is an ovoid fluid-filled structure of the kingsley hepatis measuring up to 6.2 cm with mild peripheral enhancement along the inferior margin along with associated mild stranding/trace free fluid. A surgical drainage catheter passes through the in ferior margin of this structure. A biloma is the primary differential consideration." This AM she experienced severe epigastric/RUQ pain, currently being medicated with analgesia. LFTs continue to worsen, tbili 6.3, transaminases in the 300's, ALP 450. Denies nausea, vomiting, chest pain, dyspnea, fever, dysuria. Allergies Allergy/AdvReac Type Severity Reaction Status Date / Time latex Allergy Rash Verified 04/06/20 20:22 Home Medications Home Medications Medication Instructions Recorded Confirmed Type cholecalciferol (vitamin D3) 25 1,000 units PO DAILY cap 05/29/19 04/06/20 History mcg (1,000 unit) capsule cyanocobalamin (vitamin B-12) 1,000 mcg PO DAILY tab 05/29/19 04/06/20 History 1,000 mcg tablet,extended release metformin 1,000 mg tablet 1,000 mg PO BID #180 tab 01/24/20 04/06/20 Rx amoxicillin-pot clavulanate 1 tab PO BID #14 tab 04/02/20 04/06/20 Rx [Augmentin] Basaglar KwikPen U-100 Insulin 38 - 40 units SQ BID MDD 90 04/06/20 04/06/20 History UNITS/DAY hydrochlorothiazide 25 mg PO QAM 04/06/20 04/06/20 History liraglutide 1.8 mg SUBCUT QAM 04/06/20 04/06/20 History ondansetron HCl [Zofran] 4 mg PO Q8H PRN 04/06/20 04/06/20 History oxycodone 5 - 10 mg PO Q6H PRN 04/06/20 04/06/20 History ramipril 10 mg PO QAM 04/06/20 04/06/20 History rosuvastatin 5 mg PO QAM 04/06/20 04/06/20 History Patient History Medical History Controlled type 2 diabetes mellitus, with long-term current use of insulin Dyslipidemia Essential hypertension Left knee DJD Obesity Proteinuria due to type 2 diabetes mellitus Shingles Surgical History History of incision and drainage abdominal wall abscess--panniculitis History of tonsillectomy Hx laparoscopic cholecystectomy (03/30/20) Laparoscopic cholecystectomy with drainage. Dr. Ellis 03/30/2020 Family History Aunt Colorectal cancer Father H/O coronary artery bypass surgery age 70 Cardiac disorder Diabetes Gallbladder disease Hypertension Sister Gallbladder disease Mother Hypothyroidism Social History Smoking Status: Never smoker Second Hand Exposure: No; Do You Dip or Chew Tobacco: No; Tobacco Cessation Education Requested by Patient: No Hx Alcohol Use: No Hx Substance Use: No Preferred Language: Bangladeshi Communication Ability: Effective Visual Impairment: No Limitations Hearing Ability: Normal Order Editor Required: No Beliefs That Will Affect Care: None marital status: Single Current Living Situation: Alone Current Living Situation Comment: patients father and daughter live with her current occupational status: employed 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 [employer] Other Information That Helps Us Care for You: No Feels Safe at Home: Yes Safety Concerns: Feels Safe At This Time Childhood Exposure to Second-Hand Smoke: No Dental Care, Regularly: No Physical Activity Frequency: Daily Seatbelt Use: always Sunscreen Use: Yes Review of Systems Review of Systems: All systems reviewed & are unremarkable except as noted in HPI & below Constitutional: no fever, no chills, no fatigue and no weight loss Eyes: no eye pain and no worsening vision Ear, Nose, Mouth, Throat: no tinnitus, no dizziness, no nasal discharge and no epistaxis Respiratory: no cough, no dyspnea, no dyspnea on exertion and no wheezing Cardiovascular: no chest pain, no orthopnea, no palpitations and no edema Gastrointestinal: as per Subjective / HPI Genitourinary: no dysuria, no urinary frequency, no urinary incontinence and no hematuria Musculoskeletal: no stiffness and no myalgia Neurologic: no localized weakness, no paralysis, no tremor(s) and no headache(s) Endocrine: no polydipsia and no polyuria Hematologic / Lymphatic: no easy bleeding and no night sweats Physical Exam Constitutional: WD/WN, vitals as above Eyes: + anicteric sclerae Respiratory: normal respiratory effort Cardiovascular: Rate/Rhythm: regular rate and regular rhythm Gastrointestinal (Abdomen): Inspection/Auscultation: abdomen normal to inspection Percussion/Palpation: + abdomen tender (moderately tender to RUQ/epigastric, + guarding, no rebound) and abdomen soft GILMAR drain in place with small amt brownish liquid in bag Skin: no rashes, warm and dry Psychiatric: A+Ox3, euthymic affect Results & Data (MN) Vital Signs (Past 12 Hours) Vital Signs Temp Pulse Pulse Resp BP BP Pulse Ox 04/07/20 07:16 37.0 C 92 H 16 140/81 95 04/07/20 00:00 37.2 C 97 H 18 150/80 H 96 04/06/20 22:37 90 20 171/96 H 94 04/06/20 22:31 90 20 171/96 H 94 04/06/20 22:01 93 H 22 146/94 H 97 04/06/20 21:31 86 14 142/74 H 94 04/06/20 21:30 85 15 Laboratory Results 04/07/20 04/07/20 04/07/20 Range/Units 05:46 05:46 00:45 WBC 10.41 (4.8-10.8) K/uL RBC 5.17 (4.2-5.4) M/uL Hgb 13.8 (12.0-16.0) g/dL Hct 42.5 (37-47) % MCV 82.2 (80-100) fL MCH 26.7 (25-34) pg MCHC 32.5 (32-36) g/dL RDW Std Deviation 45.2 (36.4-46.3) fL RDW Coeff of Jim 15.0 H (11.5-14.5) % Plt Count 223 (130-400) K/uL MPV 9.9 (7.4-10.4) fL Immature Gran % (Auto) 0.3 % Neut % (Auto) 83.9 % Lymph % (Auto) 5.0 % Norton % (Auto) 10.8 % Eos % (Auto) 0.0 % Baso % (Auto) 0.0 % Neut # (Auto) 8.74 H (1.4-6.5) K/uL Lymph # (Auto) 0.52 L (1.2-3.4) K/uL Norton # (Auto) 1.12 H (0.11-0.59) K/uL Eos # (Auto) 0.00 (0-0.5) K/uL Baso # (Auto) 0.00 (0-0.2) K/uL Immature Gran # (Auto) 0.03 H (0.00-0.02) K/uL Sodium 137 (136-145) mmol/L Potassium 3.9 (3.5-5.1) mmol/L Chloride 99 (98-107) mmol/L Carbon Dioxide 31 (21-32) mmol/L Anion Gap 7.0 (3-11) BUN 10 (7-18) mg/dl Creatinine 1.02 (0.6-1.2) mg/dl Est Cr Clr Drug Dosing 77.2 Est GFR ( Amer) 72.2 Est GFR (Non-Af Amer) 62.3 BUN/Creatinine Ratio 9.6 L (10-20) Glucose 186 H (70-99) mg/dl POC Glucose 130 H (70-99) mg/dl Calcium 9.4 (8.5-10.1) mg/dl Total Bilirubin 6.3 H (0.2-1) mg/dl Direct Bilirubin 4.8 H (0-0.2) mg/dl AST 336 H (15-37) U/L ALT 311 H (12-78) U/L Alkaline Phosphatase 450 H (45-117) U/L Total Protein 7.2 (6.4-8.2) gm/dl Albumin 3.1 L (3.4-5.0) gm/dl Globulin 4.1 H (2.5-4.0) gm/dl Albumin/Globulin Ratio 0.8 L (0.9-2) Lipase (73-393) U/L Urine Color Urine Appearance (Clear) Urine pH (4.5-7.5) Ur Specific Patterson (1.000-1.030) Urine Protein (Negative) Urine Glucose (UA) (Negative) Urine Ketones (Negative) Urine Blood (Negative) Urine Nitrite (Negative) Urine Bilirubin (Negative) Urine Urobilinogen (Negative) Ur Leukocyte Esterase (Negative) 04/06/20 04/06/20 04/06/20 Range/Units 20:55 20:10 20:10 WBC (4.8-10.8) K/uL RBC (4.2-5.4) M/uL Hgb (12.0-16.0) g/dL Hct (37-47) % MCV (80-100) fL MCH (25-34) pg MCHC (32-36) g/dL RDW Std Deviation (36.4-46.3) fL RDW Coeff of Jim (11.5-14.5) % Plt Count (130-400) K/uL MPV (7.4-10.4) fL Immature Gran % (Auto) % Neut % (Auto) % Lymph % (Auto) % Norton % (Auto) % Eos % (Auto) % Baso % (Auto) % Neut # (Auto) (1.4-6.5) K/uL Lymph # (Auto) (1.2-3.4) K/uL Norton # (Auto) (0.11-0.59) K/uL Eos # (Auto) (0-0.5) K/uL Baso # (Auto) (0-0.2) K/uL Immature Gran # (Auto) (0.00-0.02) K/uL Sodium 136 (136-145) mmol/L Potassium 3.7 (3.5-5.1) mmol/L Chloride 95 L (98-107) mmol/L Carbon Dioxide 33 H (21-32) mmol/L Anion Gap 8.0 (3-11) BUN 9 (7-18) mg/dl Creatinine 0.93 (0.6-1.2) mg/dl Est Cr Clr Drug Dosing Not Reportable Est GFR ( Amer) 80.8 Est GFR (Non-Af Amer) 69.7 BUN/Creatinine Ratio 10.0 (10-20) Glucose 117 H (70-99) mg/dl POC Glucose (70-99) mg/dl Calcium 9.8 (8.5-10.1) mg/dl Total Bilirubin 5.0 H (0.2-1) mg/dl Direct Bilirubin 4.1 H (0-0.2) mg/dl AST 251 H (15-37) U/L ALT 233 H (12-78) U/L Alkaline Phosphatase 445 H (45-117) U/L Total Protein 7.6 (6.4-8.2) gm/dl Albumin 3.4 (3.4-5.0) gm/dl Globulin 4.2 H (2.5-4.0) gm/dl Albumin/Globulin Ratio 0.8 L (0.9-2) Lipase 191 (73-393) U/L Urine Color Yellow Urine Appearance Clear (Clear) Urine pH 7.5 (4.5-7.5) Ur Specific Patterson 1.010 (1.000-1.030) Urine Protein Negative (Negative) Urine Glucose (UA) Negative (Negative) Urine Ketones Negative (Negative) Urine Blood Negative (Negative) Urine Nitrite Negative (Negative) Urine Bilirubin 1+ H (Negative) Urine Urobilinogen Negative (Negative) Ur Leukocyte Esterase Negative (Negative) 04/06/20 Range/Units 20:10 WBC 6.85 (4.8-10.8) K/uL RBC 5.08 (4.2-5.4) M/uL Hgb 13.6 (12.0-16.0) g/dL Hct 41.1 (37-47) % MCV 80.9 (80-100) fL MCH 26.8 (25-34) pg MCHC 33.1 (32-36) g/dL RDW Std Deviation 43.6 (36.4-46.3) fL RDW Coeff of Jim 14.8 H (11.5-14.5) % Plt Count 231 (130-400) K/uL MPV 9.4 (7.4-10.4) fL Immature Gran % (Auto) 0.6 % Neut % (Auto) 81.9 % Lymph % (Auto) 10.5 % Norton % (Auto) 7.0 % Eos % (Auto) 0.0 % Baso % (Auto) 0.0 % Neut # (Auto) 5.61 (1.4-6.5) K/uL Lymph # (Auto) 0.72 L (1.2-3.4) K/uL Norton # (Auto) 0.48 (0.11-0.59) K/uL Eos # (Auto) 0.00 (0-0.5) K/uL Baso # (Auto) 0.00 (0-0.2) K/uL Immature Gran # (Auto) 0.04 H (0.00-0.02) K/uL Sodium (136-145) mmol/L Potassium (3.5-5.1) mmol/L Chloride (98-107) mmol/L Carbon Dioxide (21-32) mmol/L Anion Gap (3-11) BUN (7-18) mg/dl Creatinine (0.6-1.2) mg/dl Est Cr Clr Drug Dosing Est GFR ( Amer) Est GFR (Non-Af Amer) BUN/Creatinine Ratio (10-20) Glucose (70-99) mg/dl POC Glucose (70-99) mg/dl Calcium (8.5-10.1) mg/dl Total Bilirubin (0.2-1) mg/dl Direct Bilirubin (0-0.2) mg/dl AST (15-37) U/L ALT (12-78) U/L Alkaline Phosphatase (45-117) U/L Total Protein (6.4-8.2) gm/dl Albumin (3.4-5.0) gm/dl Globulin (2.5-4.0) gm/dl Albumin/Globulin Ratio (0.9-2) Lipase (73-393) U/L Urine Color Urine Appearance (Clear) Urine pH (4.5-7.5) Ur Specific Patterson (1.000-1.030) Urine Protein (Negative) Urine Glucose (UA) (Negative) Urine Ketones (Negative) Urine Blood (Negative) Urine Nitrite (Negative) Urine Bilirubin (Negative) Urine Urobilinogen (Negative) Ur Leukocyte Esterase (Negative) Diagnostic Findings CTAP ABDOMEN AND PELVIS CT WITH IV AND ORAL CONTRAST FINDINGS: Clear lung bases. Imaged inferior cardiac chambers are unremarkable with coronary artery calcifications. The spleen is enlarged, 13.5 cm. Mild generalized pancreatic atrophy. Unremarkable adrenal glands. Unremarkable liver. There appears to been interval cholecystectomy and interval. There is a single focus of air noted within the superior aspect of the kingsley hepatis. There is a 6.1 x 5.0 x 6.2 cm ovoid circumscribed fluid attenuating lesion within the kingsley hepatis with mild peripheral enhancement and stranding noted along the inferior margin. There is a surgical drainage catheter which passes through the inferior margin of this collection with the distal tip present 2.5 cm anterior to the anterior wall. No biliary ductal dilation or biliary filling defects identified. Normal kidneys. Small subcentimeter cyst of the superior pole right kidney. No urolith or obstructive uropathy. Unremarkable uterus and adnexa. No aortic aneurysm or adenopathy. No bowel obstruction. Scattered air-fluid levels are noted throughout a nondilated large bowel. Visualized appendix is noninflamed. Bones appear intact. Degenerative changes of the spine, pelvis and hips. IMPRESSION: 1. Postoperative changes suggestive of interval cholecystectomy. There is an ovoid fluid-filled structure of the kingsley hepatis measuring up to 6.2 cm with mi ld peripheral enhancement along the inferior margin along with associated mild stranding/trace free fluid. A surgical drainage catheter passes through the inferior margin of this structure. A biloma is the primary differential consideration. Correlate with laboratory analysis to exclude abscess. 2. No bowel obstruction or bowel wall thickening. (1) Nausea & vomiting Vomiting Intractability: non-intractable Vomiting type: unspecified Qualifie d Code(s): R11.2 - Nausea with vomiting, unspecified (2) Abdominal pain Abdominal location: right upper quadrant Qualified Code(s): R10.11 - Right upper quadrant pain
[2020-04-07] MEDS: MoRPHine SULFATE 2 MG/ML CARP IV PRN ×2 (09:58→11:34)
[2020-04-07] MEDS ORDERED: HydrALAZINE HCL 20 MG/ML VIAL IV PRN (10:09)
--- NOTE | 2020-04-07 10:15 | Hospitalist Consultation ---
Date of Consultation April 07, 2020 Assessment & Plan (1) Elevated LFTs: * s/p cholecsytectomy for gangrenous GB 03/30 discharged 04/[address] Ellis. Developed n/v and now with abdominal pain, Tbili 6.3 (Direct 4.8), AST 336, ALT 311, Alk Phos 450 * CTA/P with biloma as primary differential, 6.2cm ovoid fluid-filled structure at [facility] hepatis with mild peripheral enhancement along inferior margin with standing/trace free fluid * Management per surgery * GI on consult * NPO Patient to undergo ERCP this afternoon as unable to have HIDA on pain medication Increased morphine to Q1H as patient with worsening pain during examination Phenergan prn nausea per surgical service WBC 10.4k, h/h 13.8/42.5, Plt 233. On Zosyn (day 2 of therapy) as she was discharged on Augmentin 04/02 NSS @ 125cc/hr Trend labs (2) Controlled type 2 diabetes mellitus, with long-term current use of insulin: * Pharmacy consulted for glycemic control. * Outpatient metformin, Victoza, Basaglar * ISS while inpatient -- utilizing 50% basal as she is NPO * Accuchecks * Morning glucose 186 -- last A1c 6.4 on 03/30 * A1c added to AM labs * Continue to monitor (3) Nausea & vomiting: * Treat above (4) Abdominal pain: * Worsening -- increased morphine as above (5) History of laparoscopic cholecystectomy: * Noted. On 03/30 (6) Dyslipidemia: * Rosuvastatin on hold (7) Essential hypertension: * BP stable 140/81 * HCTZ 25mg, Ramipril 10mg on hold as patient NPO * Will utilize hydralazine prn SBP >180 or DBP >100 * Continue to monitor (8) DVT prophylaxis: * SCDs * Chemoprophylaxis per primary service -- none currently as she is going for ERCP later today Supervising Physician Co-Signing Physician Notes Patient was seen and examined independently I discussed the case with Janice Rodriguez PAC I reviewed pertinent past medical social family history and also the plan of care and agree with the plan of care. Patient is here with likely a bile leak postop. She is taken for an ERCP this afternoon. Patient history of diabetes long-term use of insulin also typically on metformin and Victoza as an outpatient. Sliding scale be utilized and 50% of her basal rate is ordered by pharmacy glycemic consult For hypertension patient to be takes hydrochlorothiazide and ramipril hydralazine will use if needed pending her fluid balance may consider holding the hydrochlorothiazide Her exam she was lethargic from opiate administration for pain control. Her abdomen is markedly uncomfortable although she did have an acute abdomen was tender to examination and she had hypoactive bowel sounds Surgical team is taking her for suggested ERCP to try to consider if stent will be placed for common bile duct possible leak. ERCP did confirm a leak from the cystic duct remnant a stent was placed in the common bile duct and also in the pancreatic duct. Purulence was seen and acute cholangitis was suspected Any exceptions will be noted below History of Present Illness Reason for Consultation: Medical Management Requesting Physician: Dr Aparicio Attending Physician: Luan Aparicio MD History of Present Illness 54 year old female with PMHx significant for DM II (on insulin), HLD, HTN, obesity presented for cholecystectomy by Dr. Ellis on 03/30/20 where she was noted to have gangrenous gallbladder and was discharged with GILMAR drain on 03/02 on oral Augmentin. She states she was doing fairly well until Monday into Monday where she started having increased nausea and vomiting and in the last 48 hours she has had an increase in her drainage, appearing brownish in color. She states initially it was nausea and vomiting and not as much pain, more soreness, but this morning she is having worsening abdominal pain and unable to get comfortable in bed. Pain severe despite morphine after 8am this morning. States associated right shoulder pain and back pain. Worse with movement. Did have bowel movement this morning. She states she is unable to get the HIDA scan due to receiving pain medication and that they plan on doing the ERCP later today but is not sure of the exact time yet. 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 Does have some minor lower right sided chest discomfort as she has felt previously due to fractured rib. No current nausea or vomiting, but increased pain is main concern at this time. Discussed holding her outpatient DM medications and will consult pharmacy for glycemic control as she is on Victoza, metformin, and Basaglar outpatient. Allergies Allergy/AdvReac Type Severity Reaction Status Date / Time latex Allergy Rash Verified 04/06/20 20:22 Home Medications Home Medications Medication Instructions Recorded Confirmed Type cholecalciferol (vitamin D3) 25 1,000 units PO DAILY cap 05/29/19 04/06/20 History mcg (1,000 unit) capsule cyanocobalamin (vitamin B-12) 1,000 mcg PO DAILY tab 05/29/19 04/06/20 History 1,000 mcg tablet,extended release metformin 1,000 mg tablet 1,000 mg PO BID #180 tab 01/24/20 04/06/20 Rx amoxicillin-pot clavulanate 1 tab PO BID #14 tab 04/02/20 04/06/20 Rx [Augmentin] Basaglar KwikPen U-100 Insulin 38 - 40 units SQ BID MDD 90 04/06/20 04/06/20 History UNITS/DAY hydrochlorothiazide 25 mg PO QAM 04/06/20 04/06/20 History liraglutide 1.8 mg SUBCUT QAM 04/06/20 04/06/20 History ondansetron HCl [Zofran] 4 mg PO Q8H PRN 04/06/20 04/06/20 History oxycodone 5 - 10 mg PO Q6H PRN 04/06/20 04/06/20 History ramipril 10 mg PO QAM 04/06/20 04/06/20 History rosuvastatin 5 mg PO QAM 04/06/20 04/06/20 History Patient History Medical History Controlled type 2 diabetes mellitus, with long-term current use of insulin Dyslipidemia Essential hypertension Left knee DJD Obesity Proteinuria due to type 2 diabetes mellitus Shingles Surgical History History of incision and drainage abdominal wall abscess--panniculitis History of tonsillectomy Hx laparoscopic cholecystectomy (03/30/20) Laparoscopic cholecystectomy with drainage. Dr. Ellis 03/30/2020 Family History Aunt Colorectal cancer Father H/O coronary artery bypass surgery age 70 Cardiac disorder Diabetes Gallbladder disease Hypertension Sister Gallbladder disease Mother Hypothyroidism Social History Smoking Status: Never smoker Second Hand Exposure: No; Do You Dip or Chew Tobacco: No; Tobacco Cessation Education Requested by Patient: No Hx Alcohol Use: No Hx Substance Use: No Preferred Language: Iranian Communication Ability: Effective Visual Impairment: No Limitations Hearing Ability: Normal Psychology Teacher Required: No Beliefs That Will Affect Care: None marital status: Single Current Living Situation: Alone Current Living Situation Comment: patients father and daughter live with her current occupational status: employed 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 Other Information That Helps Us Care for You: No Feels Safe at Home: Yes Safety Concerns: Feels Safe At This Time Childhood Exposure to Second-Hand Smoke: No Dental Care, Regularly: No Physical Activity Frequency: Daily Seatbelt Use: always Sunscreen Use: Yes Review of Systems Review of Systems: All systems reviewed & are unremarkable except as noted in HPI & below Constitutional: + chills, + malaise and + anorexia Ear, Nose, Mouth, Throat: no sore throat and no dysphagia Respiratory: no cough and no dyspnea Cardiovascular: no chest pain and no palpitations Additional Comments: rib pain Gastrointestinal: + abdominal pain (epigastric/RUQ/right flank) Genitourinary: no dysuria and no hematuria Musculoskeletal: + back pain and + body aches Integumentary: no rash and no lesions Neurologic: no paralysis and no loss of sensation Endocrine: + fatigue and + heat intolerance Allergy / Immunological: no cough and no dyspnea Physical Exam Constitutional: well developed, well nourished and + obese; no acute distress and + uncomfortable Eyes: + anicteric sclerae and PERRL ENMT: mmm Neck: normal visual inspection Respiratory: normal respiratory effort, lungs clear to auscultation Auscultation: + diminished lung sounds Cardiovascular: RRR, no murmur, no edema Gastrointestinal (Abdomen): Inspection/Auscultation: normal bowel sounds Percussion/Palpation: + abdomen tender (moderate tenderness to palpation RUQ/epigastric region), + guarding and abdomen soft; abdomen not rigid GILMAR with brown drainage, 10cc Musculoskeletal: no cyanosis or clubbing, extremities motor strength 5/5 Skin: warm, clammy Neurologic: PERRL, EOMI, accommodation nl, no face palsy, no dysarthria Psychiatric: Orientation: alert and oriented x 3 Lymphatic: no cervical or axillary lymphadenopathy Results & Data Results & Data ([facility]) Vital Signs (Past 12 Hours) Vital Signs Temp Pulse Pulse Resp BP BP Pulse Ox 04/07/20 07:16 37.0 C 92 H 16 140/81 95 04/07/20 00:00 37.2 C 97 H 18 150/80 H 96 04/06/20 22:37 90 20 171/96 H 94 04/06/20 22:31 90 20 171/96 H 94 04/06/20 22:01 93 H 22 146/94 H 97 Laboratory Results 04/07/20 04/07/20 04/07/20 Range/Units 09:21 05:46 05:46 WBC 10.41 (4.8-10.8) K/uL RBC 5.17 (4.2-5.4) M/uL Hgb 13.8 (12.0-16.0) g/dL Hct 42.5 (37-47) % MCV 82.2 (80-100) fL MCH 26.7 (25-34) pg MCHC 32.5 (32-36) g/dL RDW Std Deviation 45.2 (36.4-46.3) fL RDW Coeff of Jim 15.0 H (11.5-14.5) % Plt Count 223 (130-400) K/uL MPV 9.9 (7.4-10.4) fL Immature Gran % (Auto) 0.3 % Neut % (Auto) 83.9 % Lymph % (Auto) 5.0 % [place] % (Auto) 10.8 % Eos % (Auto) 0.0 % Baso % (Auto) 0.0 % Neut # (Auto) 8.74 H (1.4-6.5) K/uL Lymph # (Auto) 0.52 L (1.2-3.4) K/uL [place] # (Auto) 1.12 H (0.11-0.59) K/uL Eos # (Auto) 0.00 (0-0.5) K/uL Baso # (Auto) 0.00 (0-0.2) K/uL Immature Gran # (Auto) 0.03 H (0.00-0.02) K/uL Sodium 137 (136-145) mmol/L Potassium 3.9 (3.5-5.1) mmol/L Chloride 99 (98-107) mmol/L Carbon Dioxide 31 (21-32) mmol/L Anion Gap 7.0 (3-11) BUN 10 (7-18) mg/dl Creatinine 1.02 (0.6-1.2) mg/dl Est Cr Clr Drug Dosing 77.2 Est GFR ( Amer) 72.2 Est GFR (Non-Af Amer) 62.3 BUN/Creatinine Ratio 9.6 L (10-20) Glucose 186 H (70-99) mg/dl POC Glucose 225 H (70-99) mg/dl Calcium 9.4 (8.5-10.1) mg/dl Total Bilirubin 6.3 H (0.2-1) mg/dl Direct Bilirubin 4.8 H (0-0.2) mg/dl AST 336 H (15-37) U/L ALT 311 H (12-78) U/L Alkaline Phosphatase 450 H (45-117) U/L Total Protein 7.2 (6.4-8.2) gm/dl Albumin 3.1 L (3.4-5.0) gm/dl Globulin 4.1 H (2.5-4.0) gm/dl Albumin/Globulin Ratio 0.8 L (0.9-2) Lipase (73-393) U/L Urine Color Urine Appearance (Clear) Urine pH (4.5-7.5) Ur Specific [place] (1.000-1.030) Urine Protein (Negative) Urine Glucose (UA) (Negative) Urine Ketones (Negative) Urine Blood (Negative) Urine Nitrite (Negative) Urine Bilirubin (Negative) Urine Urobilinogen (Negative) Ur Leukocyte Esterase (Negative) 04/07/20 04/06/20 04/06/20 Range/Units 00:45 20:55 20:10 WBC (4.8-10.8) K/uL RBC (4.2-5.4) M/uL Hgb (12.0-16.0) g/dL Hct (37-47) % MCV (80-100) fL MCH (25-34) pg MCHC (32-36) g/dL RDW Std Deviation (36.4-46.3) fL RDW Coeff of Jim (11.5-14.5) % Plt Count (130-400) K/uL MPV (7.4-10.4) fL Immature Gran % (Auto) % Neut % (Auto) % Lymph % (Auto) % [place] % (Auto) % Eos % (Auto) % Baso % (Auto) % Neut # (Auto) (1.4-6.5) K/uL Lymph # (Auto) (1.2-3.4) K/uL [place] # (Auto) (0.11-0.59) K/uL Eos # (Auto) (0-0.5) K/uL Baso # (Auto) (0-0.2) K/uL Immature Gran # (Auto) (0.00-0.02) K/uL Sodium (136-145) mmol/L Potassium (3.5-5.1) mmol/L Chloride (98-107) mmol/L Carbon Dioxide (21-32) mmol/L Anion Gap (3-11) BUN (7-18) mg/dl Creatinine (0.6-1.2) mg/dl Est Cr Clr Drug Dosing Est GFR ( Amer) Est GFR (Non-Af Amer) BUN/Creatinine Ratio (10-20) Glucose (70-99) mg/dl POC Glucose 130 H (70-99) mg/dl Calcium (8.5-10.1) mg/dl Total Bilirubin (0.2-1) mg/dl Direct Bilirubin 4.1 H (0-0.2) mg/dl AST (15-37) U/L ALT (12-78) U/L Alkaline Phosphatase (45-117) U/L Total Protein (6.4-8.2) gm/dl Albumin (3.4-5.0) gm/dl Globulin (2.5-4.0) gm/dl Albumin/Globulin Ratio (0.9-2) Lipase (73-393) U/L Urine Color Yellow Urine Appearance Clear (Clear) Urine pH 7.5 (4.5-7.5) Ur Specific [place] 1.010 (1.000-1.030) Urine Protein Negative (Negative) Urine Glucose (UA) Negative (Negative) Urine Ketones Negative (Negative) Urine Blood Negative (Negative) Urine Nitrite Negative (Negative) Urine Bilirubin 1+ H (Negative) Urine Urobilinogen Negative (Negative) Ur Leukocyte Esterase Negative (Negative) 04/06/20 04/06/20 Range/Units 20:10 20:10 WBC 6.85 (4.8-10.8) K/uL RBC 5.08 (4.2-5.4) M/uL Hgb 13.6 (12.0-16.0) g/dL Hct 41.1 (37-47) % MCV 80.9 (80-100) fL MCH 26.8 (25-34) pg MCHC 33.1 (32-36) g/dL RDW Std Deviation 43.6 (36.4-46.3) fL RDW Coeff of Jim 14.8 H (11.5-14.5) % Plt Count 231 (130-400) K/uL MPV 9.4 (7.4-10.4) fL Immature Gran % (Auto) 0.6 % Neut % (Auto) 81.9 % Lymph % (Auto) 10.5 % [place] % (Auto) 7.0 % Eos % (Auto) 0.0 % Baso % (Auto) 0.0 % Neut # (Auto) 5.61 (1.4-6.5) K/uL Lymph # (Auto) 0.72 L (1.2-3.4) K/uL [place] # (Auto) 0.48 (0.11-0.59) K/uL Eos # (Auto) 0.00 (0-0.5) K/uL Baso # (Auto) 0.00 (0-0.2) K/uL Immature Gran # (Auto) 0.04 H (0.00-0.02) K/uL Sodium 136 (136-145) mmol/L Potassium 3.7 (3.5-5.1) mmol/L Chloride 95 L (98-107) mmol/L Carbon Dioxide 33 H (21-32) mmol/L Anion Gap 8.0 (3-11) BUN 9 (7-18) mg/dl Creatinine 0.93 (0.6-1.2) mg/dl Est Cr Clr Drug Dosing Not Reportable Est GFR ( Amer) 80.8 Est GFR (Non-Af Amer) 69.7 BUN/Creatinine Ratio 10.0 (10-20) Glucose 117 H (70-99) mg/dl POC Glucose (70-99) mg/dl Calcium 9.8 (8.5-10.1) mg/dl Total Bilirubin 5.0 H (0.2-1) mg/dl Direct Bilirubin (0-0.2) mg/dl AST 251 H (15-37) U/L ALT 233 H (12-78) U/L Alkaline Phosphatase 445 H (45-117) U/L Total Protein 7.6 (6.4-8.2) gm/dl Albumin 3.4 (3.4-5.0) gm/dl Globulin 4.2 H (2.5-4.0) gm/dl Albumin/Globulin Ratio 0.8 L (0.9-2) Lipase 191 (73-393) U/L Urine Color Urine Appearance (Clear) Urine pH (4.5-7.5) Ur Specific [place] (1.000-1.030) Urine Protein (Negative) Urine Glucose (UA) (Negative) Urine Ketones (Negative) Urine Blood (Negative) Urine Nitrite (Negative) Urine Bilirubin (Negative) Urine Urobilinogen (Negative) Ur Leukocyte Esterase (Negative) Diagnostic Findings CT Abdomen/Pelvis 1. Postoperative changes suggestive of interval cholecystectomy. There is an ovoid fluid-filled structure of the kingsley hepatis measuring up to 6.2 cm with mild peripheral enhancement along the inferior margin along with associated mild stranding/trace free fluid. A surgical drainage catheter passes through the inferior margin of this structure. A biloma is the primary differential consideration. Correlate with laboratory analysis to exclude abscess. 2. No bowel obstruction or bowel wall thickening. PG Care Time/CCT Total # of Minutes Spent Total Time Spent with Patient: Total time spent is greater than 50% in coordination of care (as documented) at patient's floor/unit and/or counseling patient: Coding Level of Care Code 03994 Inpt Consult Level 3 Diagnoses Elevated LFTs R79.89 Controlled type 2 diabetes mellitus, with long-term current use of insulin E11.9; Z79.4 Nausea & vomiting R11.2 Vomiting Intractability: non-intractable Vomiting type: unspecified Abdominal pain R10.11 Abdominal location: right upper quadrant History of laparoscopic cholecystectomy Z90.49 Dyslipidemia E78.5 Essential hypertension I10 DVT prophylaxis Z29.9 (1) Nausea & vomiting Vomiting Intractability: non-intractable Vomiting type: unspecified Qualified Code(s): R11.2 - Nausea with vomiting, unspecified (2) Abdominal pain Abdominal location: right upper quadrant Qualified Code(s): R10.11 - Right upper quadrant pain
[2020-04-07] MEDS: INSULIN ASPART 100 UNITS/ML 3 ML PEN SC SCH ×4 (10:17→21:38)
[2020-04-07] MEDS ORDERED: IOVERSOL 50ml IV ONE (11:49)
--- NOTE | 2020-04-07 11:54 | Anesthesiology Consultation ---
Date of Service April 07, 2020 Assessment & Plan (1) Encounter for pre-operative examination: Chart Review Chart Review: Acceptable Risk for Surgery and Patient NOT seen in Pre Admission Testing covid neg 04/07/2020. Consults Requested none History Surgery Operation Date: 04/07/20 08:55 Proposed Procedures p Endoscopic Retrograde Cholangiopancreatogram - Shelbie Guillory MD Height/Weight Height: 5 ft 4 in Weight: 111.9 kg Allergies Allergy/AdvReac Type Severity Reaction Status Date / Time latex Allergy Rash Verified 04/06/20 20:22 Medications Home Medications Medication Instructions Recorded Confirmed Last Taken cholecalciferol (vitamin D3) 25 1,000 units PO DAILY cap 05/29/19 04/06/20 Unknown mcg (1,000 unit) capsule cyanocobalamin (vitamin B-12) 1,000 mcg PO DAILY tab 05/29/19 04/06/20 Unknown 1,000 mcg tablet,extended release metformin 1,000 mg tablet 1,000 mg PO BID #180 tab 01/24/20 04/06/20 Unknown amoxicillin-pot clavulanate 1 tab PO BID #14 tab 04/02/20 04/06/20 Unknown [Augmentin] Basaglar KwikPen U-100 Insulin 38 - 40 units SQ BID MDD 90 04/06/20 04/06/20 Un known UNITS/DAY hydrochlorothiazide 25 mg PO QAM 04/06/20 04/06/20 Unknown liraglutide 1.8 mg SUBCUT QAM 04/06/20 04/06/20 Unknown ondansetron HCl [Zofran] 4 mg PO Q8H PRN 04/06/20 04/06/20 Unknown oxycodone 5 - 10 mg PO Q6H PRN 04/06/20 04/06/20 Unknown ramipril 10 mg PO QAM 04/06/20 04/06/20 Unknown rosuvastatin 5 mg PO QAM 04/06/20 04/06/20 Unknown Active Medications Generic Name Dose Route Start Last Admin Trade Name Freq PRN Reason Stop Dose Admin Piperacillin Sod/Tazobactam 120 mls @ 30 mls/hr 04/07/20 06:00 04/07/20 11:12 Sod 4.5 gm/ Dextrose IV 04/17/20 05:59 Infused Q8H LUZ Infusion Protocol Sodium Chloride 1,000 mls @ 125 mls/hr 04/06/20 23:11 04/07/20 10:22 Nss 1000ml IV 05/06/20 23:10 125 mls/hr .Q8H LUZ Administration Insulin Aspart 0 units 04/07/20 08:00 04/07/20 12:49 Insulin Aspart 100 Units/Ml 3 Ml Pen SC 05/07/20 07:59 Not Given Q6 LUZ Morphine Sulfate 2 mg 04/07/20 09:47 04/07/20 11:34 Morphine Sulfate 2 Mg/Ml Carp IV 04/20/20 23:10 2 mg Q1H PRN Administration Pain Past Medical History Medical History Controlled type 2 diabetes mellitus, with long-term current use of insulin Dyslipidemia Essential hypertension Left knee DJD Obesity Proteinuria due to type 2 diabetes mellitus Shingles Exercise / Class Metabolic Activity II 4-5 Yardwork/Stairs/Walk up hill Past Family History Family History Aunt Colorectal cancer Father H/O coronary artery bypass surgery age 70 Cardiac disorder Diabetes Gallbladder disease Hypertension Sister Gallbladder disease Mother Hypothyroidism Past Surgical History Surgical History History of incision and drainage abdominal wall abscess--panniculitis History of tonsillectomy Hx laparoscopic cholecystectomy (03/30/20) Laparoscopic cholecystectomy with drainage. Dr. Ellis 03/30/2020 Past Anesthesia History No Hx of Anesthesia Complications and No Family Hx of Anesthesia Complications Social History Smoking Status: Never smoker Do You Dip or Chew Tobacco: No Hx Alcohol Use: No Hx Substance Use: No Physical Exam Vital Signs Last Vital Signs Temp 37.0 C 04/07/20 11:05 Pulse 88 04/07/20 12:56 Resp 18 04/07/20 12:56 BP 167/73 H 04/07/20 12:56 Pulse Ox 94 04/07/20 12:56 Testing Laboratory Results 04/07/20 05:46 04/07/20 05:46 Urine Color Yellow 04/06/20 20:55 Urine Appearance Clear (Clear) 04/06/20 20:55 Urine pH 7.5 (4.5-7.5) 04/06/20 20:55 Ur Specific [place] 1.010 (1.000-1.030) 04/06/20 20:55 Urine Protein Negative (Negative) 04/06/20 20:55 Urine Glucose (UA) Negative (Negative) 04/06/20 20:55 Urine Ketones Negative (Negative) 04/06/20 20:55 Urine Nitrite Negative (Negative) 04/06/20 20:55 Ur Leukocyte Esterase Negative (Negative) 04/06/20 20:55 04/07/20 04/07/20 11:54 09:21 POC Glucose 236 H 225 H Electrocardiogram Date: 03/29/20 Findings: + NSR @ (66) Chest X-Ray Date: 03/29/20 Findings: + NAD
[2020-04-07] MEDS ORDERED: PROPOFOL IV EMULSION 10 MG/ML 20 ML VIAL IV ONE (12:51)
[2020-04-07] MEDS ORDERED: fentaNYL citrate 100 MCG/2 ML VIAL ONE (12:51)
[2020-04-07] MEDS ORDERED: MIDAZOLAM HCL 1 MG/ML 2ML VIAL ONE (12:51)
[2020-04-07] MEDS ORDERED: LIDOCAINE HCL 2% 2 ML VIAL/AMP(20MG/ML) INFIL ONE (12:51)
[2020-04-07] MEDS ORDERED: ePHEDrine sulfate 50 MG/ML AMP IV PRN (13:11)
[2020-04-07] MEDS ORDERED: ATROPINE SULFATE 0.1 MG/ML 10ML SYR IV PRN (13:11)
[2020-04-07] MEDS ORDERED: ONDANSETRON INJ 2 MG/ML 2 ML VIAL IV PRN (13:11)
--- NOTE | 2020-04-07 13:12 | History & Physical Bridge Note ---
Date of Service April 07, 2020 History & Physical Bridge Note I have examined the patient, reviewed the History & Physical and in the interval since the performance of the History & Physical I have noted the following changes of clinical significance: no changes noted
[2020-04-07] MEDS ORDERED: DEXAMETHASONE SOD INJ 4 MG/ML VIAL ONE (13:31)
[2020-04-07] MEDS ORDERED: ONDANSETRON INJ 2 MG/ML 2 ML VIAL ONE (13:31)
[2020-04-07] MEDS ORDERED: INDOMETHACIN 50 MG SUPP PR ONE (13:33)
--- NOTE | 2020-04-07 14:10 | Operative Report ---
Post Operative Report Pre & Post Diagnosis Operation Date: 04/07/20 08:55 Pre-Op Diagnosis: Biliary stone/sludge VS bile leak Post-Op Diagnosis: Bile leak and multiple stones I identified the patient and participated in the time-out.: Yes Procedure Operation Date: 04/07/20 08:55 Actual Procedures p Endoscopic Retrograde Cholangiopancreatogram with stone extraction and placement of bilary & PD stent - Shelbie Guillory MD Surgeon Shelbie Guillory MD Mixer Blender None Estimated Blood Loss 0 Findings See Below (CBD stones, Papillary stenosis, Bile leak) Specimens None Description of Procedure ERCP with stent I attest to the content of the Intraoperative Record and any orders documented therein. Any exceptions are noted below.
--- NOTE | 2020-04-07 14:25 | GI REPORT ---
Patient Name: Effie Franklin Procedure Date: 04/07/2020 1:12 PM Date of : 1965 Admit Type: Inpatient Age: 54 Gender: Female Attending MD: Shelbie Guillory MD Procedure: ERCP Providers: Shelbie Guillory MD Referring MD: Mykel Bose Indications: Abnormal abdominal CT, Suspected bile duct stone(s), Treatment of bile leak Medicines: General Anesthesia Complications: No immediate complications. Estimated Blood Loss: Estimated blood loss: none. Procedure: Pre-Anesthesia Assessment: - Prior to the procedure, a History and Physical was performed, and patient medications, allergies and sensitivities were reviewed. The patient's tolerance of previous anesthesia was reviewed. - The risks and benefits of the procedure and the sedation options and risks were discussed with the patient. All questions were answered and informed consent was obtained. - Patient identification and proposed procedure were verified prior to the procedure by the physician and the nurse. The procedure was verified in the procedure room. - Pre-procedure physical examination revealed no contraindications to sedation. After obtaining informed consent, the scope was passed under direct vision. Throughout the procedure, the patient's blood pressure, pulse, and oxygen saturations were monitored continuously. The Scope was introduced through the mouth, and advanced to the duodenum and used to inject contrast into the bile duct. The ERCP was accomplished without difficulty. The patient tolerated the procedure well. Findings: A product development engineer film of the abdomen was obtained. One percutaneous drain ending in the Right upper quadrant was seen. Surgical clips, consistent with a previous cholecystectomy, were seen in the area of the right upper quadrant of the abdomen. The esophagus was successfully intubated under direct vision. The scope was advanced to a normal major papilla in the descending duodenum without detailed examination of the pharynx, larynx and associated structures, and upper GI tract. The upper GI tract was grossly normal. The ventral pancreatic duct was inadvertently cannulated with the short-nosed traction sphincterotome and guidewire. The guidewire was kept in place to assist in biliary ductal cannulation. A 0.035 inch straight standard wire was passed into the biliary tree. The Fusion OMNI sphincterotome was passed over the guidewire and the bile duct was then deeply cannulated. Contrast was injected. I personally interpreted the bile duct images. Ductal flow of contrast was adequate. Image quality was adequate. Contrast extended to the main bile duct. Opacification of the entire biliary tree was successful. The maximum diameter of the ducts was 8 mm. The lower third of the main bile duct contained filling defect(s) thought to be a stone. Extravasation of contrast originating from the cystic duct remnant was observed. Biliary sphincterotomy was made with a monofilament traction (standard) sphincterotome using ERBE electrocautery. There was no post-sphincterotomy bleeding. The biliary tree was swept with an 11.5 mm balloon starting at the bifurcation. A few black stones were removed. No stones remained. Pus was swept from the duct. One 5 Fr by 9 cm plastic pancreatic stent with a single external pigtail and no internal flaps was placed into the ventral pancreatic duct. Clear fluid flowed through the stent. The stent was in good position. One 8 mm by 8 cm covered metal biliary stent was placed into the common bile duct. Bile flowed through the stent. The stent was in good position. Indomethacin 100 mg was given via suppository to decrease the risk of post-ERCP pancreatitis (PEP). Impression: - A bile leak from the cystic duct remnant was found. - Choledocholithiasis was found. Complete removal was accomplished by biliary sphincterotomy and balloon extraction. - The biliary tree was swept and pus was found consistent with acute cholangitis. - One plastic pancreatic stent was placed into the ventral pancreatic duct and Indomethacin given to decrease risk of post-ERCP pancreatitis. . - One covered metal biliary stent was placed into the common bile duct. Recommendation: - Return patient to [facility] for [facility] care. - Repeat ERCP in 8 weeks to remove stents. - Monitor LFTs and drain output. Shelbie Guillory MD 04/07/2020 2:24:35 PM This report has been signed electronically. Note Initiated On: 04/07/2020 1:12 PM Number of Addenda: 0 I attest to the content of the Intraoperative Record and orders documented therein, exceptions below {[id number]}
--- NOTE | 2020-04-07 14:30 | Fluoroscopy Report ---
[place] ERCP biliary ductal CLINICAL HISTORY: ERCP COMPARISON STUDY: CT of the abdomen and pelvis April 06, 2020. Right quadrant ultrasound March 022019. FLUOROSCOPY TIME: 55 seconds. FLUOROSCOPIC IMAGES: 8 FINDINGS: Right upper quadrant surgical drain is noted. There are cholecystectomy clips. Fluoroscopy was provided during ERCP. These images demonstrate cannulation of the common bile duct as well as the pancreatic duct. Contrast extravasation from the cystic duct stump is noted. This represents a bile leak. Balloon sweep through the common bile duct was performed. Biliary stent is noted on final image . There may be a pancreatic ductal stent. IMPRESSION: 1. Fluoroscopy provided during ERCP which demonstration of a bile leak, as described above. 2. Placement of biliary and suspected pancreatic ductal stents. ACT 112: Negative or not required by law. Electronically signed by: Jeremy Weiss M.D. 04/07/2020 2:28 PM
[2020-04-07] MEDS: fentaNYL citrate 100 MCG/2 ML VIAL IV PRN ×2 (14:52→14:57)
--- NOTE | 2020-04-07 14:55 | Anesthesiology Progress Note ---
Date of Service April 07, 2020 Anesthesia Post Procedure Vital Signs Vital Signs: Temp Pulse Pulse Pulse Resp BP BP 04/07/20 14:45 86 24 159/56 H 04/07/20 14:35 89 20 170/66 H 04/07/20 14:26 36.6 C 92 H 23 180/79 H 04/07/20 12:56 88 18 04/07/20 11:05 37.0 C 91 H 17 04/07/20 07:16 37.0 C 92 H 16 04/07/20 00:00 37.2 C 97 H 18 04/06/20 22:37 90 20 171/96 H 04/06/20 22:31 90 20 171/96 H 04/06/20 22:01 93 H 22 146/94 H 04/06/20 21:31 86 14 142/74 H 04/06/20 21:30 85 15 04/06/20 21:01 84 19 157/90 H 04/06/20 20:31 87 14 174/100 H 04/06/20 20:10 87 18 04/06/20 19:24 37.1 C 97 H 18 BP Pulse Ox 04/07/20 14:45 95 04/07/20 14:35 97 04/07/20 14:26 99 04/07/20 12:56 167/73 H 94 04/07/20 11:05 147/86 H 90 04/07/20 07:16 140/81 95 04/07/20 00:00 150/80 H 96 04/06/20 22:37 94 04/06/20 22:31 94 04/06/20 22:01 97 04/06/20 21:31 94 04/06/20 21:30 04/06/20 21:01 96 04/06/20 20:31 97 04/06/20 20:10 96 04/06/20 19:24 96 Transfer of Care Handoff Completed per policy Notes Mental Status: alert / awake / arousable and participated in evaluation Patient Amnestic to Procedure: Yes Nausea / Vomiting: adequately controlled Pain: adequately controlled Airway Patency, RR, SpO2: stable & adequate BP & HR: stable & adequate Hydration State: stable & adequate Anesthetic Complications: no major complications apparent and Pt Satisfied with anesthetic care
[2020-04-07] MEDS ORDERED: Nursing to Pharmacy Communication SCH (17:30)
[2020-04-07] MEDS ORDERED: INSULIN GLARGINE SOLOSTAR 100 UNITS/ML 3 ML PEN SC SCH (21:00)
[2020-04-08] MEDS: SODIUM CHLORIDE 0.9% 1000ML 1,000 ML IV SCH ×3 (04:37→21:46)
--- NOTE | 2020-04-08 05:37 | Surgery Progress Note ---
Date of Service April 08, 2020 Assessment & Plan (1) History of endoscopic retrograde cholangiopancreatography: Status post ERCP finding choledocholithiasis and bile leak at the cystic duct Stents placed-for removal in approximately 8 weeks GILMAR drainage seems to have diminished Feeling better with better pain control some feeling of bloating advance diet and activity Decrease IV fluids for now Probably needs at least 1-2 more days in the hospital Admission and Anticipated Discharge Date Admission Date: April 06, 2020 Results & Data ([facility]) Vital Signs (Past 12 Hours) Vital Signs Temp Pulse Resp BP BP Pulse Ox 04/08/20 04:10 36.6 C 81 16 145/79 H 98 04/07/20 22:56 36.7 C 81 18 171/87 H 96 04/07/20 18:30 36.7 C 79 18 142/81 H 96 PG Care Time/CCT Total # of Minutes Spent Total Time Spent with Patient: Total time spent is greater than 50% in coordination of care (as documented) at patient's floor/unit and/or counseling patient: Coding Level of Care Code None Diagnoses History of endoscopic retrograde cholangiopancreatography Z98.890
[2020-04-08] MEDS: PIPERACILLIN/TAZOBACTAM 4.5 GM in DEXTROSE 5% 100 ML IV SCH ×3 (05:52→21:38)
[2020-04-08 06:18] LABS: Hematocrit (blood only) 40.7 % (37-47); Hemoglobin 12.8 g/dL (12.0-16.0); Mean Corpuscular Hemoglobin 25.7 pg (25-34); Mean Corpuscular Hgb Conc 31.4 g/dL (32-36); Mean Corpuscular Volume 81.6 fL (80-100); Mean Platelet Volume 9.6 fL (7.4-10.4); Platelet Count 247 K/uL (130-400); RDW Coefficient of Variation 15.3 % (11.5-14.5); RDW Standard Deviation 45.4 fL (36.4-46.3); Red Blood Count 4.99 M/uL (4.2-5.4); White Blood Count 10.39 K/uL (4.8-10.8)
[2020-04-08 06:53] LABS: Albumin Level 2.9 gm/dl (3.4-5.0); BUN Creatinine Ratio 14.9 (10-20); Bilirubin,Total 2.1 mg/dl (0.2-1); Calcium 8.8 mg/dl (8.5-10.1); Est GFR (African American) 65.2; Est GFR (Non-African American) 56.3; Potassium 3.4 mmol/L (3.5-5.1); Total Protein 6.9 gm/dl (6.4-8.2)
[2020-04-08 07:45] LABS: Estimated Average Glucose 134 mg/dl; Hemoglobin A1C 6.3 % (4.5-5.6)
--- NOTE | 2020-04-08 08:35 | Gastroenterology Progress Note ---
Date of Service April 08, 2020 Assessment & Plan (1) Bile leak, postoperative: 54 y/o female who is s/p CCY 03/30/20 and underwent ERCP yesterday for nausea/vomiting/abd pain, elevated LFTs, tibili, and CT findings concerning for biloma. She was found to have a bile leak from the cystic duct remnant, as well as choledocholithiasis; stone removal was accomplished by biliary sphincterotomy and balloon extraction; pus was found in the biliary tree c/w acute cholangitis. 1 CBD and 1 PD stent were placed. Today, LFTs, tbili trending down; abd pain is resolved, and she has scant GILMAR drain output. Abd is soft; she tolerated breakfast. - Diet as tolerated - Continue empiric ABX - Repeat ERCP in 8 weeks to remove stents; our office will arrange for her - Would continue to monitor/trend LFTs, tbili and drain output - Will defer mgmt of GILMAR drain/post-op care to surgery team - If post-cholecystectomy (bile acid) diarrhea occurs, can use Questran/Colestipol PRN - Pt also advised it is possible to get recurrent choledocholithiasis in the future and she is aware - GI will sign off, please call with questions (2) Choledocholithiasis: Admission and Anticipated Discharge Date Admission Date: April 06, 2020 Supervising Physician Co-Signing Physician Notes I performed a history and physical examination of the patient today, including specifically on physical exam - soft abdomen. I have discussed the patient's management with the advanced practitioner. Please refer to the nurse practitioner's note for the documented findings and plan of care. Doing great today. Pain resolved. No significant output from her GILMAR drain. LFTs improved. Recall GI if needed. Subjective Pt seen and examined today. Pain is relieved and she is feeling much better. Tolerated breakfast. No nausea, vomiting. Having some loose stools, no melena, hematochezia. LFTs, tbili trending down. Minimal output noted in her GILMAR drain. Physical Exam Constitutional: WD/WN, vitals as above Respiratory: normal respiratory effort Gastrointestinal (Abdomen): Inspection/Auscultation: abdomen normal to inspection Percussion/Palpation: abdomen soft; abdomen nontender GILMAR drain in place, scant brown output Skin: no rashes, warm and dry Psychiatric: A+Ox3, euthymic affect Results & Data ([place]) Vital Signs (Past 12 Hours) Vital Signs Temp Pulse Resp BP BP Pulse Ox 04/08/20 07:00 36.6 C 77 17 134/72 98 04/08/20 04:10 36.6 C 81 16 145/79 H 98 04/07/20 22:56 36.7 C 81 18 171/87 H 96 Laboratory Results 04/08/20 04/08/20 04/08/20 Range/Units 07:23 05:42 05:42 WBC 10.39 (4.8-10.8) K/uL RBC 4.99 (4.2-5.4) M/uL Hgb 12.8 (12.0-16.0) g/dL Hct 40.7 (37-47) % MCV 81.6 (80-100) fL MCH 25.7 (25-34) pg MCHC 31.4 L (32-36) g/dL RDW Std Deviation 45.4 (36.4-46.3) fL RDW Coeff of Jim 15.3 H (11.5-14.5) % Plt Count 247 (130-400) K/uL MPV 9.6 (7.4-10.4) fL Sodium (136-145) mmol/L Potassium (3.5-5.1) mmol/L Chloride (98-107) mmol/L Carbon Dioxide (21-32) mmol/L Anion Gap (3-11) BUN (7-18) mg/dl Creatinine (0.6-1.2) mg/dl Est Cr Clr Drug Dosing ml/min Est GFR ( Amer) Est GFR (Non-Af Amer) BUN/Creatinine Ratio (10-20) Glucose (70-99) mg/dl POC Glucose 145 H (70-99) mg/dl Estimat Average Glucose mg/dl Hemoglobin A1c (4.5-5.6) % Calcium (8.5-10.1) mg/dl Magnesium 2.2 (1.8-2.4) mg/dl Total Bilirubin (0.2-1) mg/dl Direct Bilirubin (0-0.2) mg/dl AST (15-37) U/L ALT (12-78) U/L Alkaline Phosphatase (45-117) U/L Total Protein (6.4-8.2) gm/dl Albumin (3.4-5.0) gm/dl COVID-19 Eval Order SARS-CoV-2, RNA, NAAT (NEGATIVE) 04/08/20 04/08/20 04/07/20 Range/Units 05:42 05:42 21:31 WBC (4.8-10.8) K/uL RBC (4.2-5.4) M/uL Hgb (12.0-16.0) g/dL Hct (37-47) % MCV (80-100) fL MCH (25-34) pg MCHC (32-36) g/dL RDW Std Deviation (36.4-46.3) fL RDW Coeff of Jim (11.5-14.5) % Plt Count (130-400) K/uL MPV (7.4-10.4) fL Sodium 136 (136-145) mmol/L Potassium 3.4 L (3.5-5.1) mmol/L Chloride 100 (98-107) mmol/L Carbon Dioxide 30 (21-32) mmol/L Anion Gap 6.0 (3-11) BUN 16 D (7-18) mg/dl Creatinine 1.11 (0.6-1.2) mg/dl Est Cr Clr Drug Dosing 71.0 ml/min Est GFR ( Amer) 65.2 Est GFR (Non-Af Amer) 56.3 BUN/Creatinine Ratio 14.9 (10-20) Glucose 134 H (70-99) mg/dl POC Glucose 296 H (70-99) mg/dl Estimat Average Glucose 134 mg/dl Hemoglobin A1c 6.3 H (4.5-5.6) % Calcium 8.8 (8.5-10.1) mg/dl Magnesium (1.8-2.4) mg/dl Total Bilirubin 2.1 H D (0.2-1) mg/dl Direct Bilirubin 1.0 H D (0-0.2) mg/dl AST 89 H (15-37) U/L ALT 218 H (12-78) U/L Alkaline Phosphatase 332 H (45-117) U/L Total Protein 6.9 (6.4-8.2) gm/dl Albumin 2.9 L (3.4-5.0) gm/dl COVID-19 Eval Order SARS-CoV-2, RNA, NAAT (NEGATIVE) 04/07/20 04/07/20 04/07/20 Range/Units 21:28 17:36 14:27 WBC (4.8-10.8) K/uL RBC (4.2-5.4) M/uL Hgb (12.0-16.0) g/dL Hct (37-47) % MCV (80-100) fL MCH (25-34) pg MCHC (32-36) g/dL RDW Std Deviation (36.4-46.3) fL RDW Coeff of Jim (11.5-14.5) % Plt Count (130-400) K/uL MPV (7.4-10.4) fL Sodium (136-145) mmol/L Potassium (3.5-5.1) mmol/L Chloride (98-107) mmol/L Carbon Dioxide (21-32) mmol/L Anion Gap (3-11) BUN (7-18) mg/dl Creatinine (0.6-1.2) mg/dl Est Cr Clr Drug Dosing ml/min Est GFR ( Amer) Est GFR (Non-Af Amer) BUN/Creatinine Ratio (10-20) Glucose (70-99) mg/dl POC Glucose 323 H* 221 H 230 H (70-99) mg/dl Estimat Average Glucose mg/dl Hemoglobin A1c (4.5-5.6) % Calcium (8.5-10.1) mg/dl Magnesium (1.8-2.4) mg/dl Total Bilirubin (0.2-1) mg/dl Direct Bilirubin (0-0.2) mg/dl AST (15-37) U/L ALT (12-78) U/L Alkaline Phosphatase (45-117) U/L Total Protein (6.4-8.2) gm/dl Albumin (3.4-5.0) gm/dl COVID-19 Eval Order SARS-CoV-2, RNA, NAAT (NEGATIVE) 04/07/20 04/07/20 04/07/20 Range/Units 12:00 12:00 11:54 WBC (4.8-10.8) K/uL RBC (4.2-5.4) M/uL Hgb (12.0-16.0) g/dL Hct (37-47) % MCV (80-100) fL MCH (25-34) pg MCHC (32-36) g/dL RDW Std Deviation (36.4-46.3) fL RDW Coeff of Jim (11.5-14.5) % Plt Count (130-400) K/uL MPV (7.4-10.4) fL Sodium (136-145) mmol/L Potassium (3.5-5.1) mmol/L Chloride (98-107) mmol/L Carbon Dioxide (21-32) mmol/L Anion Gap (3-11) BUN (7-18) mg/dl Creatinine (0.6-1.2) mg/dl Est Cr Clr Drug Dosing ml/min Est GFR ( Amer) Est GFR (Non-Af Amer) BUN/Creatinine Ratio (10-20) Glucose (70-99) mg/dl POC Glucose 236 H (70-99) mg/dl Estimat Average Glucose mg/dl Hemoglobin A1c (4.5-5.6) % Calcium (8.5-10.1) mg/dl Magnesium (1.8-2.4) mg/dl Total Bilirubin (0.2-1) mg/dl Direct Bilirubin (0-0.2) mg/dl AST (15-37) U/L ALT (12-78) U/L Alkaline Phosphatase (45-117) U/L Total Protein (6.4-8.2) gm/dl Albumin (3.4-5.0) gm/dl COVID-19 Eval [email or web address] SARS-[facility]-2, RNA, NAAT NEGATIVE (NEGATIVE)
[2020-04-08] MEDS: INSULIN ASPART 100 UNITS/ML 3 ML PEN SC SCH ×4 (08:56→21:35)
[2020-04-08] MEDS ORDERED: POTASSIUM CHLORIDE 20 MEQ TABCR PO STA (08:57)
[2020-04-08] MEDS ORDERED: INSULIN GLARGINE SOLOSTAR 100 UNITS/ML 3 ML PEN SC SCH ×2 (09:00→21:00)
--- NOTE | 2020-04-08 09:13 | Hospitalist Progress Note ---
Date of Service April 08, 2020 Assessment & Plan (1) Choledocholithiasis: * s/p cholecsytectomy for gangrenous GB 03/30 discharged 04/[address] Ellis. Developed n/v with progression of new onset abdominal pain, Tbili 6.3 (Direct 4.8), AST 336, ALT 311, Alk Phos 450 * CTA/P with 6.2cm ovoid fluid-filled structure at [facility] with mild peripheral enhancement along inferior margin with standing/trace free fluid * Management per surgery * GI on consult * s/p ERCP on 04/[address] Guillory -- c/w bile leak from cystic duct remnant, choledocholithiasis found and complete removal accomplished. Biliary tree with pus c/w acute cholangitis. 1 plastic pancreatic stent (plus indomethacin to reduce post-ERCP pancreatitis) and 1 covered metal biliary stent to common bile duct * Diet advanced this morning -- likely to remain additional 1-2 days inpatient * PT/OT/pain management/DVT prophylaxis per primary service Morphine to Q1H as patient with worsening pain during examination on 04/07 Phenergan prn nausea per surgical service On Zosyn (day 3 of therapy) as she was discharged on Augmentin 04/02 NSS @ 80cc/hr LFTs improving --> Tbili 2.1 (6.3), direct 1.0 (4.8), AST 89 (336), ALT 218 (311), alk phos 332 (450) --> continue to trend h/h stable 12.8/40.7 (2) Cholangitis: As above (3) Bile leak, postoperative: As above (4) History of endoscopic retrograde cholangiopancreatography: As above (5) Elevated LFTs: As above, improving (6) Controlled type 2 diabetes mellitus, with long-term current use of insulin: * Pharmacy consulted for glycemic control. * Outpatient metformin, Victoza, Basaglar on hold * ISS/Accuchecks while inpatient --> will need adjusted now that she is no longer NPO. BSG up to 323 last evening * A1c 6.3, down from prior 6.4 on 03/30 * Continue to monitor -- has been 143, 145 today (7) Nausea & vomiting: * Treat above -- resolved (8) Abdominal pain: * Almost resolved (9) History of laparoscopic cholecystectomy: * Noted. On 03/30 (10) Dyslipidemia: * Rosuvastatin on hold (11) Essential hypertension: * BP stable 134/72 * HCTZ 25mg, Ramipril 10mg on hold --> will resume in AM * Will utilize hydralazine prn SBP >180 or DBP >100 * Continue to monitor (12) Hypokalemia: * K 3.2 -- ordered 40meq PO * Mag 2.2 * BMP in am (13) DVT prophylaxis: * SCDs * Chemoprophylaxis per primary service -- none currently ordered Dispo: likely to remain inpatient additional 1-2 days per primary service. Thank you for allowing hospitalist team to participate in the care of Mrs. Franklin. Hospitalist service will follow along. Admission and Anticipated Discharge Date Admission Date: April 06, 2020 Subjective Patient evaluated this morning. Significant improvement of abdominal pain. She describes it as no pain but more of a discomfort/tenderness in upper right/epigastric region. She had some eggs this morning without difficulty but states she did have some bloating, improved after multiple BM this morning. She does note some reflux and had been taking nexium over the counter as an outpatient. Discussed utilizing PPI while inpatient. Mild headache this morning resolved after eating breakfast without administration of Tylenol. She had been reading her book earlier and believes it was from eye strain with her glasses. She states she did not get much sleep last night. Did have some concerns regarding her usual home medications and we discussed resuming her usual medications and holding her blood pressure medications until the morning. Drain output decreased. Denies fever, chills, chest pain, no further shoulder pain, shortness of breath, dysuria. Review of Systems Review of Systems: All systems reviewed & are unremarkable except as noted in HPI & below Physical Exam Constitutional: well developed and well nourished; no acute distress Eyes: + anicteric sclerae and PERRL ENMT: mmm Neck: normal visual inspection Respiratory: normal respiratory effort, lungs clear to auscultation Cardiovascular: RRR, no murmur, no edema Gastrointestinal (Abdomen): Inspection/Auscultation: normal bowel sounds Percussion/Palpation: + abdomen tender (minimally tender RUQ) and abdomen soft; no guarding and abdomen not rigid GILMAR drain with red crusting around site-- no evidence of drainage/leak. incisions with steri-strips. umbilical incision c/d/i, some crusting around sutures Musculoskeletal: no cyanosis or clubbing, extremities motor strength 5/5 Skin: warm, dry Psychiatric: A+Ox3, euthymic affect Lymphatic: no cervical or axillary lymphadenopathy Results & Data Results & Data ([facility]) Vital Signs (Past 12 Hours) Vital Signs Temp Pulse Resp BP BP Pulse Ox 04/08/20 07:00 36.6 C 77 17 134/72 98 04/08/20 04:10 36.6 C 81 16 145/79 H 98 04/07/20 22:56 36.7 C 81 18 171/87 H 96 Laboratory Results 04/08/20 04/08/20 04/08/20 Range/Units 07:23 05:42 05:42 WBC 10.39 (4.8-10.8) K/uL RBC 4.99 (4.2-5.4) M/uL Hgb 12.8 (12.0-16.0) g/dL Hct 40.7 (37-47) % MCV 81.6 (80-100) fL MCH 25.7 (25-34) pg MCHC 31.4 L (32-36) g/dL RDW Std Deviation 45.4 (36.4-46.3) fL RDW Coeff of Jim 15.3 H (11.5-14.5) % Plt Count 247 (130-400) K/uL MPV 9.6 (7.4-10.4) fL Sodium (136-145) mmol/L Potassium (3.5-5.1) mmol/L Chloride (98-107) mmol/L Carbon Dioxide (21-32) mmol/L Anion Gap (3-11) BUN (7-18) mg/dl Creatinine (0.6-1.2) mg/dl Est Cr Clr Drug Dosing ml/min Est GFR ( Amer) Est GFR (Non-Af Amer) BUN/Creatinine Ratio (10-20) Glucose (70-99) mg/dl POC Glucose 145 H (70-99) mg/dl Estimat Average Glucose 134 mg/dl Hemoglobin A1c 6.3 H (4.5-5.6) % Calcium (8.5-10.1) mg/dl Total Bilirubin (0.2-1) mg/dl Direct Bilirubin (0-0.2) mg/dl AST (15-37) U/L ALT (12-78) U/L Alkaline Phosphatase (45-117) U/L Total Protein (6.4-8.2) gm/dl Albumin (3.4-5.0) gm/dl COVID-19 Eval Order SARS-CoV-2, RNA, NAAT (NEGATIVE) 04/08/20 04/07/20 04/07/20 Range/Units 05:42 21:31 21:28 WBC (4.8-10.8) K/uL RBC (4.2-5.4) M/uL Hgb (12.0-16.0) g/dL Hct (37-47) % MCV (80-100) fL MCH (25-34) pg MCHC (32-36) g/dL RDW Std Deviation (36.4-46.3) fL RDW Coeff of Jim (11.5-14.5) % Plt Count (130-400) K/uL MPV (7.4-10.4) fL Sodium 136 (136-145) mmol/L Potassium 3.4 L (3.5-5.1) mmol/L Chloride 100 (98-107) mmol/L Carbon Dioxide 30 (21-32) mmol/L Anion Gap 6.0 (3-11) BUN 16 D (7-18) mg/dl Creatinine 1.11 (0.6-1.2) mg/dl Est Cr Clr Drug Dosing 71.0 ml/min Est GFR ( Amer) 65.2 Est GFR (Non-Af Amer) 56.3 BUN/Creatinine Ratio 14.9 (10-20) Glucose 134 H (70-99) mg/dl POC Glucose 296 H 323 H* (70-99) mg/dl Estimat Average Glucose mg/dl Hemoglobin A1c (4.5-5.6) % Calcium 8.8 (8.5-10.1) mg/dl Total Bilirubin 2.1 H D (0.2-1) mg/dl Direct Bilirubin 1.0 H D (0-0.2) mg/dl AST 89 H (15-37) U/L ALT 218 H (12-78) U/L Alkaline Phosphatase 332 H (45-117) U/L Total Protein 6.9 (6.4-8.2) gm/dl Albumin 2.9 L (3.4-5.0) gm/dl COVID-19 Eval Order SARS-CoV-2, RNA, NAAT (NEGATIVE) 04/07/20 04/07/20 04/07/20 Range/Units 17:36 14:27 12:00 WBC (4.8-10.8) K/uL RBC (4.2-5.4) M/uL Hgb (12.0-16.0) g/dL Hct (37-47) % MCV (80-100) fL MCH (25-34) pg MCHC (32-36) g/dL RDW Std Deviation (36.4-46.3) fL RDW Coeff of Jim (11.5-14.5) % Plt Count (130-400) K/uL MPV (7.4-10.4) fL Sodium (136-145) mmol/L Potassium (3.5-5.1) mmol/L Chloride (98-107) mmol/L Carbon Dioxide (21-32) mmol/L Anion Gap (3-11) BUN (7-18) mg/dl Creatinine (0.6-1.2) mg/dl Est Cr Clr Drug Dosing ml/min Est GFR ( Amer) Est GFR (Non-Af Amer) BUN/Creatinine Ratio (10-20) Glucose (70-99) mg/dl POC Glucose 221 H 230 H (70-99) mg/dl Estimat Average Glucose mg/dl Hemoglobin A1c (4.5-5.6) % Calcium (8.5-10.1) mg/dl Total Bilirubin (0.2-1) mg/dl Direct Bilirubin (0-0.2) mg/dl AST (15-37) U/L ALT (12-78) U/L Alkaline Phosphatase (45-117) U/L Total Protein (6.4-8.2) gm/dl Albumin (3.4-5.0) gm/dl COVID-19 Eval Order SARS-CoV-2, RNA, NAAT NEGATIVE (NEGATIVE) 04/07/20 04/07/20 04/07/20 Range/Units 12:00 11:54 09:21 WBC (4.8-10.8) K/uL RBC (4.2-5.4) M/uL Hgb (12.0-16.0) g/dL Hct (37-47) % MCV (80-100) fL MCH (25-34) pg MCHC (32-36) g/dL RDW Std Deviation (36.4-46.3) fL RDW Coeff of Jim (11.5-14.5) % Plt Count (130-400) K/uL MPV (7.4-10.4) fL Sodium (136-145) mmol/L Potassium (3.5-5.1) mmol/L Chloride (98-107) mmol/L Carbon Dioxide (21-32) mmol/L Anion Gap (3-11) BUN (7-18) mg/dl Creatinine (0.6-1.2) mg/dl Est Cr Clr Drug Dosing ml/min Est GFR ( Amer) Est GFR (Non-Af Amer) BUN/Creatinine Ratio (10-20) Glucose (70-99) mg/dl POC Glucose 236 H 225 H (70-99) mg/dl Estimat Average Glucose mg/dl Hemoglobin A1c (4.5-5.6) % Calcium (8.5-10.1) mg/dl Total Bilirubin (0.2-1) mg/dl Direct Bilirubin (0-0.2) mg/dl AST (15-37) U/L ALT (12-78) U/L Alkaline Phosphatase (45-117) U/L Total Protein (6.4-8.2) gm/dl Albumin (3.4-5.0) gm/dl COVID-19 Eval [facility] SARS-[facility]-2, RNA, NAAT (NEGATIVE) Diagnostic Findings ERCP 04/07 A bile leak from the cystic duct remnant was found. Choledocholithiasis was found. Complete removal was accomplished by biliary sphincterotomy and balloon extraction. The biliary tree was swept and pus was found consistent with acute cholangitis. One plastic pancreatic stent was placed into the ventral pancreatic duct and Indomethacin given to decrease risk of post-ERCP pancreatitis. One covered metal biliary stent was placed into the common bile duct. PG Care Time/CCT Total # of Minutes Spent Total Time Spent with Patient: Total time spent is greater than 50% in coord ination of care (as documented) at patient's floor/unit and/or counseling patient: Coding Level of Care Code 27814 Subseq Hosp Care Lvl 2 Diagnoses Choledocholithiasis K80.50 Cholangitis K83.09 Bile leak, postoperative K91.89; K83.8 History of endoscopic retrograde cholangiopancreatography Z98.890 Elevated LFTs R79.89 Controlled type 2 diabetes mellitus, with long-term current use of insulin E11.9; Z79.4 Nausea & vomiting R11.2 Vomiting Intractability: non-intractable Vomiting type: unspecified Abdominal pain R10.11 Abdominal location: right upper quadrant History of laparoscopic cholecystectomy Z90.49 Dyslipidemia E78.5 Essential hypertension I10 Hypokalemia E87.6 DVT prophylaxis Z29.9 (1) Nausea & vomiting Vomiting Intractability: non-intractable Vomiting type: unspecified Qualified Code(s): R11.2 - Nausea with vomiting, unspecified (2) Abdominal pain Abdominal location: right upper quadrant Qualified Code(s): R10.11 - Right upper quadrant pain
[2020-04-08] MEDS ORDERED: ACETAMINOPHEN 325 MG TAB PO PRN (09:38)
[2020-04-08] MEDS ORDERED: NON-FORMULARY MEDICATION (Cyanocobalamin (Vitamin B-12) 1,000 MCG) PO SCH (11:45)
[2020-04-08] MEDS: PANTOprazole 40 MG TAB PO SCH (12:52)
[2020-04-08] MEDS: CYANOCOBALAMIN 500 MCG TABLET (VITAMIN B-12) PO SCH (12:52)
[2020-04-08] MEDS: CHOLECALCIFEROL 1,000 UNITS 25 MCG TAB PO SCH (12:53)
--- NOTE | 2020-04-08 13:18 | Pharmacy Report ---
Pharmacy Glycemic Short Note 2 - Date of Service April 08, 2020 - Glycemic Short BSG Results (Last 24 hours): 04/07/20 04/07/20 04/07/20 14:27 17:36 21:28 Glucose POC Glucose 230 H 221 H 323 H* 04/07/20 04/08/20 04/08/20 21:31 05:42 07:23 Glucose 134 H POC Glucose 296 H 145 H 04/08/20 11:34 Glucose POC Glucose 143 H OUTPATIENT ANTIDIABETIC REGIMEN: * Basaglar 38-40 units BID * Metformin 1000 mg PO BIDM * Victoza 1.8 mg SC daily * A1c = 6.4 % (03/30/20) ASSESSMENT: 04/08/20 * BSGs yesterday were very poorly controlled 186, 236, 221, 296 mg/dL * Patient did receive 8 mg IV dexamethasone in OR yesterday, which may help to explain this * Novolog tightened with dinner yesterday and continued this morning * Fasting BSG this AM of 145 mg/dL * Received 82 units of insulin yesterday (60 of which was basal) * Will give Lantus 40 units this morning and utilize Lantus scale this evening (to provide at least 60 units) * Now that we are ~24 hours post IV dexamethasone - will slightly loosen CF/carb ratio 04/07/20 * RYAN is a 54 year old female who presented to [facility] ED with persistent nausea and vomiting x 24-48 hours. * POD #8 s/p laparoscopic cholecystectomy (gangrenous gallbladder) * Pharmacy consulted for glycemic management during this recent admission - will use this data to guide treatment decisions * Patient NPO today for ERCP, Zosyn ordered empirically for possible gastrointestinal infection * Fasting BSG this morning of 186 mg/dL -> no basal insulin received last evening * Will give Lantus 20 units (~50% of home AM Basaglar dose) due to NPO status and reassess postoperatively PLAN FOR INPATIENT GLYCEMIC CONTROL: * Hold outpatient oral diabetes medications * Basal insulin * Lantus 40 units SC qAM * Lantus scale (20-30 units) SC HS - see EHR for details * Bolus insulin * NovoLog per scale ACHS or Q6hrs while NPO * Goal Range: Low 110 mg/dL - High 140 mg/dL * Correction Factor: 18 mg/dL/unit * Nutritional / Prandial insulin per carb ratio of 1 unit per 6 grams CHO consumed PLAN FOR DISCHARGE: * HbA1c of 6.4% demonstrates very good glycemic control as an outpatient * Patient can likely be discharged with current outpatient regimen provided she is not experiencing hypoglycemia
[2020-04-09] MEDS: PIPERACILLIN/TAZOBACTAM 4.5 GM in DEXTROSE 5% 100 ML IV SCH ×3 (05:34→22:01)
[2020-04-09 06:12] LABS: Hematocrit (blood only) 35.8 % (37-47); Hemoglobin 11.4 g/dL (12.0-16.0); Mean Corpuscular Hemoglobin 26.1 pg (25-34); Mean Corpuscular Hgb Conc 31.8 g/dL (32-36); Mean Corpuscular Volume 82.1 fL (80-100); Mean Platelet Volume 9.6 fL (7.4-10.4); Platelet Count 192 K/uL (130-400); RDW Coefficient of Variation 15.5 % (11.5-14.5); RDW Standard Deviation 46.3 fL (36.4-46.3); Red Blood Count 4.36 M/uL (4.2-5.4); White Blood Count 6.26 K/uL (4.8-10.8)
[2020-04-09 06:55] LABS: Albumin Level 2.5 gm/dl (3.4-5.0); BUN Creatinine Ratio 17.2 (10-20); Bilirubin Direct 0.5 mg/dl (0-0.2); Calcium 8.2 mg/dl (8.5-10.1); Est GFR (African American) 99.9; Est GFR (Non-African American) 86.2; Potassium 3.7 mmol/L (3.5-5.1); Total Protein 6.1 gm/dl (6.4-8.2)
--- NOTE | 2020-04-09 07:40 | Surgery Progress Note ---
Date of Service April 09, 2020 Assessment & Plan (1) Choledocholithiasis: Cholelithiasis with a bile leak Patient's drainage is diminished significantly Leave drain for now and removed prior to discharge Continue IV antibiotics Continue advance diet and activity Plan discharge tomorrow morning if patient progresses She has oral antibiotics at home and also pain medication Admission and Anticipated Discharge Date Admission Date: April 06, 2020 Results & Data ([facility]) Vital Signs (Past 12 Hours) Vital Signs Temp Pulse Resp BP Pulse Ox 04/08/20 23:49 36.8 C 77 18 128/86 99 PG Care Time/CCT Total # of Minutes Spent Total Time Spent with Patient: Total time spent is greater than 50% in coordination of care (as documented) at patient's floor/unit and/or counseling patient: Coding Level of Care Code None Diagnoses Choledocholithiasis K80.50
[2020-04-09] MEDS: ROSUVASTATIN CALCIUM 5 MG TAB PO SCH (08:12)
[2020-04-09] MEDS: PANTOprazole 40 MG TAB PO SCH (08:13)
[2020-04-09] MEDS: CHOLECALCIFEROL 1,000 UNITS 25 MCG TAB PO SCH (08:13)
[2020-04-09] MEDS: hydroCHLOROthiazide 25 MG TAB PO SCH (08:13)
[2020-04-09] MEDS: CYANOCOBALAMIN 500 MCG TABLET (VITAMIN B-12) PO SCH (08:14)
[2020-04-09] MEDS: ENALAPRIL MALEATE 10 MG TAB PO SCH (08:14)
--- NOTE | 2020-04-09 08:50 | Pharmacy Report ---
Pharmacy Glycemic Short Note 2 - Date of Service April 09, 2020 - Glycemic Short BSG Results (Last 24 hours): OUTPATIENT ANTIDIABETIC REGIMEN: * Basaglar 38-40 units BID * Metformin 1000 mg PO BIDM * Victoza 1.8 mg SC daily * A1c = 6.4 % (03/30/20) ASSESSMENT: 04/09/20 * BSGs well controlled yesterday: [id number] mg/dL * Received total of 87 units of insulin: 65 units basal + 22 units bolus * Novolog loosened slightly yesterday given steroids likely wore off * Fasting BSG this AM of 109 mg/dL * Will reduce basal insulin regimen by ~ 10% today to prevent hypoglycemia * Will slightly loosen CF/CR this AM 04/08/20 * BSGs yesterday were very poorly controlled 186, 236, 221, 296 mg/dL * Patient did receive 8 mg IV dexamethasone in OR yesterday, which may help to explain this * Novolog tightened with dinner yesterday and continued this morning * Fasting BSG this AM of 145 mg/dL * Received 82 units of insulin yesterday (60 of which was basal) * Will give Lantus 40 units this morning and utilize Lantus scale this evening (to provide at least 60 units) * Now that we are ~24 hours post IV dexamethasone - will slightly loosen CF/carb ratio 04/07/20 * RYAN is a 54 year old female who presented to [facility] ED with persistent nausea and vomiting x 24-48 hours. * POD #8 s/p laparoscopic cholecystectomy (gangrenous gallbladder) * Pharmacy consulted for glycemic management during this recent admission - will use this data to guide treatment decisions * Patient NPO today for ERCP, Zosyn ordered empirically for possible isa rointestinal infection * Fasting BSG this morning of 186 mg/dL -> no basal insulin received last even ing * Will give Lantus 20 units (~50% of home AM Basaglar dose) due to NPO status and reassess postoperatively PLAN FOR INPATIENT GLYCEMIC CONTROL: * Hold outpatient oral diabetes medications * Basal insulin - decreased * Lantus 40 units SC qAM + 20 units SC HS * Bolus insulin - loosened CF/CR * NovoLog per scale ACHS or Q6hrs while NPO * Goal Range: Low 110 mg/dL - High 140 mg/dL * Correction Factor: 20 mg/dL/unit * Nutritional / Prandial insulin per carb ratio of 1 unit per 7 grams CHO consumed PLAN FOR DISCHARGE: * HbA1c of 6.4% demonstrates very good glycemic control as an outpatient * Patient can likely be discharged with current outpatient regimen provided she is not experiencing hypoglycemia
[2020-04-09] MEDS: INSULIN ASPART 100 UNITS/ML 3 ML PEN SC SCH ×4 (08:55→21:05)
[2020-04-09] MEDS ORDERED: INSULIN GLARGINE SOLOSTAR 100 UNITS/ML 3 ML PEN SC SCH ×2 (09:00→21:00)
--- NOTE | 2020-04-09 09:50 | Hospitalist Progress Note ---
Date of Service April 09, 2020 Assessment & Plan (1) Choledocholithiasis: * s/p cholecsytectomy for gangrenous GB 03/30 discharged 04/[address] Ellis. Developed n/v with progression of new onset abdominal pain, Tbili 6.3 (Direct 4.8), AST 336, ALT 311, Alk Phos 450 * CTA/P with 6.2cm ovoid fluid-filled structure at [facility] with mild peripheral enhancement along inferior margin with standing/trace free fluid * Management per surgery * GI on consult * s/p ERCP on 04/[address] Guillory -- c/w bile leak from cystic duct remnant, choledocholithiasis found and complete removal accomplished. Biliary tree with pus c/w acute cholangitis. 1 plastic pancreatic stent (plus indomethacin to reduce post-ERCP pancreatitis) and 1 covered metal biliary stent to common bile duct * Diet advanced this morning -- likely to remain additional 1-2 days inpatient * PT/OT/pain management/DVT prophylaxis per primary service * On Zosyn (day 4 of therapy) as she was discharged on Augmentin 04/02 and will continue at discharge as she already has this prescription * h/h stable at 11.4/35.8 -- likely dilutional from IVF * LFTs improving -- Tbili 1.0, AST 33, ALT 122, Alk phos 243 * Lipase 1110 --> patient without pain on exam or pain reported. Will repeat in AM to ensure trending down. Has been tolerating diet without difficulty or increased pain. (2) Cholangitis: As above (3) Bile leak, postoperative: As above (4) History of endoscopic retrograde cholangiopancreatography: As above (5) Elevated LFTs: As above, improving (6) Controlled type 2 diabetes mellitus, with long-term current use of insulin: * Pharmacy consulted for glycemic control. * Outpatient metformin, Victoza, Basaglar on hold and to be resumed at discharge * ISS/Accuchecks while inpatient * A1c 6.3, down from prior 6.4 on 03/30 * Continue to monitor -- has been 109, 146 today (7) Nausea & vomiting: * Treat above -- resolved (8) Abdominal pain: * Almost resolved (9) History of laparoscopic cholecystectomy: * Noted. On 03/30 (10) Dyslipidemia: * Rosuvastatin on hold (11) Essential hypertension: * BP stable 131/71 * HCTZ 25mg, Ramipril 10mg resumed * Continue to monitor (12) Hypokalemia: * K 3.2 -- ordered 40meq PO * Mag 2.2 * RESVOLED -- K 3.7 (13) Elevated lipase: See above - trend in AM (14) Acid reflux: * Had been using nexium OTC outpatient --> improvement with protonix 40mg PO daily and will send prescription to her pharmacy to continue at discharge (15) DVT prophylaxis: * SCDs * Chemoprophylaxis per primary service -- none currently ordered Dispo: likely be discharged in AM per primary service Thank you for allowing hospitalist team to participate in the care of Mrs. Franklin. Hospitalist service will follow along. Admission and Anticipated Discharge Date Admission Date: April 06, 2020 Subjective Patient states abdominal pain is drastically improved. Minimally tender at GILMAR site. Eating/drinking without difficulty. Several BM this morning but has decreased in frequency. Some issues with her IV this morning but improved with new site. Drain output has slowed substantially and she states plan is to remove tomorrow prior to discharge. States indigestion/reflux type symptoms have improved with the Protonix and we discussed continuing this at discharge in lieu of her Nexium. Patient agreeable and will send prescription to [place] pharmacy for discharge. Denies fevers, chills, chest pain, shortness of breath, nausea, vomiting, dysuria at this time. Review of Systems Review of Systems: All systems reviewed & are unremarkable except as noted in HPI & below Physical Exam Constitutional: well developed, well nourished and + obese; no acute distress Eyes: + anicteric sclerae and PERRL Neck: normal visual inspection Respiratory: normal respiratory effort, lungs clear to auscultation Auscultation: + diminished lung sounds Cardiovascular: RRR, no murmur, no edema Gastrointestinal (Abdomen): Inspection/Auscultation: normal bowel sounds Percussion/Palpation: abdomen soft; abdomen nontender, no guarding and abdomen not rigid surgical incisions c/d/i GILMAR drain with scant brown drainage, erythema around drain site, no evidence of purulent drainage Musculoskeletal: no cyanosis or clubbing, extremities motor strength 5/5 Skin: warm, dry Neurologic: PERRL, EOMI, accommodation nl, no face palsy, no dysarthria Psychiatric: A+Ox3, euthymic affect Orientation: alert and oriented x 3 Lymphatic: no cervical or axillary lymphadenopathy Results & Data Results & Data ([facility]) Vital Signs (Past 12 Hours) Vital Signs Temp Pulse Resp BP Pulse Ox 04/09/20 07:20 36.7 C 69 16 131/71 94 04/08/20 23:49 36.8 C 77 18 128/86 99 Laboratory Results 04/09/20 04/09/20 04/09/20 Range/Units 08:29 05:17 05:17 WBC 6.26 (4.8-10.8) K/uL RBC 4.36 (4.2-5.4) M/uL Hgb 11.4 L (12.0-16.0) g/dL Hct 35.8 L (37-47) % MCV 82.1 (80-100) fL MCH 26.1 (25-34) pg MCHC 31.8 L (32-36) g/dL RDW Std Deviation 46.3 (36.4-46.3) fL RDW Coeff of Jim 15.5 H (11.5-14.5) % Plt Count 192 (130-400) K/uL MPV 9.6 (7.4-10.4) fL Sodium 139 (136-145) mmol/L Potassium 3.7 (3.5-5.1) mmol/L Chloride 106 (98-107) mmol/L Carbon Dioxide 26 (21-32) mmol/L Anion Gap 7.0 (3-11) BUN 13 (7-18) mg/dl Creatinine 0.78 D (0.6-1.2) mg/dl Est Cr Clr Drug Dosing 101.0 ml/min Est GFR ( Amer) 99.9 Est GFR (Non-Af Amer) 86.2 BUN/Creatinine Ratio 17.2 (10-20) Glucose 133 H (70-99) mg/dl POC Glucose 109 H (70-99) mg/dl Calcium 8.2 L (8.5-10.1) mg/dl Total Bilirubin 1.0 D (0.2-1) mg/dl Direct Bilirubin 0.5 H (0-0.2) mg/dl AST 33 (15-37) U/L ALT 122 H (12-78) U/L Alkaline Phosphatase 243 H (45-117) U/L Total Protein 6.1 L (6.4-8.2) gm/dl Albumin 2.5 L (3.4-5.0) gm/dl Lipase 1110 H (73-393) U/L 04/08/20 04/08/20 04/08/20 Range/Units 21:32 17:28 11:34 WBC (4.8-10.8) K/uL RBC (4.2-5.4) M/uL Hgb (12.0-16.0) g/dL Hct (37-47) % MCV (80-100) fL MCH (25-34) pg MCHC (32-36) g/dL RDW Std Deviation (36.4-46.3) fL RDW Coeff of Jim (11.5-14.5) % Plt Count (130-400) K/uL MPV (7.4-10.4) fL Sodium (136-145) mmol/L Potassium (3.5-5.1) mmol/L Chloride (98-107) mmol/L Carbon Dioxide (21-32) mmol/L Anion Gap (3-11) BUN (7-18) mg/dl Creatinine (0.6-1.2) mg/dl Est Cr Clr Drug Dosing ml/min Est GFR ( Amer) Est GFR (Non-Af Amer) BUN/Creatinine Ratio (10-20) Glucose (70-99) mg/dl POC Glucose 154 H 109 H 143 H (70-99) mg/dl Calcium (8.5-10.1) mg/dl Total Bilirubin (0.2-1) mg/dl Direct Bilirubin (0-0.2) mg/dl AST (15-37) U/L ALT (12-78) U/L Alkaline Phosphatase (45-117) U/L Total Protein (6.4-8.2) gm/dl Albumin (3.4-5.0) gm/dl Lipase (73-393) U/L PG Care Time/CCT Total # of Minutes Spent Total Time Spent with Patient: Total time spent is greater than 50% in coordination of care (as documented) at patient's floor/unit and/or counseling patient: Coding Level of Care Code 56439 Subseq Hosp Care Lvl 2 Diagnoses Choledocholithiasis K80.50 Cholangitis K83.09 Bile leak, postoperative K91.89; K83.8 History of endoscopic retrograde cholangiopancreatography Z98.890 Elevated LFTs R79.89 Controlled type 2 diabetes mellitus, with long-term current use of insulin E11.9; Z79.4 Nausea & vomiting R11.2 Vomiting Intractability: non-intractable Vomiting type: unspecified Abdominal pain R10.11 Abdominal location: right upper quadrant History of laparoscopic cholecystectomy Z90.49 Dyslipidemia E78.5 Essential hypertension I10 Hypokalemia E87.6 Elevated lipase R74.8 Acid reflux K21.9 DVT prophylaxis Z29.9 (1) Nausea & vomiting Vomiting Intractability: non-intractable Vomiting type: unspecified Qualified Code(s): R11.2 - Nausea with vomiting, unspecified (2) Abdominal pain Abdominal location: right upper quadrant Qualified Code(s): R10.11 - Right upper quadrant pain
[2020-04-09] MEDS: SODIUM CHLORIDE 0.9% 1000ML 1,000 ML IV SCH (14:54)
[2020-04-10] MEDS: PIPERACILLIN/TAZOBACTAM 4.5 GM in DEXTROSE 5% 100 ML IV SCH (06:04)
[2020-04-10 06:22] LABS: Hematocrit (blood only) 37.1 % (37-47); Hemoglobin 12.1 g/dL (12.0-16.0); Mean Corpuscular Hemoglobin 26.7 pg (25-34); Mean Corpuscular Hgb Conc 32.6 g/dL (32-36); Mean Corpuscular Volume 81.7 fL (80-100); Mean Platelet Volume 9.6 fL (7.4-10.4); Platelet Count 211 K/uL (130-400); RDW Coefficient of Variation 15.3 % (11.5-14.5); RDW Standard Deviation 45.3 fL (36.4-46.3); Red Blood Count 4.54 M/uL (4.2-5.4); White Blood Count 8.79 K/uL (4.8-10.8)
[2020-04-10 06:48] LABS: Albumin Level 2.7 gm/dl (3.4-5.0); BUN Creatinine Ratio 13.6 (10-20); Bilirubin Direct 0.5 mg/dl (0-0.2); Calcium 8.9 mg/dl (8.5-10.1); Creatinine Clr Calc Pharmacy 103.6 ml/min; Est GFR (African American) 103.1; Est GFR (Non-African American) 88.9; Potassium 3.7 mmol/L (3.5-5.1)
[2020-04-10 06:50] LABS: Total Protein 6.6 gm/dl (6.4-8.2)
--- NOTE | 2020-04-10 08:50 | Pharmacy Report ---
Pharmacy Glycemic Short Note 2 - Date of Service April 10, 2020 - Glycemic Short BSG Results (Last 24 hours): OUTPATIENT ANTIDIABETIC REGIMEN: * Basaglar 38-40 units BID * Metformin 1000 mg PO BIDM * Victoza 1.8 mg SC daily * A1c = 6.4 % (03/30/20) ASSESSMENT: 04/10/20 * BSGs well controlled yesterday: [phone] mg/dL * Received a total of 80 units of insulin: 60 units basal + 20 units bolus * Novolog parameters were loosened yesterday * Fasting BSG this AM was 105 mg/dL * Believe 60 units of basal is appropriate - will split into 30 units BID today * No changes to Novolog parameters necessary 04/09/20 * BSGs well controlled yesterday: [phone] mg/dL * Received total of 87 units of insulin: 65 units basal + 22 units bolus * Novolog loosened slightly yesterday given steroids likely wore off * Fasting BSG this AM of 109 mg/dL * Will reduce basal insulin regimen by ~ 10% today to prevent hypoglycemia * Will slightly loosen CF/CR this AM 04/08/20 * BSGs yesterday were very poorly controlled 186, 236, 221, 296 mg/dL * Patient did receive 8 mg IV dexamethasone in OR yesterday, which may help to explain this * Novolog tightened with dinner yesterday and continued this morning * Fasting BSG this AM of 145 mg/dL * Received 82 units of insulin yesterday (60 of which was basal) * Will give Lantus 40 units this morning and utilize Lantus scale this evening (to provide at least 60 units) * Now that we are ~24 hours post IV dexamethasone - will slightly loosen CF/carb ratio 04/07/20 * RYAN is a 54 year old female who presented to [facility] ED with persistent nausea and vomiting x 24-48 hours. * POD #8 s/p laparoscopic cholecystectomy (gangrenous gallbladder) * Pharmacy consulted for glycemic management during this recent admission - will use this data to guide treatment decisions * Patient NPO today for ERCP, Zosyn ordered empirically for possible gastrointestinal infection * Fasting BSG this morning of 186 mg/dL -> no basal insulin received last evening * Will give Lantus 20 units (~50% of home AM Basaglar dose) due to NPO status and reassess postoperatively PLAN FOR INPATIENT GLYCEMIC CONTROL: * Hold outpatient oral diabetes medications * Basal insulin - split into 50% AM/50% PM * Lantus 30 units SC BID * Bolus insulin - no change * NovoLog per scale ACHS or Q6hrs while NPO * Goal Range: Low 110 mg/dL - High 140 mg/dL * Correction Factor: 20 mg/dL/unit * Nutritional / Prandial insulin per carb ratio of 1 unit per 7 grams CHO consumed PLAN FOR DISCHARGE: * HbA1c of 6.4% demonstrates very good glycemic control as an outpatient * Patient can likely be discharged with current outpatient regimen provided she is not experiencing hypoglycemia
[2020-04-10] MEDS ORDERED: INSULIN GLARGINE SOLOSTAR 100 UNITS/ML 3 ML PEN SC SCH (09:00)
[2020-04-10] MEDS: hydroCHLOROthiazide 25 MG TAB PO SCH (09:14)
[2020-04-10] MEDS: ENALAPRIL MALEATE 10 MG TAB PO SCH (09:14)
[2020-04-10] MEDS: CHOLECALCIFEROL 1,000 UNITS 25 MCG TAB PO SCH (09:14)
[2020-04-10] MEDS: CYANOCOBALAMIN 500 MCG TABLET (VITAMIN B-12) PO SCH (09:14)
[2020-04-10] MEDS: ROSUVASTATIN CALCIUM 5 MG TAB PO SCH (09:14)
[2020-04-10] MEDS: PANTOprazole 40 MG TAB PO SCH (09:14)
[2020-04-10] MEDS: INSULIN ASPART 100 UNITS/ML 3 ML PEN SC SCH (09:18)
--- NOTE | 2020-04-10 09:46 | Communication Note ---
Date of Service: April 10, 2020 Patient anxious for discharge this morning. Discharge order already placed by primary service. Patient without abdominal pain with eating. LFTs improving. Plans to discharge on Augmentin and follow up for stent removal. Lipase improving. Ok with medicine for discharge with follow-up as scheduled. Protonix sent to pharmacy for improvement of reflux symptoms -- to follow up with PCP for continuation if continues to be helpful as she was on Nexium [employer] OTC.
--- NOTE | 2020-04-13 08:58 | Discharge Summary (DS) ---
PRINCIPAL DIAGNOSIS: Choledocholithiasis with bile leak. PROCEDURES: The patient underwent an ERCP with stent placement. HISTORY OF PRESENT ILLNESS: The patient is a 54-year-old female who on 03/30/2020 underwent urgent laparoscopic cholecystectomy, which was very difficult because of acute and chronic disease. She did have a drain placement at that time. She did relatively well in the hospital and was felt stable for discharge home on 04/02/2020 with the drain. On 04/06/2020, she had increased output from the drain and abdominal pain and nausea, presenting to the Emergency Room and found to have fluid in the gallbladder fossa, possibly a bile leak. She did undergo ERCP, which did show a bile leak and had stones in her common bile duct causing obstruction. She did undergo sphincterotomy and stent placement, which she tolerated very well. This was done on 04/07/2020. The patient progressed very well over the next several days and was felt stable for discharge on 04/10/2020. We did remove the drain. She was to have the stent removed in approximately 8 weeks and followup in the surgical clinic within 1 week.
== END 2020-04-10 10:49 | disposition home or self-care (01) | DRG 394 ==
LOC: ED 19:20 → 3N 21:18